=== PATIENT | female | born 1965 | race Two or more races ===

== ENCOUNTER 2018-12-14 20:39 | Emergency (ER) | payer OTHER ==
[~2018-12-14] VITALS: Ht 157.5 cm; Wt 96.6 kg
[2018-12-14] MEDS ORDERED: [UNRECOGNIZED DRUG - OTHER] (20:49)
[2018-12-14] MEDS ORDERED: LOSARTAN-HCTZ1 EACH (20:50)
== END 2018-12-15 03:49 | disposition home or self-care (01) ==
LOC: ER 20:39
DX: N39.0 Urinary tract infection, site not specified (principal); M25.562 Pain in left knee

== ENCOUNTER 2019-04-15 11:25 | Inpatient (IN) | payer OTHER ==
[~2019-04-15] VITALS: Ht 157.5 cm; Wt 96.6 kg
[~2019-04-15 11:25] MED LIST: HYDROXYCHLOROQUINE; LOSARTAN-HCTZ1 EACH; VITAMINA D3; [UNRECOGNIZED DRUG - OTHER]
--- NOTE | 2019-04-15 12:30 | NUR ---
SE RECIBE PTE ALERTA Y ORIENTADA X3,REFIERE DOLOR ABDOMINAL ,REFIERE QUE ESTA TOMANDO ANTIBIOTICOS POR BELGICA INFECCION REFIERE QUE LOS SNTIBIOTICOS LE HICIERON PRADEEP EN EL ABDOMEN.
--- NOTE | 2019-04-15 13:30 | NUR ---
SE ORIENTA A PTE SOBRE PROCESO DE VENOPUNCION, MILLICENT DE MUESTRAS, ADMINISTRACION DE MED IV & ESTUDIOS A REALIZAR LOS CUALES BAJAN A PTE A CENTRO DE IMAGENES A PETICION DE RADIOLOGO.
[2019-04-19] MEDS ORDERED: VITAMIN D3400 UNI1 (11:27)
[2019-04-19] MEDS ORDERED: HYDROXYCHLOROQ200 MG (11:29)
[2019-05-17] MEDS ORDERED: Neurin-Sl Tablet Sl SL (09:23)
[2019-05-17] MEDS ORDERED: PREDNISONE 5MG PO (09:23)
[2019-05-17] MEDS ORDERED: LOSARTAN POTAS100 MG PO (09:23)
[2019-05-17] MEDS ORDERED: Vitamin B-6 PO (09:23)
[2019-05-17] MEDS ORDERED: ULTRAM50 MG PO (09:23)
[2019-05-17] MEDS ORDERED: INTESTINEX680 M1 PO (09:23)
[2019-05-17] MEDS ORDERED: AMLODIPINE BESYL5 MG PO (09:23)
[2019-05-17] MEDS ORDERED: CARAFATE1 GM PO (09:23)
[2019-05-17] MEDS ORDERED: OMEPRAZOLE MAGN20 MG PO (09:25)
== END 2019-05-17 12:35 | disposition home or self-care (01) | DRG 329 ==
LOC: ER 11:25 → ICU 14:31 → ICU-2 14:31 → ICU 04-25 11:48 → SURG 05-04 14:08 → SURH 05-13 12:43
PROVIDERS: ADMIT Surgery
PROC: 30233N1 Transfusion of Nonautologous Red Blood Cells into Peripheral Vein, Percutaneous Approach (ICD-10-PCS; 2019-04-15)
PROC: BW21ZZZ Computerized Tomography (CT Scan) of Abdomen and Pelvis (ICD-10-PCS; 2019-04-15)
PROC: 02HV33Z Insertion of Infusion Device into Superior Vena Cava, Percutaneous Approach (ICD-10-PCS; 2019-04-15)
PROC: 05HB33Z Insertion of Infusion Device into Right Basilic Vein, Percutaneous Approach (ICD-10-PCS; 2019-04-16)
PROC: 3E0336Z Introduction of Nutritional Substance into Peripheral Vein, Percutaneous Approach (ICD-10-PCS; 2019-04-16)
PROC: 0DH67UZ Insertion of Feeding Device into Stomach, Via Natural or Artificial Opening (ICD-10-PCS; 2019-04-18)
PROC: 3E0G76Z Introduction of Nutritional Substance into Upper GI, Via Natural or Artificial Opening (ICD-10-PCS; 2019-04-18)
PROC: BW21Y0Z Computerized Tomography (CT Scan) of Abdomen and Pelvis using Other Contrast, Unenhanced and Enhanced (ICD-10-PCS; 2019-04-19)
PROC: 0W9F30Z Drainage of Abdominal Wall with Drainage Device, Percutaneous Approach (ICD-10-PCS; 2019-04-20)
PROC: B246ZZZ Ultrasonography of Right and Left Heart (ICD-10-PCS; 2019-04-21)
PROC: B54DZZZ Ultrasonography of Bilateral Lower Extremity Veins (ICD-10-PCS; 2019-04-21)
PROC: 0BH17EZ Insertion of Endotracheal Airway into Trachea, Via Natural or Artificial Opening (ICD-10-PCS; 2019-04-21)
PROC: 5A1945Z Respiratory Ventilation, 24-96 Consecutive Hours (ICD-10-PCS; 2019-04-21)
PROC: 4A033R1 Measurement of Arterial Saturation, Peripheral, Percutaneous Approach (ICD-10-PCS; 2019-04-21)
PROC: 3E0F7GC Introduction of Other Therapeutic Substance into Respiratory Tract, Via Natural or Artificial Opening (ICD-10-PCS; 2019-04-21)
PROC: BB24Y0Z Computerized Tomography (CT Scan) of Bilateral Lungs using Other Contrast, Unenhanced and Enhanced (ICD-10-PCS; 2019-04-26)
PROC: BW21Y0Z Computerized Tomography (CT Scan) of Abdomen and Pelvis using Other Contrast, Unenhanced and Enhanced (ICD-10-PCS; 2019-04-26)
PROC: 0D1N0Z4 Bypass Sigmoid Colon to Cutaneous, Open Approach (ICD-10-PCS; 2019-04-27)
PROC: 0W9F0ZZ Drainage of Abdominal Wall, Open Approach (ICD-10-PCS; 2019-04-27)
PROC: 0DTU0ZZ Resection of Omentum, Open Approach (ICD-10-PCS; 2019-04-27)
PROC: 0DTN0ZZ Resection of Sigmoid Colon, Open Approach (ICD-10-PCS; principal; 2019-04-27 03:15)
PROC: 4A12X4Z Monitoring of Cardiac Electrical Activity, External Approach (ICD-10-PCS; 2019-05-04)
PROC: BW21Y0Z Computerized Tomography (CT Scan) of Abdomen and Pelvis using Other Contrast, Unenhanced and Enhanced (ICD-10-PCS; 2019-05-09)
PROC: 0W9F30Z Drainage of Abdominal Wall with Drainage Device, Percutaneous Approach (ICD-10-PCS; 2019-05-11)
PROC: 0W9930Z Drainage of Right Pleural Cavity with Drainage Device, Percutaneous Approach (ICD-10-PCS; 2019-05-12)
DX: K57.21 Diverticulitis of large intestine with perforation and abscess with bleeding (principal); A41.9 Sepsis, unspecified organism; J95.821 Acute postprocedural respiratory failure; E27.49 Other adrenocortical insufficiency; N39.0 Urinary tract infection, site not specified; R18.8 Other ascites; J91.8 Pleural effusion in other conditions classified elsewhere; I31.3 Pericardial effusion (noninflammatory); N17.8 Other acute kidney failure; I27.0 Primary pulmonary hypertension; M96.89 Other intraoperative and postprocedural complications and disorders of the musculoskeletal system; J95.89 Other postprocedural complications and disorders of respiratory system, not elsewhere classified; J98.11 Atelectasis; L02.211 Cutaneous abscess of abdominal wall; E09.9 Drug or chemical induced diabetes mellitus without complications; T38.0X5A Adverse effect of glucocorticoids and synthetic analogues, initial encounter; D72.828 Other elevated white blood cell count; E86.0 Dehydration; M06.89 Other specified rheumatoid arthritis, multiple sites; K52.89 Other specified noninfective gastroenteritis and colitis; K66.8 Other specified disorders of peritoneum; I34.0 Nonrheumatic mitral (valve) insufficiency; I07.1 Rheumatic tricuspid insufficiency; F43.22 Adjustment disorder with anxiety; D50.0 Iron deficiency anemia secondary to blood loss (chronic); B96.7 Clostridium perfringens [C. perfringens] as the cause of diseases classified elsewhere; B95.2 Enterococcus as the cause of diseases classified elsewhere; B96.89 Other specified bacterial agents as the cause of diseases classified elsewhere; B96.6 Bacteroides fragilis [B. fragilis] as the cause of diseases classified elsewhere; E88.09 Other disorders of plasma-protein metabolism, not elsewhere classified

== ENCOUNTER 2020-01-16 06:30 | Day surgery (SDC) | payer OTHER ==
[~2020-01-16 06:30] MED LIST changes: +AMLODIPINE BESYL5 MG PO; +CARAFATE1 GM PO; +HYDROXYCHLOROQ200 MG; +INTESTINEX680 M1 PO; +LOSARTAN POTAS100 MG PO; +Neurin-Sl Tablet Sl SL; +OMEPRAZOLE MAGN20 MG PO; +PREDNISONE 5MG PO; +ULTRAM50 MG PO; +VITAMIN D3400 UNI1; +Vitamin B-6 PO
== END 2020-01-16 14:30 | disposition home or self-care (01) ==
LOC: AMB-ENDOS 06:30 → ADM 14:00 → AMB-ENDOS 14:30
PROVIDERS: ATTEND Surgery
DX: K62.89 Other specified diseases of anus and rectum (principal); Z93.3 Colostomy status; Z20.828 Contact with and (suspected) exposure to other viral communicable diseases

== ENCOUNTER 2020-04-18 10:57 | Emergency (ER) | payer OTHER ==
[~2020-04-18] VITALS: Ht 157.5 cm; Wt 72.6 kg
[2020-04-18] MEDS ORDERED: TIVORBEX20 MG (11:04)
[2020-04-18] MEDS ORDERED: CIPRO500 MG PO (16:06)
[2020-04-18] MEDS ORDERED: KETO10TA2 PO (16:07)
== END 2020-04-18 19:34 | disposition home or self-care (01) ==
LOC: ER 10:57
DX: N39.0 Urinary tract infection, site not specified (principal); R10.84 Generalized abdominal pain; Z03.818 Encounter for observation for suspected exposure to other biological agents ruled out

== ENCOUNTER → 2020-05-15 08:00 | Outpatient (CLI) | payer OTHER ==
[~2020-05-15 08:00] MED LIST changes: +CIPRO500 MG PO; +KETO10TA2 PO; +TIVORBEX20 MG
== END | disposition home or self-care (01) ==
LOC: LAB 08:00 → SURH 05-22 10:30 → EDSTATUS 05-22 10:30 → SURH 05-22 13:30
PROVIDERS: ATTEND Surgery
DX: K57.20 Diverticulitis of large intestine with perforation and abscess without bleeding (principal); Z20.828 Contact with and (suspected) exposure to other viral communicable diseases; Z93.3 Colostomy status; R10.32 Left lower quadrant pain; M05.8A Other rheumatoid arthritis with rheumatoid factor of other specified site; I10 Essential (primary) hypertension

== ENCOUNTER 2020-05-23 13:46 | Outpatient (CLI) | payer OTHER | END 2020-05-23 13:53 | disposition home or self-care (01) | LOC: LAB 13:46 | PROVIDERS: ATTEND Internal Medicine Geriatric Medicine | DX: U07.1 COVID-19 (principal) ==

== ENCOUNTER 2020-07-17 07:00 | Inpatient (IN) | payer OTHER ==
[~2020-07-17] VITALS: Ht 157.5 cm; Wt 77.1 kg
== END 2020-07-26 13:07 | DRG 470 ==
LOC: O/R 07-24 06:00 → SURH 07-24 08:49
PROVIDERS: ADMIT Orthopaedic Surgery; ATTEND Orthopaedic Surgery
PROC: 0SRC0J9 Replacement of Right Knee Joint with Synthetic Substitute, Cemented, Open Approach (ICD-10-PCS; principal; 2020-07-24 06:00)
DX: M17.11 Unilateral primary osteoarthritis, right knee (principal); D62 Acute posthemorrhagic anemia; I11.9 Hypertensive heart disease without heart failure; Z79.52 Long term (current) use of systemic steroids; Z20.822 Contact with and (suspected) exposure to COVID-19

== ENCOUNTER 2021-05-17 17:32 | Emergency (ER) | payer OTHER ==
[~2021-05-17] VITALS: Ht 157.5 cm; Wt 81.2 kg
[2021-05-17] MEDS ORDERED: CIPRO500 MG PO (21:32)
== END 2021-05-17 21:41 | disposition home or self-care (01) ==
LOC: ER 17:32
DX: N39.0 Urinary tract infection, site not specified (principal); N18.9 Chronic kidney disease, unspecified; E86.0 Dehydration

== ENCOUNTER 2021-06-28 21:43 | Emergency (ER) | payer OTHER ==
[~2021-06-28] VITALS: Ht 157.5 cm; Wt 81.2 kg
[2021-06-29] MEDS ORDERED: CEFDINIR300 MG PO (04:08)
[2021-06-29] MEDS ORDERED: PEPCID AC20 MG PO (04:08)
== END 2021-06-29 09:13 | disposition home or self-care (01) ==
LOC: ER 21:43
DX: K29.60 Other gastritis without bleeding (principal); Z98.890 Other specified postprocedural states; E86.0 Dehydration; N39.0 Urinary tract infection, site not specified; I10 Essential (primary) hypertension

== ENCOUNTER 2021-07-17 15:31 | Inpatient (IN) | payer OTHER ==
[~2021-07-17] VITALS: Ht 157.5 cm; Wt 81.2 kg
[~2021-07-17 15:31] MED LIST changes: +CEFDINIR300 MG PO; +PEPCID AC20 MG PO
[2021-07-17] MEDS ORDERED: TIVORBEX20 MG (15:39)
[2021-07-23] MEDS ORDERED: INTEGRA F CAPS1 EACH PO (15:07)
[2021-07-23] MEDS ORDERED: ABANEU-SL TABL1 EACH SL (15:07)
[2021-07-23] MEDS ORDERED: PEPCID AC20 MG PO (15:07)
== END 2021-07-23 18:20 | disposition home or self-care (01) | DRG 690 ==
LOC: ER 15:31 → SEC-K 20:16 → MEDI 20:16
PROVIDERS: ADMIT Internal Medicine Geriatric Medicine; ATTEND Internal Medicine Geriatric Medicine
DX: N39.0 Urinary tract infection, site not specified (principal); B96.89 Other specified bacterial agents as the cause of diseases classified elsewhere; E86.0 Dehydration; E83.52 Hypercalcemia; D72.829 Elevated white blood cell count, unspecified; E87.8 Other disorders of electrolyte and fluid balance, not elsewhere classified; E05.80 Other thyrotoxicosis without thyrotoxic crisis or storm; Z74.01 Bed confinement status; Z20.822 Contact with and (suspected) exposure to COVID-19; E11.22 Type 2 diabetes mellitus with diabetic chronic kidney disease; N18.9 Chronic kidney disease, unspecified; Z79.4 Long term (current) use of insulin

== ENCOUNTER 2022-09-23 17:16 | Inpatient (IN) | payer OTHER ==
[~2022-09-23] VITALS: Ht 157.5 cm; Wt 81.2 kg
[~2022-09-23 17:16] MED LIST changes: +ABANEU-SL TABL1 EACH SL; +INTEGRA F CAPS1 EACH PO
--- NOTE | 2022-09-23 17:52 | NUR ---
PACIENTE ALERTAS Y ORIENTADA X3, ACOMPANADA DE HIJO. ESTA REFIERE DR E MEDEL LE INDICO PASAR POR ER PARA ADMISION POR RESULTADO DE PROTEINAS ELEVADAS. (PACIENTE NO TIENE REFERIDO NI RESULTADO DE LABORATORIO)
[2022-09-23] MEDS ORDERED: MILLIPRED5 MG (17:56)
--- NOTE | 2022-09-23 21:23 | NUR ---
SE ORIENTA PTE SOBRE MILLICENT DE MUESTRAS LAS CUALES SE ETRAEN BAJO MEDIDAS ASEPTICAS.
--- NOTE | 2022-09-24 02:04 | NUR ---
SE ORIENTA A PTE SOBRE TRATAMIENTO A RECIBIR EN EL AREA LA MISMA REFIERE ENTENDER, SE CANALIZA EN BRAZO DERECHO CON ANGIO #20, EL MISMO ESTA PATENTE SIN EDEMA NI ERITEMA, SE COLOCA MEDICAMENTO JENNIFER ORDEN MEDICA, SE BHARAT EN EMELIA CON VENA ABIERTA Y BARANDAS ELEVADAS.
--- NOTE | 2022-09-24 07:22 | NUR ---
SE RECIBE PTE DEL TURNO ANTERIOR, ALERTA Y ORIENTADA EN ELROY LIN ESFERAS, UBICADA EN EMELIA, NIVEL MAS BAJO, ESCAMILLA DE IDENTIFICACION Y BARANDAS ELEVADAS POR PRECAUCION, EN COMPANIA DE FAMILIAR. SE OBSERVA CON BUEN PATRON RESPIRATORIO. PIEL TIBIA AL TACTO. IV PATENTE Y RASHID DE EDEMA O ERITEMA RECIBIENDO 0.9% NSS @150ML/HR. PENDIENTE CONSULTA CON DR Junior MEDEL (MEDICINA INTERNA). SE MENTIENE BAJO OBSERVACION.
--- NOTE | 2022-09-24 15:38 | NUR ---
SE RECIBE PTE ALERTA Y ORIENTADA X3 EN COMPANIA DE FAMILIAR EN EMELIA CON BARANDAS ELEVADAS. PTE CON CANALIZACION EN BRAZO DERECHO SE OBSERVA AREA RASHID DE EDEMA Y ENROJECIMIENTO. PTE CON DRIP .9NSS BAJANDO A 150ML/HR. PTE PENDIENTE CONSULTA CON MEDICINA INTERNA DR. Racheal MEDEL. SE MANTIENE PTE EN OBSERVACION POR CAMBIO EN OBSERVACION. SE ORIENTA A NOTIFICAR CAMBIOS.
--- NOTE | 2022-09-25 00:56 | NUR ---
SE EDUCA PTE SOBRE USO Y EFECTO DE MEDICAMENTOS LA MISMA REFIERE ENTENDER, SE LE ADMINISTRA MEDICAMENTO JENNIFRE ORDEN MEDICA, LOS MISMOS AL MOMENTO SON EFECTIVOS, PTE EN EMELIA CON BARANDAS ELEVADAS.
--- NOTE | 2022-09-25 07:04 | NUR ---
SE RECIBE PTE FEMENINA DE 57 YRS ALERTA CONCIENTE Y TRANQUILA EN EMELIA CON BARABDA ELEVADA. PTE SE OBSERVA CON .9NSS 150ML HRS . SE MANTIENE EN CONSULTA CON LA
== END 2022-10-02 20:28 | disposition home or self-care (01) | DRG 872 ==
LOC: ER 17:16 → MEDI 09-25 09:36
PROVIDERS: ADMIT Internal Medicine; ATTEND Internal Medicine
PROC: BW211ZZ Computerized Tomography (CT Scan) of Abdomen and Pelvis using Low Osmolar Contrast (ICD-10-PCS; 2022-09-24)
PROC: BG44ZZZ Ultrasonography of Thyroid Gland (ICD-10-PCS; 2022-09-25)
PROC: 30233N1 Transfusion of Nonautologous Red Blood Cells into Peripheral Vein, Percutaneous Approach (ICD-10-PCS; principal; 2022-09-28)
DX: A41.9 Sepsis, unspecified organism (principal); N39.0 Urinary tract infection, site not specified; N17.9 Acute kidney failure, unspecified; E27.3 Drug-induced adrenocortical insufficiency; E05.80 Other thyrotoxicosis without thyrotoxic crisis or storm; D64.9 Anemia, unspecified; E86.0 Dehydration; E88.09 Other disorders of plasma-protein metabolism, not elsewhere classified; M06.9 Rheumatoid arthritis, unspecified; T38.0X5A Adverse effect of glucocorticoids and synthetic analogues, initial encounter; Y92.009 Unspecified place in unspecified non-institutional (private) residence as the place of occurrence of the external cause; Z93.3 Colostomy status; Z90.49 Acquired absence of other specified parts of digestive tract; Z79.52 Long term (current) use of systemic steroids

== ENCOUNTER 2022-11-06 13:49 | Outpatient (CLI) | payer OTHER ==
[~2022-11-06 13:49] MED LIST changes: +MILLIPRED5 MG
== END 2022-11-06 13:59 | disposition home or self-care (01) ==
LOC: RAD 13:49
PROVIDERS: ATTEND Orthopaedic Surgery
DX: M25.561 Pain in right knee (principal); M25.562 Pain in left knee

== ENCOUNTER 2022-11-28 11:32 | Outpatient (CLI) | payer OTHER | END 2022-11-28 11:36 | disposition home or self-care (01) | LOC: SONOGRAMA 11:32 | PROVIDERS: ATTEND Orthopaedic Surgery | DX: M25.512 Pain in left shoulder (principal); M25.511 Pain in right shoulder ==

== ENCOUNTER 2023-08-12 13:28 | Inpatient (IN) | payer OTHER ==
[~2023-08-12] VITALS: Ht 152.4 cm; Wt 72.6 kg
[2023-08-12] MEDS ORDERED: METAXALONE400 MG PO (13:59)
[2023-08-12] MEDS ORDERED: FAMOTIDINE/PF 20 MG/2 ML VIAL IV ONE (14:30)
[2023-08-12] MEDS ORDERED: ONDANSETRON HCL 2 MG/ML VIAL IV ONE (14:30)
[2023-08-12] MEDS ORDERED: 0.9 % SODIUM CHLORIDE 500 ML IV ONE (14:30)
[2023-08-12 16:00] LABS: MEAN CELL VOLUME 93.4 fL (80.00-100.00); MEAN CORPUSCULAR HGB CONC 33.2 g/dl (32.0-36.0); PLATELET COUNT 402 K/uL (150-450); RED BLOOD COUNT 2.19 M/uL (4.00-6.00); RED CELL DISTRIBUTION WIDTH 14.9 % (11.5-14.5)
[2023-08-12 16:04] LABS: HEMATOCRIT 20.5 % (36.0-45.00); HEMOGLOBIN 6.8 g/dL (12.0-15.00)
[2023-08-12] MEDS ORDERED: FUROsemide 20 MG/2 ML VIAL IV SCH ×2 (16:15→18:30)
[2023-08-12 16:32] LABS: CALCIUM 6.8 mg/dL (8.5-10.1); POTASSIUM 4.8 mEq/L (3.5-5.1)
[2023-08-12 16:49] LABS: PH,URINE 5.5 (5.0-8.0); URINE APPEARANCE Cloudy; URINE BILIRRUBIN Negative (NEGATIVE); URINE BLOOD Moderate; URINE COLOR Yellow; URINE LEUKOCYTE Negative; URINE NITRATE Negative; URINE PROTEIN >=1000 (NEGATIVE); URINE UROBILINOGEN 0.2 E.U./dl
[2023-08-12 16:52] LABS: URINE BACTERIA 527.9 uL (0.0-1933); URINE RBC 38.2 uL (0.0-20.8)
[2023-08-12 16:53] LABS: CREATININE SERUM 10.7 mg/dL (0.55-1.02); GFR 3.67
[2023-08-12 16:53] LABS: ob POSITIVE (NEGATIVE)
[2023-08-12 17:14] LABS: URINE GLUCOSE 250 MG/DL (NEGATIVE)
[2023-08-12] MEDS ORDERED: PANTOPRAZOLE SODIUM 40 MG/VIAL VIAL IV SCH (18:21)
[2023-08-12] MEDS ORDERED: 0.9 % SODIUM CHLORIDE 1,000 ML IV SCH (18:30)
[2023-08-12] MEDS ORDERED: ACETAMINOPHEN 500 MG GEL..CAP PO PRN (18:30)
[2023-08-12] MEDS ORDERED: SODIUM BICARBONATE 50 MEQ in SODIUM CHLORIDE 0.45 % 1,000 ML IV ONE (18:45)
[2023-08-12 19:58] LABS: PROTHROMBIN TIME 10.5 SECONDS (9.0-11.5)
[2023-08-12 20:41] LABS: ABG PH 7.282 (7.35-7.45); ABG pCO2 24.2 mmHg (35-45); BASE EXCESS -13.5 mmol/l; BICARBONATE 11.2 mmol/l (23-25); SaO2 98.7 %; Tco2 11.9 mmol/l
[2023-08-12 20:42] LABS: allen test SATISFACTORY; o2 32 %; puncture site RADIAL RIGHT
[2023-08-12] MEDS ORDERED: CEFTRIAXONE SODIUM 1,000 MG in DEXTROSE 5 % IN WATER 100 ML IV SCH (21:00)
[2023-08-12] MEDS ORDERED: SODIUM BICARBONATE 1 MEQ/ML DISP.SYRIN 50ML IV ONE (21:45)
[2023-08-13] MEDS ORDERED: IRON FUM,PS/FOLIC/BCOMP,C NO.9 1 CAP CAPSULE PO SCH (09:00)
[2023-08-13] MEDS ORDERED: CLOTRIMAZOLE 10 MG TROCHE MM SCH (17:00)
[2023-08-13] MEDS ORDERED: CEFTRIAXONE SODIUM 2,000 MG VIAL IV SCH (17:00)
[2023-08-13 20:17] LABS: ALBUMIN 2.2 gm/dL (3.4-5.0); BILIRUBIN TOTAL 0.29 mg/dL (0.3-1.2); GLOBULINA 3.7 G/DL (2.4-3.5); POTASSIUM 4.78 mEq/L (3.5-5.1); TOTAL PROTEIN 5.9 gm/dL (6.4-8.2)
[2023-08-13 20:22] LABS: CREATININE SERUM 9.84 mg/dL (0.55-1.02); GFR 4.04
[2023-08-13 20:23] LABS: CALCIUM 6.3 mg/dL (8.5-10.1)
[2023-08-13] MEDS ORDERED: hydrALAZINE HCL 20 MG VIAL IV PRN (23:00)
[2023-08-14 09:07] LABS: HEMATOCRIT 32.1 % (36.0-45.00); HEMOGLOBIN 10.9 g/dL (12.0-15.00); MEAN CELL VOLUME 91.1 fL (80.00-100.00); MEAN CORPUSCULAR HEMOGLOBIN 30.8 pg (27.00-32.0); MEAN CORPUSCULAR HGB CONC 33.8 g/dl (32.0-36.0); PLATELET COUNT 346 K/uL (150-450); RED BLOOD COUNT 3.53 M/uL (4.00-6.00); RED CELL DISTRIBUTION WIDTH 15.6 % (11.5-14.5)
[2023-08-14 10:06] LABS: ALBUMIN 2.1 gm/dL (3.4-5.0); BILIRUBIN TOTAL 0.4 mg/dL (0.3-1.2); GLOBULINA 3.6 G/DL (2.4-3.5); POTASSIUM 4.71 mEq/L (3.5-5.1); TOTAL PROTEIN 5.7 gm/dL (6.4-8.2)
[2023-08-14 10:14] LABS: GFR 4.2
[2023-08-14 10:22] LABS: CREATININE SERUM 9.51 mg/dL (0.55-1.02)
[2023-08-14 10:23] LABS: CALCIUM 6.2 mg/dL (8.5-10.1); PHOSPHOROUS 8.9 mg/dL (2.5-4.9)
[2023-08-14 10:24] LABS: C-REACTIVE PROTEIN 12.9 MG/DL (0.00-0.29); MAGNESIUM 0.9 mg/dL (1.8-2.4)
[2023-08-14] MEDS ORDERED: FUROsemide 20 MG/2 ML VIAL IV STA (10:53)
[2023-08-14] MEDS ORDERED: MAGNESIUM SULFATE IN WATER 50 ML IV ONE (11:00)
[2023-08-14] MEDS ORDERED: MEROPENEM 500 MG/VIAL VIAL IV SCH (17:00)
[2023-08-14 19:15] LABS: FERRITIN 1625.8 NG/ML (8-252)
[2023-08-15 01:09] LABS: URINE APPEARANCE Clear; URINE BILIRRUBIN Negative (NEGATIVE); URINE BLOOD Large; URINE COLOR Yellow; URINE LEUKOCYTE Small; URINE NITRATE Negative; URINE UROBILINOGEN 0.2 E.U./dl
[2023-08-15 01:12] LABS: URINE BACTERIA 123.4 uL (0.0-1933); URINE EPITHELIAL CELLS 4.4 uL (0.0-38.8); URINE RBC 1526.1 uL (0.0-20.8); URINE WBC 54.7 uL (0.0-23.2)
[2023-08-15 01:27] LABS: URINE GLUCOSE 500 MG/DL (NEGATIVE); URINE PROTEIN 300 (NEGATIVE)
[2023-08-15 07:41] LABS: BILIRUBIN TOTAL 0.38 mg/dL (0.3-1.2); CALCIUM 7.8 mg/dL (8.5-10.1); GFR 7.29; GLOBULINA 3.7 G/DL (2.4-3.5); POTASSIUM 3.71 mEq/L (3.5-5.1); TOTAL PROTEIN 5.7 gm/dL (6.4-8.2)
[2023-08-15] MEDS ORDERED: Cyanocobalamin/Mecobalamin 1 TAB.SL SL SCH (09:00)
[2023-08-15] MEDS ORDERED: SOD FERRIC GLUC COMPLX/SUCROSE 62.5 MG/5 ML AMPUL IV SCH (09:00)
[2023-08-15] MEDS ORDERED: PANTOPRAZOLE SODIUM 40 MG TABLET.DR PO SCH ×2 (09:00)
[2023-08-15 10:18] LABS: CREATININE SERUM 5.9 mg/dL (0.55-1.02)
[2023-08-15] MEDS ORDERED: ONDANSETRON HCL 2 MG/ML VIAL IV PRN (10:30)
[2023-08-17 05:46] LABS: HEMOGLOBIN 10.5 g/dL (12.0-15.00); MEAN CELL VOLUME 92.1 fL (80.00-100.00); MEAN CORPUSCULAR HEMOGLOBIN 31.1 pg (27.00-32.0); MEAN CORPUSCULAR HGB CONC 33.8 g/dl (32.0-36.0); PLATELET COUNT 257 K/uL (150-450); RED BLOOD COUNT 3.37 M/uL (4.00-6.00); RED CELL DISTRIBUTION WIDTH 15.5 % (11.5-14.5)
[2023-08-17 07:39] LABS: BILIRUBIN TOTAL 0.31 mg/dL (0.3-1.2); CALCIUM 7.4 mg/dL (8.5-10.1); GFR 5.05; GLOBULINA 3.6 G/DL (2.4-3.5); POTASSIUM 3.77 mEq/L (3.5-5.1); TOTAL PROTEIN 5.6 gm/dL (6.4-8.2)
[2023-08-17 08:27] LABS: CREATININE SERUM 8.11 mg/dL (0.55-1.02)
[2023-08-17] MEDS ORDERED: METHYLPREDNISOLONE SOD SUCC 125 MG VIAL IV ONE (20:30)
[2023-08-17] MEDS ORDERED: DIPHENHYDRAMINE HCL 50 MG/ML VIAL 1ML IV ONE (20:30)
[2023-08-18 05:20] LABS: HEMATOCRIT 31.9 % (36.0-45.00); MEAN CORPUSCULAR HEMOGLOBIN 31.3 pg (27.00-32.0); MEAN CORPUSCULAR HGB CONC 34.3 g/dl (32.0-36.0); PLATELET COUNT 173 K/uL (150-450); RED CELL DISTRIBUTION WIDTH 15.6 % (11.5-14.5)
[2023-08-18 06:00] LABS: BILIRUBIN TOTAL 0.27 mg/dL (0.3-1.2); CALCIUM 7.7 mg/dL (8.5-10.1); GFR 8.22; GLOBULINA 3.8 G/DL (2.4-3.5); MAGNESIUM 1.9 mg/dL (1.8-2.4); POTASSIUM 3.75 mEq/L (3.5-5.1); TOTAL PROTEIN 5.8 gm/dL (6.4-8.2)
[2023-08-18 06:23] LABS: CREATININE SERUM 5.32 mg/dL (0.55-1.02)
[2023-08-18 16:11] LABS: hgb a 97.5 % (96.4-98.8); hgb a2 2.5 % (1.8-3.2); hgb f 0 % (0.0-2.0); hgb s 0 % (0.0)
[2023-08-19 05:41] LABS: ALBUMIN 1.9 gm/dL (3.4-5.0); CALCIUM 7.6 mg/dL (8.5-10.1); GFR 5.93; POTASSIUM 3.77 mEq/L (3.5-5.1)
[2023-08-19 06:39] LABS: CREATININE SERUM 7.06 mg/dL (0.55-1.02)
[2023-08-19] MEDS ORDERED: AMINO ACIDS/PROTEIN HYDROLYS 30 ML BLIST.PACK PO SCH (21:52)
[2023-08-20 08:07] LABS: g6pd quant 338 (127-427); rbc 3.67 x10E6/uL (3.77-5.28)
[2023-08-21 06:19] LABS: HEMATOCRIT 31.1 % (36.0-45.00); HEMOGLOBIN 10.1 g/dL (12.0-15.00); MEAN CELL VOLUME 92.4 fL (80.00-100.00); MEAN CORPUSCULAR HGB CONC 32.4 g/dl (32.0-36.0); PLATELET COUNT 246 K/uL (150-450); RED BLOOD COUNT 3.37 M/uL (4.00-6.00); RED CELL DISTRIBUTION WIDTH 15.6 % (11.5-14.5)
[2023-08-21 07:17] LABS: ALBUMIN 2.1 gm/dL (3.4-5.0); BILIRUBIN TOTAL 0.29 mg/dL (0.3-1.2); GFR 8.29; GLOBULINA 3.5 G/DL (2.4-3.5); MAGNESIUM 1.6 mg/dL (1.8-2.4); PHOSPHOROUS 3.8 mg/dL (2.5-4.9); POTASSIUM 4.24 mEq/L (3.5-5.1); TOTAL PROTEIN 5.6 gm/dL (6.4-8.2)
[2023-08-21 08:02] LABS: CREATININE SERUM 5.28 mg/dL (0.55-1.02)
[2023-08-21] MEDS ORDERED: MIDAZOLAM HCL 2 MG/2 ML VIAL IV STA (09:00)
[2023-08-22 08:34] LABS: ALBUMIN 1.9 gm/dL (3.4-5.0); BILIRUBIN TOTAL 0.25 mg/dL (0.3-1.2); CALCIUM 7.7 mg/dL (8.5-10.1); GFR 9.37; GLOBULINA 3.5 G/DL (2.4-3.5); POTASSIUM 3.99 mEq/L (3.5-5.1); TOTAL PROTEIN 5.4 gm/dL (6.4-8.2)
[2023-08-22 08:45] LABS: HEMATOCRIT 27.2 % (36.0-45.00); MEAN CELL VOLUME 92.6 fL (80.00-100.00); MEAN CORPUSCULAR HGB CONC 32.6 g/dl (32.0-36.0); PLATELET COUNT 239 K/uL (150-450); RED BLOOD COUNT 2.93 M/uL (4.00-6.00); RED CELL DISTRIBUTION WIDTH 15.3 % (11.5-14.5)
[2023-08-22 08:48] LABS: HEMOGLOBIN 8.8 g/dL (12.0-15.00)
[2023-08-22 09:43] LABS: CREATININE SERUM 4.75 mg/dL (0.55-1.02)
[2023-08-23 07:46] LABS: HEMATOCRIT 27.8 % (36.0-45.00); HEMOGLOBIN 9.2 g/dL (12.0-15.00); MEAN CELL VOLUME 93.3 fL (80.00-100.00); MEAN CORPUSCULAR HEMOGLOBIN 30.8 pg (27.00-32.0); PLATELET COUNT 287 K/uL (150-450); RED BLOOD COUNT 2.98 M/uL (4.00-6.00); RED CELL DISTRIBUTION WIDTH 15.6 % (11.5-14.5)
[2023-08-23] MEDS ORDERED: DIPHENHYDRAMINE HCL 50 MG CAPSULE PO SCH (21:00)
[2023-08-24 06:36] LABS: HEMATOCRIT 26.1 % (36.0-45.00); MEAN CELL VOLUME 93.1 fL (80.00-100.00); MEAN CORPUSCULAR HGB CONC 33.4 g/dl (32.0-36.0); PLATELET COUNT 341 K/uL (150-450); RED CELL DISTRIBUTION WIDTH 15.1 % (11.5-14.5)
[2023-08-24 06:44] LABS: HEMOGLOBIN 8.7 g/dL (12.0-15.00)
[2023-08-24 07:17] LABS: MAGNESIUM 1.8 mg/dL (1.8-2.4); PHOSPHOROUS 6.8 mg/dL (2.5-4.9)
[2023-08-24 07:25] LABS: ALBUMIN 1.8 gm/dL (3.4-5.0); BILIRUBIN TOTAL 0.25 mg/dL (0.3-1.2); CALCIUM 7.9 mg/dL (8.5-10.1); GFR 7.17; GLOBULINA 3.7 G/DL (2.4-3.5); POTASSIUM 4.06 mEq/L (3.5-5.1); TOTAL PROTEIN 5.5 gm/dL (6.4-8.2)
[2023-08-24 07:58] LABS: CREATININE SERUM 5.99 mg/dL (0.55-1.02)
[2023-08-24] MEDS ORDERED: VANCOMYCIN HCL 1,000 MG VIAL IV ONE (13:45)
[2023-08-24 14:36] LABS: PLATELET ESTIMATE NORMAL (NORMAL)
[2023-08-24 20:57] LABS: URINE APPEARANCE Clear; URINE BILIRRUBIN Negative (NEGATIVE); URINE BLOOD Moderate; URINE COLOR Yellow; URINE LEUKOCYTE Trace; URINE NITRATE Negative; URINE PROTEIN >=1000 (NEGATIVE); URINE UROBILINOGEN 0.2 E.U./dl
[2023-08-24 20:58] LABS: URINE EPITHELIAL CELLS 15.9 uL (0.0-38.8); URINE RBC 349.4 uL (0.0-20.8); URINE WBC 143.7 uL (0.0-23.2)
[2023-08-24 21:14] LABS: URINE GLUCOSE 250 MG/DL (NEGATIVE)
[2023-08-24] MEDS ORDERED: BUPIVACAINE HCL/PF 0.5% 30ML ML ONE ×2 (21:23→21:40)
[2023-08-24] MEDS ORDERED: LIDOCAINE HCL 1%/Epi 20ML VIAL IJ ONE ×2 (21:23→22:30)
[2023-08-24] MEDS ORDERED: BUPIVACAINE HCL 30 ML VIAL IJ ONE (22:00)
[2023-08-25] MEDS ORDERED: SOD FERRIC GLUC COMPLX/SUCROSE 62.5 MG/5 ML AMPUL IV SCH (09:29)
[2023-08-25] MEDS ORDERED: CHLORHEXIDINE GLUCONATE 120 ML BOTTLE TOP SCH (17:00)
[2023-08-25] MEDS ORDERED: NYSTATIN 15 GM,SILVER SULFADIAZINE 50 GM,ZINC OXIDE 30 GM TOP SCH (17:00)
[2023-08-25 18:43] LABS: HEMATOCRIT 31.2 % (36.0-45.00); HEMOGLOBIN 10.5 g/dL (12.0-15.00); MEAN CELL VOLUME 91.4 fL (80.00-100.00); MEAN CORPUSCULAR HEMOGLOBIN 30.8 pg (27.00-32.0); MEAN CORPUSCULAR HGB CONC 33.7 g/dl (32.0-36.0); PLATELET COUNT 198 K/uL (150-450); RED BLOOD COUNT 3.41 M/uL (4.00-6.00); RED CELL DISTRIBUTION WIDTH 15.4 % (11.5-14.5)
[2023-08-26 07:55] LABS: HEMATOCRIT 29.3 % (36.0-45.00); HEMOGLOBIN 9.8 g/dL (12.0-15.00); MEAN CELL VOLUME 92.4 fL (80.00-100.00); MEAN CORPUSCULAR HEMOGLOBIN 30.9 pg (27.00-32.0); MEAN CORPUSCULAR HGB CONC 33.4 g/dl (32.0-36.0); PLATELET COUNT 216 K/uL (150-450); RED BLOOD COUNT 3.18 M/uL (4.00-6.00); RED CELL DISTRIBUTION WIDTH 15.4 % (11.5-14.5)
[2023-08-26 08:35] LABS: ALBUMIN 1.8 gm/dL (3.4-5.0); CALCIUM 8.1 mg/dL (8.5-10.1); CREATININE SERUM 3.51 mg/dL (0.55-1.02); GFR 13.28; PHOSPHOROUS 4.2 mg/dL (2.5-4.9); POTASSIUM 3.61 mEq/L (3.5-5.1)
[2023-08-26] MEDS ORDERED: EPOETIN ALFA-EPBX 10,000 UNIT/ML 2ML VIAL SUBCUTANEO SCH (17:00)
[2023-08-26] MEDS ORDERED: VANCOMYCIN HCL 500 MG VIAL IV SCH (17:00)
[2023-08-27 05:31] LABS: HEMATOCRIT 28.4 % (36.0-45.00); HEMOGLOBIN 9.6 g/dL (12.0-15.00); MEAN CELL VOLUME 92.3 fL (80.00-100.00); MEAN CORPUSCULAR HEMOGLOBIN 31.1 pg (27.00-32.0); MEAN CORPUSCULAR HGB CONC 33.7 g/dl (32.0-36.0); PLATELET COUNT 231 K/uL (150-450); RED BLOOD COUNT 3.08 M/uL (4.00-6.00); RED CELL DISTRIBUTION WIDTH 15.4 % (11.5-14.5)
[2023-08-27 06:09] LABS: ALBUMIN 1.7 gm/dL (3.4-5.0); BILIRUBIN TOTAL 0.3 mg/dL (0.3-1.2); CALCIUM 7.9 mg/dL (8.5-10.1); GFR 10.1; GLOBULINA 3.7 G/DL (2.4-3.5); POTASSIUM 3.37 mEq/L (3.5-5.1); TOTAL PROTEIN 5.4 gm/dL (6.4-8.2)
[2023-08-27 06:40] LABS: CREATININE SERUM 4.45 mg/dL (0.55-1.02)
[2023-08-28 09:09] LABS: PLATELET ESTIMATE NORMAL (NORMAL)
[2023-08-28 11:29] LABS: URINE APPEARANCE Clear; URINE BILIRRUBIN Negative (NEGATIVE); URINE BLOOD Moderate; URINE COLOR Yellow; URINE LEUKOCYTE Small; URINE NITRATE Negative; URINE PROTEIN >=1000 (NEGATIVE); URINE UROBILINOGEN 0.2 E.U./dl
[2023-08-28 11:35] LABS: URINE EPITHELIAL CELLS 7.7 uL (0.0-38.8); URINE RBC 88.9 uL (0.0-20.8); URINE WBC 279.9 uL (0.0-23.2)
[2023-08-28 11:36] LABS: URINE GLUCOSE 250 MG/DL (NEGATIVE)
[2023-08-28] MEDS ORDERED: ENOXAPARIN SODIUM 30 MG/0.3 ML SYRINGE SUBCUTANEO SCH (12:08)
[2023-08-28 12:46] LABS: ob NEGATIVE (NEGATIVE)
[2023-08-28] MEDS ORDERED: ENOXAPARIN SODIUM 80 MG/0.8 ML SYRINGE SUBCUTANEO SCH (16:47)
[2023-08-30] MEDS ORDERED: ENOXAPARIN SODIUM 80 MG/0.8 ML SYRINGE SUBCUTANEO SCH (09:00)
[2023-08-31 07:49] LABS: HEMATOCRIT 27.3 % (36.0-45.00); HEMOGLOBIN 9.3 g/dL (12.0-15.00); MEAN CELL VOLUME 91.5 fL (80.00-100.00); MEAN CORPUSCULAR HEMOGLOBIN 31.3 pg (27.00-32.0); MEAN CORPUSCULAR HGB CONC 34.2 g/dl (32.0-36.0); PLATELET COUNT 245 K/uL (150-450); RED BLOOD COUNT 2.99 M/uL (4.00-6.00); RED CELL DISTRIBUTION WIDTH 15.8 % (11.5-14.5)
[2023-08-31 08:19] LABS: ALBUMIN 1.7 gm/dL (3.4-5.0); BILIRUBIN TOTAL 0.3 mg/dL (0.3-1.2); GFR 10.62; GLOBULINA 3.8 G/DL (2.4-3.5); MAGNESIUM 1.8 mg/dL (1.8-2.4); PHOSPHOROUS 4.2 mg/dL (2.5-4.9); POTASSIUM 3.21 mEq/L (3.5-5.1); TOTAL PROTEIN 5.5 gm/dL (6.4-8.2)
[2023-08-31 08:46] LABS: CREATININE SERUM 4.26 mg/dL (0.55-1.02)
[2023-08-31] MEDS ORDERED: EPOETIN ALFA-EPBX 10,000 UNIT/ML 2ML VIAL SUBCUTANEO SCH (09:00)
[2023-08-31] MEDS ORDERED: METOPROLOL SUCCINATE 25 MG TAB.SR.24H PO SCH (19:29)
[2023-09-01 06:58] LABS: HEMATOCRIT 27.8 % (36.0-45.00); HEMOGLOBIN 9.5 g/dL (12.0-15.00); MEAN CELL VOLUME 91.7 fL (80.00-100.00); MEAN CORPUSCULAR HEMOGLOBIN 31.3 pg (27.00-32.0); MEAN CORPUSCULAR HGB CONC 34.2 g/dl (32.0-36.0); PLATELET COUNT 265 K/uL (150-450); RED BLOOD COUNT 3.04 M/uL (4.00-6.00); RED CELL DISTRIBUTION WIDTH 15.8 % (11.5-14.5)
[2023-09-01 07:11] LABS: INR 1.04; PARTIAL THROMBOPLASTIN TIME 31.9 SECONDS (22.0-34.0); PROTHROMBIN TIME 10.9 SECONDS (9.0-11.5)
[2023-09-01] MEDS ORDERED: METOPROLOL SUCCINATE 50 MG TAB.SR.24H PO SCH (09:00)
[2023-09-03 06:46] LABS: HEMATOCRIT 29.2 % (36.0-45.00); HEMOGLOBIN 9.7 g/dL (12.0-15.00); MEAN CELL VOLUME 91.8 fL (80.00-100.00); MEAN CORPUSCULAR HEMOGLOBIN 30.6 pg (27.00-32.0); MEAN CORPUSCULAR HGB CONC 33.3 g/dl (32.0-36.0); PLATELET COUNT 267 K/uL (150-450); RED BLOOD COUNT 3.18 M/uL (4.00-6.00); RED CELL DISTRIBUTION WIDTH 16.2 % (11.5-14.5)
[2023-09-03 07:07] LABS: ALBUMIN 1.7 gm/dL (3.4-5.0); BILIRUBIN TOTAL 0.24 mg/dL (0.3-1.2); GFR 9.92; GLOBULINA 4.2 G/DL (2.4-3.5); MAGNESIUM 2.1 mg/dL (1.8-2.4); PHOSPHOROUS 3.9 mg/dL (2.5-4.9); POTASSIUM 3.34 mEq/L (3.5-5.1); TOTAL PROTEIN 5.9 gm/dL (6.4-8.2)
[2023-09-03 07:41] LABS: CREATININE SERUM 4.52 mg/dL (0.55-1.02)
[2023-09-03] MEDS ORDERED: BUPIVACAINE HCL/PF 0.5% 30ML ML ONE (18:04)
[2023-09-03] MEDS ORDERED: HEPARIN SODIUM,PORCINE 500 UNITS/5 ML VIAL IV ONE ×2 (18:04→19:45)
[2023-09-03] MEDS ORDERED: BUPIVACAINE HCL 30 ML VIAL IJ ONE (19:45)
[2023-09-04] MEDS ORDERED: SOD FERRIC GLUC COMPLX/SUCROSE 62.5 MG/5 ML AMPUL IV SCH (14:18)
[2023-09-07 07:04] LABS: HEMATOCRIT 29.8 % (36.0-45.00); MEAN CELL VOLUME 92.4 fL (80.00-100.00); MEAN CORPUSCULAR HEMOGLOBIN 30.8 pg (27.00-32.0); MEAN CORPUSCULAR HGB CONC 33.4 g/dl (32.0-36.0); PLATELET COUNT 276 K/uL (150-450); RED BLOOD COUNT 3.23 M/uL (4.00-6.00); RED CELL DISTRIBUTION WIDTH 16.4 % (11.5-14.5)
[2023-09-07 07:17] LABS: CALCIUM 8.2 mg/dL (8.5-10.1); GFR 10.45; POTASSIUM 3.34 mEq/L (3.5-5.1)
[2023-09-07 07:41] LABS: CREATININE SERUM 4.32 mg/dL (0.55-1.02)
[2023-09-07] MEDS ORDERED: POTASSIUM CHLORIDE 20MEQ/100ML H2O PB IV ONE (10:45)
[2023-09-07] MEDS ORDERED: FLUCONAZOLE IN NACL,ISO-OSM 200 MG/100 ML PIGGYBAG IV ONE (16:15)
[2023-09-07] MEDS ORDERED: MEROPENEM 500 MG/VIAL VIAL IV SCH (21:00)
[2023-09-08] MEDS ORDERED: ACETAMINOPHEN 500 MG GEL..CAP PO STA (07:52)
[2023-09-08 08:02] LABS: URINE APPEARANCE Clear; URINE BILIRRUBIN Negative (NEGATIVE); URINE BLOOD Moderate; URINE COLOR Yellow; URINE LEUKOCYTE Negative; URINE NITRATE Negative; URINE UROBILINOGEN 0.2 E.U./dl
[2023-09-08 08:06] LABS: URINE BACTERIA 118.4 uL (0.0-1933); URINE EPITHELIAL CELLS 3.8 uL (0.0-38.8); URINE RBC 109.9 uL (0.0-20.8); URINE WBC 68.7 uL (0.0-23.2)
[2023-09-08 08:09] LABS: URINE GLUCOSE 250 MG/DL (NEGATIVE); URINE PROTEIN 300 (NEGATIVE)
[2023-09-08 09:34] LABS: ABG PH 7.458 (7.35-7.45); ABG pCO2 34.5 mmHg (35-45)
[2023-09-08 09:36] LABS: ABG PO2 49.3 mmHg (80-100); BASE EXCESS 0.6 mmol/l; BICARBONATE 23.9 mmol/l (23-25); SaO2 86.8 %; Tco2 24.9 mmol/l; allen test SATISFACTORY; o2 21 %; puncture site RADIAL RIGHT
[2023-09-08 10:33] LABS: HEMATOCRIT 29.8 % (36.0-45.00); MEAN CELL VOLUME 92.4 fL (80.00-100.00); MEAN CORPUSCULAR HEMOGLOBIN 30.6 pg (27.00-32.0); MEAN CORPUSCULAR HGB CONC 33.1 g/dl (32.0-36.0); PLATELET COUNT 250 K/uL (150-450); RED BLOOD COUNT 3.23 M/uL (4.00-6.00); RED CELL DISTRIBUTION WIDTH 16.2 % (11.5-14.5)
[2023-09-08 10:37] LABS: HEMOGLOBIN 9.9 g/dL (12.0-15.00)
[2023-09-08 11:14] LABS: CREATININE SERUM 3.26 mg/dL (0.55-1.02); GFR 14.46; POTASSIUM 3.37 mEq/L (3.5-5.1)
[2023-09-08 12:09] LABS: ABG PH 7.411 (7.35-7.45); ABG PO2 154.1 mmHg (80-100); BASE EXCESS -0.7 mmol/l; SaO2 99.4 %
[2023-09-08 12:10] LABS: BICARBONATE 23.6 mmol/l (23-25); Tco2 24.8 mmol/l; allen test SATISFACTORY; o2 50 %; puncture site RADIAL RIGHT
[2023-09-08] MEDS ORDERED: ACETAMINOPHEN 500 MG GEL..CAP PO SCH (14:00)
[2023-09-08] MEDS ORDERED: DIATRIZOATE MEGLUMINE, SODIUM 30 ML BOTTLE PO ONE (14:45)
[2023-09-08] MEDS ORDERED: VANCOMYCIN HCL 1,000 MG VIAL IV SCH (14:45)
[2023-09-08] MEDS ORDERED: POTASSIUM CHLORIDE 20MEQ/100ML H2O PB IV ONE (19:15)
[2023-09-08] MEDS ORDERED: FLUCONAZOLE IN NACL,ISO-OSM 2 MG/ML ML IV SCH (21:00)
[2023-09-08 21:56] LABS: URINE APPEARANCE Cloudy; URINE BILIRRUBIN Negative (NEGATIVE); URINE BLOOD Large; URINE COLOR Yellow; URINE LEUKOCYTE Trace; URINE NITRATE Negative; URINE PROTEIN >=1000 (NEGATIVE); URINE UROBILINOGEN 0.2 E.U./dl
[2023-09-08 21:59] LABS: URINE BACTERIA 463.6 uL (0.0-1933); URINE EPITHELIAL CELLS 11.4 uL (0.0-38.8); URINE RBC 280.8 uL (0.0-20.8); URINE WBC 93.3 uL (0.0-23.2)
[2023-09-08 22:08] LABS: URINE GLUCOSE 250 MG/DL (NEGATIVE)
[2023-09-09 07:11] LABS: ALBUMIN 1.5 gm/dL (3.4-5.0); BILIRUBIN TOTAL 0.36 mg/dL (0.3-1.2); CALCIUM 7.7 mg/dL (8.5-10.1); GFR 10.65; GLOBULINA 3.9 G/DL (2.4-3.5); POTASSIUM 4.22 mEq/L (3.5-5.1); TOTAL PROTEIN 5.4 gm/dL (6.4-8.2)
[2023-09-09 07:31] LABS: CREATININE SERUM 4.25 mg/dL (0.55-1.02)
[2023-09-09] MEDS ORDERED: ENALAPRIL MALEATE 10 MG TABLET PO SCH (09:00)
[2023-09-09] MEDS ORDERED: VANCOMYCIN HCL 500 MG VIAL IV SCH (17:00)
[2023-09-10 12:39] LABS: HEMATOCRIT 30.7 % (36.0-45.00); HEMOGLOBIN 10.3 g/dL (12.0-15.00); MEAN CELL VOLUME 92.3 fL (80.00-100.00); MEAN CORPUSCULAR HGB CONC 33.6 g/dl (32.0-36.0); PLATELET COUNT 175 K/uL (150-450); RED BLOOD COUNT 3.32 M/uL (4.00-6.00); RED CELL DISTRIBUTION WIDTH 16.7 % (11.5-14.5)
[2023-09-10 13:21] LABS: ALBUMIN 1.7 gm/dL (3.4-5.0); BILIRUBIN TOTAL 0.35 mg/dL (0.3-1.2); CREATININE SERUM 2.99 mg/dL (0.55-1.02); GFR 15.98; GLOBULINA 4.2 G/DL (2.4-3.5); POTASSIUM 3.45 mEq/L (3.5-5.1); TOTAL PROTEIN 5.9 gm/dL (6.4-8.2)
[2023-09-10 23:10] LABS: GIARDIA LAMBLIA EIA Negative (Negative)
[2023-09-13 09:06] LABS: campy Final report (.)
[2023-09-14 06:30] LABS: HEMATOCRIT 27.4 % (36.0-45.00); HEMOGLOBIN 9.2 g/dL (12.0-15.00); MEAN CELL VOLUME 93.6 fL (80.00-100.00); MEAN CORPUSCULAR HEMOGLOBIN 31.3 pg (27.00-32.0); MEAN CORPUSCULAR HGB CONC 33.4 g/dl (32.0-36.0); PLATELET COUNT 167 K/uL (150-450); RED BLOOD COUNT 2.93 M/uL (4.00-6.00); RED CELL DISTRIBUTION WIDTH 16.6 % (11.5-14.5)
[2023-09-14 07:23] LABS: ALBUMIN 1.7 gm/dL (3.4-5.0); CALCIUM 7.9 mg/dL (8.5-10.1); GFR 9.17; PHOSPHOROUS 4.7 mg/dL (2.5-4.9); POTASSIUM 3.22 mEq/L (3.5-5.1)
[2023-09-14 07:34] LABS: CREATININE SERUM 4.84 mg/dL (0.55-1.02)
[2023-09-15 17:06] LABS: anti MPO AB < 0.2 units (0.0-0.9); anti pr3 < 0.2 units (0.0-0.9); c anca <1:20 titer (Neg:<1:20); p anca <1:20 titer (Neg:<1:20)
== END 2023-09-15 12:30 | disposition home or self-care (01) | DRG 674 ==
LOC: ER 13:29 → MEDI 19:19 → MEDJ 19:19
PROVIDERS: General Practice; Internal Medicine; Internal Medicine Hematology & Oncology; Internal Medicine Infectious Disease; Internal Medicine Nephrology; Nurse Practitioner Family; ADMIT Internal Medicine; ATTEND Internal Medicine
PROC: BT4JZZZ Ultrasonography of Kidneys and Bladder (ICD-10-PCS; 2023-08-12)
PROC: 30243N1 Transfusion of Nonautologous Red Blood Cells into Central Vein, Percutaneous Approach (ICD-10-PCS; 2023-08-12)
PROC: BW21ZZZ Computerized Tomography (CT Scan) of Abdomen and Pelvis (ICD-10-PCS; 2023-08-13)
PROC: BW24ZZZ Computerized Tomography (CT Scan) of Chest and Abdomen (ICD-10-PCS; 2023-08-13)
PROC: 02HV33Z Insertion of Infusion Device into Superior Vena Cava, Percutaneous Approach (ICD-10-PCS; 2023-08-13)
PROC: 5A1D70Z Performance of Urinary Filtration, Intermittent, Less than 6 Hours Per Day (ICD-10-PCS; principal; 2023-08-14)
PROC: 0JHD3XZ Insertion of Tunneled Vascular Access Device into Right Upper Arm Subcutaneous Tissue and Fascia, Percutaneous Approach (ICD-10-PCS; 2023-08-14)
PROC: 5A1D70Z Performance of Urinary Filtration, Intermittent, Less than 6 Hours Per Day (ICD-10-PCS; 2023-08-17)
PROC: 5A1D70Z Performance of Urinary Filtration, Intermittent, Less than 6 Hours Per Day (ICD-10-PCS; 2023-08-19)
PROC: 5A1D70Z Performance of Urinary Filtration, Intermittent, Less than 6 Hours Per Day (ICD-10-PCS; 2023-08-21)
PROC: 5A1D70Z Performance of Urinary Filtration, Intermittent, Less than 6 Hours Per Day (ICD-10-PCS; 2023-08-24)
PROC: 5A1D70Z Performance of Urinary Filtration, Intermittent, Less than 6 Hours Per Day (ICD-10-PCS; 2023-08-25)
PROC: 5A1D70Z Performance of Urinary Filtration, Intermittent, Less than 6 Hours Per Day (ICD-10-PCS; 2023-08-27)
PROC: B54BZZZ Ultrasonography of Right Lower Extremity Veins (ICD-10-PCS; 2023-08-28)
PROC: 5A1D70Z Performance of Urinary Filtration, Intermittent, Less than 6 Hours Per Day (ICD-10-PCS; 2023-08-29)
PROC: 5A1D70Z Performance of Urinary Filtration, Intermittent, Less than 6 Hours Per Day (ICD-10-PCS; 2023-09-03)
PROC: 5A1D70Z Performance of Urinary Filtration, Intermittent, Less than 6 Hours Per Day (ICD-10-PCS; 2023-09-05)
PROC: 5A1D70Z Performance of Urinary Filtration, Intermittent, Less than 6 Hours Per Day (ICD-10-PCS; 2023-09-07)
PROC: BW21YZZ Computerized Tomography (CT Scan) of Abdomen and Pelvis using Other Contrast (ICD-10-PCS; 2023-09-08)
PROC: BW24ZZZ Computerized Tomography (CT Scan) of Chest and Abdomen (ICD-10-PCS; 2023-09-08)
PROC: B24BYZZ Ultrasonography of Heart with Aorta using Other Contrast (ICD-10-PCS; 2023-09-08)
PROC: 5A1D70Z Performance of Urinary Filtration, Intermittent, Less than 6 Hours Per Day (ICD-10-PCS; 2023-09-09)
PROC: 05HM33Z Insertion of Infusion Device into Right Internal Jugular Vein, Percutaneous Approach (ICD-10-PCS; 2023-09-11)
PROC: 5A1D70Z Performance of Urinary Filtration, Intermittent, Less than 6 Hours Per Day (ICD-10-PCS; 2023-09-14)
DX: N17.9 Acute kidney failure, unspecified (principal); D62 Acute posthemorrhagic anemia; I82.4Z1 Acute embolism and thrombosis of unspecified deep veins of right distal lower extremity; K92.2 Gastrointestinal hemorrhage, unspecified; N39.0 Urinary tract infection, site not specified; N20.0 Calculus of kidney; N18.9 Chronic kidney disease, unspecified; I27.20 Pulmonary hypertension, unspecified; D72.10 Eosinophilia, unspecified; D63.1 Anemia in chronic kidney disease; F43.23 Adjustment disorder with mixed anxiety and depressed mood; N18.6 End stage renal disease; Z99.2 Dependence on renal dialysis

== ENCOUNTER 2024-01-09 16:51 | Emergency (ER) | payer OTHER ==
[~2024-01-09] VITALS: Ht 157.5 cm; Wt 55.8 kg
[~2024-01-09 16:51] MED LIST changes: +CALPHRON667 MG PO; +FOLIVANE-PLUS1 EACH; +METAXALONE400 MG PO; +METHIMAZOLE10 MG; +METHIMAZOLE10 MG PO; +NEURIN SL SL; +PROMETHAZINE HC25 M1 PO; +PROTONIX40 MG; +TAPAZOLE5 MG; +TOPROL XL50 M1; +VASOTEC10 MG; +[UNRECOGNIZED DRUG - OTHER] PO
[2024-01-09 18:48] LABS: MEAN CELL VOLUME 96.5 fL (80.00-100.00); MEAN CORPUSCULAR HGB CONC 34.3 g/dl (32.0-36.0); PLATELET COUNT 286 K/uL (150-450); RED BLOOD COUNT 2.59 M/uL (4.00-6.00)
[2024-01-09 18:58] LABS: HEMOGLOBIN 8.6 g/dL (12.0-15.00); MEAN CORPUSCULAR HEMOGLOBIN 33.2 pg (27.00-32.0)
[2024-01-09 19:05] LABS: URINE APPEARANCE Cloudy; URINE BILIRRUBIN Negative (NEGATIVE); URINE BLOOD Trace; URINE COLOR Yellow; URINE LEUKOCYTE Moderate; URINE NITRATE Negative; URINE UROBILINOGEN 0.2 E.U./dl
[2024-01-09 19:11] LABS: URINE BACTERIA 2969.8 uL (0.0-1933); URINE EPITHELIAL CELLS 41.1 uL (0.0-38.8); URINE RBC 26.7 uL (0.0-20.8); URINE WBC 305.3 uL (0.0-23.2)
[2024-01-09 19:24] LABS: INR 1.01; PARTIAL THROMBOPLASTIN TIME 26.3 SECONDS (22.0-34.0); PROTHROMBIN TIME 10.6 SECONDS (9.0-11.5)
[2024-01-09 19:34] LABS: ALBUMIN 2.4 gm/dL (3.4-5.0); BILIRUBIN TOTAL 0.29 mg/dL (0.3-1.2); CALCIUM 9.2 mg/dL (8.5-10.1); GFR 10.02; GLOBULINA 4.7 G/DL (2.4-3.5); POTASSIUM 3.79 mEq/L (3.5-5.1); TOTAL PROTEIN 7.1 gm/dL (6.4-8.2)
[2024-01-09 19:37] LABS: CREATININE SERUM 4.48 mg/dL (0.55-1.02)
[2024-01-09 20:06] LABS: URINE GLUCOSE 100 MG/DL (NEGATIVE); URINE PROTEIN 300 (NEGATIVE)
[2024-01-09 20:07] LABS: URINE CRYSTALS NEGATIVE /HPF
[2024-01-09 20:08] LABS: URINE MUCUS NEGATIVE; URINE YEAST NEGATIVE /hpf
[2024-01-09] MEDS ORDERED: LEVOFLOXACIN250 MG PO (21:47)
== END 2024-01-09 22:02 ==
LOC: ER 16:51
PROVIDERS: Nurse Practitioner Family
DX: D64.9 Anemia, unspecified (principal); N18.6 End stage renal disease; Z99.2 Dependence on renal dialysis; E03.9 Hypothyroidism, unspecified; Z20.822 Contact with and (suspected) exposure to COVID-19; N39.0 Urinary tract infection, site not specified

== ENCOUNTER 2024-01-23 19:42 | Inpatient (IN) | payer OTHER ==
[~2024-01-23] VITALS: Ht 157.5 cm; Wt 47.2 kg
[~2024-01-23 19:42] MED LIST changes: +LEVOFLOXACIN250 MG PO
--- NOTE | 2024-01-23 19:56 | NUR ---
SE RECIBE PTEW ALERTA Y ORIENTADA X3 LA MISMA REFIERE QUE LA LLAMARON DEL CENTRO DE DIALISIS FRESENIUS EN DONALDEY POR HEMOGLOBINA EN 7 Y REFIERE QUE REESE DOCTOR LA SHARON A KEKE DE EMERGENCIAS.
--- NOTE | 2024-01-23 20:44 | NUR ---
SE EDUCA A PTE SOBRE TX MEDICO, SE KHAI MUESTRAS DE LABORATORIO UTILIZANDO MEDIDAS ASEPTICAS. SE COLOCA H/L RASHID DE EDEMA.
[2024-01-23 21:11] LABS: MEAN CORPUSCULAR HGB CONC 35.3 g/dl (32.0-36.0); PLATELET COUNT 243 K/uL (150-450); RED BLOOD COUNT 2.21 M/uL (4.00-6.00); RED CELL DISTRIBUTION WIDTH 14.3 % (11.5-14.5)
[2024-01-23 21:12] LABS: MEAN CORPUSCULAR HEMOGLOBIN 34.3 pg (27.00-32.0)
[2024-01-23 21:13] LABS: HEMATOCRIT 21.4 % (36.0-45.00); HEMOGLOBIN 7.6 g/dL (12.0-15.00)
--- NOTE | 2024-01-23 21:47 | NUR ---
SE REQUIZAN 2 UNIDADES DE PRBC FRACCIONADAS PARA TRANSFUNDIR JENNIFER ORDEN MEDICA. FAMILIAR DE PTE FIRMA CONSENTIMIENTO Y SE COLOCA EN RECORD. SE KHAI MTUBOS PILOTOS UTILIZANDO MEDIDAS ASEPTICAS. SE LLEVAN TUBOS PILOTOS A LABORATORIO.
[2024-01-23 21:49] LABS: URINE APPEARANCE Turbid; URINE BILIRRUBIN Negative (NEGATIVE); URINE BLOOD Trace; URINE COLOR Yellow; URINE KETONE Trace (NEGATIVE); URINE LEUKOCYTE Large; URINE NITRATE Negative; URINE PROTEIN >=1000 (NEGATIVE); URINE UROBILINOGEN 0.2 E.U./dl
[2024-01-23 21:52] LABS: URINE CAST 5.49 uL (0.0-1.40); URINE EPITHELIAL CELLS 51.6 uL (0.0-38.8); URINE RBC 63.2 uL (0.0-20.8); URINE WBC 468.9 uL (0.0-23.2)
[2024-01-23 22:03] LABS: CALCIUM 9.1 mg/dL (8.5-10.1); GFR 8.53; POTASSIUM 3.36 mEq/L (3.5-5.1)
[2024-01-23 22:11] LABS: CREATININE SERUM 5.15 mg/dL (0.55-1.02)
[2024-01-23 22:48] LABS: URINE GLUCOSE 250 MG/DL (NEGATIVE)
[2024-01-23 22:50] LABS: URINE YEAST NEGATIVE /hpf
[2024-01-23] MEDS ORDERED: ACETAMINOPHEN 500 MG GEL..CAP PO PRN (23:00)
[2024-01-23] MEDS ORDERED: CEFTRIAXONE SODIUM 1,000 MG VIAL IV SCH (23:01)
[2024-01-23] MEDS ORDERED: ONDANSETRON HCL 4 MG in 0.9 % SODIUM CHLORIDE 50 ML IV PRN (23:15)
[2024-01-23] MEDS ORDERED: CEFTRIAXONE SODIUM 1,000 MG VIAL ONE (23:57)
[2024-01-24 08:53] LABS: MEAN CELL VOLUME 96.4 fL (80.00-100.00); MEAN CORPUSCULAR HGB CONC 34.9 g/dl (32.0-36.0); PLATELET COUNT 221 K/uL (150-450); RED BLOOD COUNT 2.01 M/uL (4.00-6.00); RED CELL DISTRIBUTION WIDTH 14.4 % (11.5-14.5)
[2024-01-24 08:56] LABS: ERYTHROCYTE SEDIMENTATION RATE 99 mm/hr
[2024-01-24 08:59] LABS: MEAN CORPUSCULAR HEMOGLOBIN 33.8 pg (27.00-32.0)
[2024-01-24 09:00] LABS: HEMATOCRIT 19.4 % (36.0-45.00)
[2024-01-24] MEDS ORDERED: PATIENTS OWN MEDICATION (MEDICAMENTO EN PISO) PO SCH (09:00)
[2024-01-24] MEDS ORDERED: FOLIC ACID 1 MG TABLET PO SCH (09:00)
[2024-01-24] MEDS ORDERED: PREDNISONE 5 MG TABLET PO SCH (09:00)
[2024-01-24] MEDS ORDERED: METHIMAZOLE 10 MG TABLET PO SCH ×2 (09:00→11:00)
[2024-01-24] MEDS ORDERED: FAMOTIDINE/PF 20 MG in 0.9 % SODIUM CHLORIDE 8 ML IV PUSH SCH (09:00)
[2024-01-24 09:08] LABS: INR 1.06; PARTIAL THROMBOPLASTIN TIME 26.9 SECONDS (22.0-34.0); PROTHROMBIN TIME 11.1 SECONDS (9.0-11.5)
[2024-01-24 09:11] LABS: HEMOGLOBIN 6.8 g/dL (12.0-15.00)
[2024-01-24 09:26] LABS: ALBUMIN 2.2 gm/dL (3.4-5.0); ALKALINE PHOSPHATASE 91 U/L (50-136); ALT/SGPT 12 U/L (12-78); ANION GAP 11 (10.0-20.0); AST/SGOT 14 U/L (15-37); BILIRUBIN TOTAL 0.79 mg/dL (0.3-1.2); BILIRUBIN,CONJUGATED < 0.10 mg/dL (0.0-0.2); BILIRUBIN,UNCONJUGATED 0.69 mg/dL (0.0-0.6); BLOOD UREA NITROGEN 49 mg/dL (7-18); CALCIUM 8.7 mg/dL (8.5-10.1); CARBON DIOXIDE 31 mEq/L (21-32); CHLORIDE 101 mmol/L (98-107); CHOL HDL RATIO 2.6 (0-5.0); CHOLESTEROL 110 mg/dL (0-200); GLOBULINA 4.2 G/DL (2.4-3.5); GLUCOSE FASTING 75 mg/dL (65-100); HDL 42 mg/dl (40-60); LDL 42 mg/dl (0-130); OSMOLALITY SERUM 289 MOSM/KG (275-295); SODIUM 139 mmol/L (136-145); TOTAL PROTEIN 6.4 gm/dL (6.4-8.2); TRIGLYCERIDES 132 mg/dL (0-150); VLDL 26 (0-39)
[2024-01-24 09:37] LABS: BUN CREA RATIO 8 (7.0-25.0); C-REACTIVE PROTEIN 7.51 MG/DL (0.00-0.29); GFR 7.44
[2024-01-24] MEDS ORDERED: HEPARIN SODIUM,PORCINE 5,000 UNITS/ML VIAL IV NR (14:45)
[2024-01-24 22:06] LABS: MEAN CELL VOLUME 91.2 fL (80.00-100.00); MEAN CORPUSCULAR HGB CONC 34.4 g/dl (32.0-36.0); PLATELET COUNT 214 K/uL (150-450); RED BLOOD COUNT 3.07 M/uL (4.00-6.00); RED CELL DISTRIBUTION WIDTH 15.5 % (11.5-14.5)
[2024-01-24 22:08] LABS: MEAN CORPUSCULAR HEMOGLOBIN 31.5 pg (27.00-32.0)
[2024-01-24 22:09] LABS: HEMOGLOBIN 9.7 g/dL (12.0-15.00)
[2024-01-25] MEDS ORDERED: EPOETIN ALFA-EPBX 10,000 UNIT/ML VIAL (Retacrit) SUBCUTANEO SCH (17:00)
== END 2024-01-25 17:00 | disposition home or self-care (01) | DRG 811 ==
LOC: ER 19:43 → SEC-K 23:46 → MEDJ 01-24 00:59
PROVIDERS: General Practice; ADMIT Internal Medicine; ATTEND Internal Medicine
PROC: 30233N1 Transfusion of Nonautologous Red Blood Cells into Peripheral Vein, Percutaneous Approach (ICD-10-PCS; principal; 2024-01-24)
DX: D64.89 Other specified anemias (principal); N18.6 End stage renal disease; Z99.2 Dependence on renal dialysis

== ENCOUNTER 2024-03-20 06:44 | Emergency (ER) | payer OTHER ==
[~2024-03-20] VITALS: Ht 157.5 cm; Wt 45.4 kg
[2024-03-20] MEDS ORDERED: RAYOS5 MG PO (07:19)
[2024-03-20] MEDS ORDERED: METHIMAZOLE10 MG PO (07:20)
[2024-03-20] MEDS ORDERED: FAMOTIDINE/PF 20 MG in 0.9 % SODIUM CHLORIDE 8 ML IV PUSH STA (07:31)
[2024-03-20] MEDS ORDERED: ONDANSETRON HCL 2 MG/ML VIAL IV ONE (07:45)
[2024-03-20] MEDS ORDERED: KETOROLAC TROMETHAMINE 15 MG VIAL IV ONE (07:45)
[2024-03-20 07:58] LABS: HEMATOCRIT 30.8 % (36.0-45.00); HEMOGLOBIN 10.2 g/dL (12.0-15.00); MEAN CELL VOLUME 91.9 fL (80.00-100.00); MEAN CORPUSCULAR HEMOGLOBIN 30.4 pg (27.00-32.0); MEAN CORPUSCULAR HGB CONC 33.1 g/dl (32.0-36.0); PLATELET COUNT 268 K/uL (150-450); RED BLOOD COUNT 3.35 M/uL (4.00-6.00); RED CELL DISTRIBUTION WIDTH 15.9 % (11.5-14.5)
[2024-03-20 08:41] LABS: ALBUMIN 2.5 gm/dL (3.4-5.0); BILIRUBIN TOTAL 0.45 mg/dL (0.3-1.2); CALCIUM 8.8 mg/dL (8.5-10.1); CREATININE SERUM 2.21 mg/dL (0.55-1.02); GFR 22.65; GLOBULINA 5.6 G/DL (2.4-3.5); POTASSIUM 3.09 mEq/L (3.5-5.1); TOTAL PROTEIN 8.1 gm/dL (6.4-8.2)
[2024-03-20] MEDS ORDERED: FAMOTIDINE/PF 20 MG/2 ML VIAL IV ONE (09:15)
[2024-03-20] MEDS ORDERED: KETOROLAC TROMETHAMINE 60 MG VIAL IM ONE (09:15)
== END 2024-03-20 09:52 | disposition home or self-care (01) ==
LOC: ER 06:45
PROVIDERS: General Practice
DX: R11.2 Nausea with vomiting, unspecified (principal)
CPT/HCPCS: 36415; 96365; 99283; J1885; J3490

== ENCOUNTER 2024-04-02 19:56 | Inpatient (IN) | payer OTHER ==
[~2024-04-02] VITALS: Ht 157.5 cm; Wt 47.2 kg
[~2024-04-02 19:56] MED LIST changes: +RAYOS5 MG PO
--- NOTE | 2024-04-02 20:02 | NUR ---
SE RECIBE PTE FEMENINA DE 58 ANOS AAOX3 QUIEN REFIER EDOLOR ABDOMINAL INTENSO. SE OBSERBA CUADRANTE INFERIOR IZQ INFLAMADO EN AREA DONDE SE OBSERBA OSTOMIA. AREA DURA A PALPACION. PTE INDICA TENER HERNIA EN ESTA AREA. SE MONITOREAN S/V Y SE UBICA EN CAMA 6. PTE ANADA SER PTE DE DIALYSIS.
--- NOTE | 2024-04-02 20:23 | NUR ---
PTE EVALAUDO POR MD ZALDIVAR ORDENA TX MED A PTE SE EDUCAA PTE SOBRE EL MISMO Y PTE REFIERE ENTDER. SE LELVA ACBOP ORDENES BAJO MEDIDAS ACEPTICAS. PT EPEND A RESULTADOS DE LABS Y REALZIACION DE CT.
[2024-04-02 20:42] LABS: HEMATOCRIT 31.1 % (36.0-45.00); MEAN CORPUSCULAR HEMOGLOBIN 29.9 pg (27.00-32.0); MEAN CORPUSCULAR HGB CONC 32.1 g/dl (32.0-36.0); PLATELET COUNT 272 K/uL (150-450); RED BLOOD COUNT 3.34 M/uL (4.00-6.00); RED CELL DISTRIBUTION WIDTH 15.7 % (11.5-14.5)
[2024-04-02] MEDS ORDERED: ONDANSETRON HCL 2 MG/ML VIAL IV ONE (21:15)
[2024-04-02] MEDS ORDERED: 0.9 % SODIUM CHLORIDE 1,000 ML IV ONE (21:15)
[2024-04-02 21:28] LABS: ALBUMIN 2.5 gm/dL (3.4-5.0); BILIRUBIN TOTAL 0.41 mg/dL (0.3-1.2); GFR 9.72; GLOBULINA 5.3 G/DL (2.4-3.5); POTASSIUM 4.39 mEq/L (3.5-5.1); TOTAL PROTEIN 7.8 gm/dL (6.4-8.2)
[2024-04-02 21:37] LABS: CREATININE SERUM 4.6 mg/dL (0.55-1.02)
--- NOTE | 2024-04-02 22:30 | NUR ---
SE INSERTA TUBO NASOGASTRICO USANDO MEDIDAS ASEPTICAS Y ESTRILES EN FAITH DERECHO,PTE TOLERANDO AL MOMENTO.PTE MANEJADO POR LEMUEL IZQUIERDO.
[2024-04-02 22:54] LABS: ABG PH 7.546 (7.35-7.45); ABG PO2 79.3 mmHg (80-100); ABG pCO2 41.2 mmHg (35-45); BASE EXCESS 11.3 mmol/l; BICARBONATE 34.9 mmol/l (23-25); Tco2 36.2 mmol/l; allen test SATISFACTORY; o2 21 %; puncture site RADIAL RIGHT
[2024-04-02 22:55] LABS: SaO2 97.4 %
[2024-04-02] MEDS ORDERED: MORPHINE SULFATE 2 MG/ML CARTRIDGE IV ONE (23:45)
[2024-04-02] MEDS ORDERED: ONDANSETRON HCL 4 MG in 0.9 % SODIUM CHLORIDE 50 ML IV PRN (23:45)
[2024-04-02] MEDS ORDERED: MORPHINE SULFATE 4 MG/ML CARTRIDGE IV PRN (23:45)
[2024-04-02] MEDS ORDERED: PIPERACILLIN/TAZOBACTAM SODIUM 2.25 GM in DEXTROSE 5 % IN WATER 50 ML IV SCH (23:56)
[2024-04-03] MEDS ORDERED: 0.9 % SODIUM CHLORIDE 1,000 ML IV SCH (00:15)
[2024-04-03 01:27] VITALS: BP 176/93; O2SAT 94
[2024-04-03 02:57] VITALS: BP 150/79; O2SAT 98
[2024-04-03] MEDS ORDERED: MORPHINE SULFATE 4 MG/ML CARTRIDGE IV PRN (04:55)
[2024-04-03 08:20] LABS: PH,URINE 8.5 (5.0-8.0); URINE APPEARANCE Clear; URINE BILIRRUBIN Negative (NEGATIVE); URINE BLOOD Small; URINE COLOR Yellow; URINE LEUKOCYTE Negative; URINE NITRATE Negative; URINE PROTEIN >=1000 (NEGATIVE); URINE UROBILINOGEN 0.2 E.U./dl
[2024-04-03 08:22] LABS: URINE BACTERIA 17.6 uL (0.0-1933); URINE EPITHELIAL CELLS 4.7 uL (0.0-38.8); URINE RBC 76.9 uL (0.0-20.8)
[2024-04-03 08:28] LABS: MAGNESIUM 2.3 mg/dL (1.8-2.4); PHOSPHOROUS 5.5 mg/dL (2.5-4.9)
[2024-04-03 08:39] LABS: URINE GLUCOSE 250 MG/DL (NEGATIVE); URINE KETONE 40 (NEGATIVE)
[2024-04-03 08:47] LABS: INR 1.05; PARTIAL THROMBOPLASTIN TIME 25.8 SECONDS (22.0-34.0); PROTHROMBIN TIME 11.4 SECONDS (9.0-11.5)
[2024-04-03] MEDS ORDERED: PREDNISONE 5 MG TABLET PO SCH (09:00)
[2024-04-03] MEDS ORDERED: FAMOTIDINE/PF 20 MG in 0.9 % SODIUM CHLORIDE 8 ML IV PUSH SCH (09:00)
[2024-04-03 09:06] VITALS: BP 157/81; O2SAT 96
[2024-04-03 16:00] VITALS: BP 147/93; O2SAT 93
[2024-04-04 00:43] VITALS: BP 151/83; O2SAT 98
[2024-04-04 08:23] VITALS: BP 140/80; O2SAT 97
[2024-04-04 15:41] LABS: ALBUMIN 2.4 gm/dL (3.4-5.0); CALCIUM 8.9 mg/dL (8.5-10.1); GFR 6.87; MAGNESIUM 2.4 mg/dL (1.8-2.4); PHOSPHOROUS 7.8 mg/dL (2.5-4.9); POTASSIUM 5.58 mEq/L (3.5-5.1)
[2024-04-04 15:46] LABS: CREATININE SERUM 6.21 mg/dL (0.55-1.02)
[2024-04-04 15:51] VITALS: BP 150/69
[2024-04-04] MEDS ORDERED: HEPARIN SODIUM,PORCINE 5,000 UNITS/ML VIAL IV NR (16:45)
[2024-04-05 01:14] VITALS: BP 177/93; O2SAT 97
[2024-04-05 08:27] VITALS: BP 157/88
[2024-04-05 16:41] VITALS: BP 162/88
[2024-04-06 01:30] VITALS: BP 155/84; O2SAT 99
[2024-04-06 08:47] LABS: HEMATOCRIT 26.3 % (36.0-45.00); HEMOGLOBIN 8.6 g/dL (12.0-15.00); MEAN CELL VOLUME 93.5 fL (80.00-100.00); MEAN CORPUSCULAR HEMOGLOBIN 30.6 pg (27.00-32.0); MEAN CORPUSCULAR HGB CONC 32.8 g/dl (32.0-36.0); PLATELET COUNT 185 K/uL (150-450); RED BLOOD COUNT 2.81 M/uL (4.00-6.00); RED CELL DISTRIBUTION WIDTH 16.1 % (11.5-14.5)
[2024-04-06 09:02] VITALS: BP 160/88; O2SAT 98
[2024-04-06 09:25] LABS: ALBUMIN 2.1 gm/dL (3.4-5.0); BILIRUBIN TOTAL 0.45 mg/dL (0.3-1.2); CALCIUM 8.3 mg/dL (8.5-10.1); GFR 10.34; GLOBULINA 4.4 G/DL (2.4-3.5); MAGNESIUM 2.1 mg/dL (1.8-2.4); PHOSPHOROUS 6.3 mg/dL (2.5-4.9); POTASSIUM 4.27 mEq/L (3.5-5.1); TOTAL PROTEIN 6.5 gm/dL (6.4-8.2)
[2024-04-06 09:43] LABS: CREATININE SERUM 4.36 mg/dL (0.55-1.02)
[2024-04-06] MEDS ORDERED: FUROsemide 20 MG/2 ML VIAL IV SCH (16:00)
[2024-04-06 18:01] VITALS: BP 139/85
[2024-04-06 18:03] VITALS: BP 139/85
[2024-04-07 03:17] VITALS: BP 156/83; O2SAT 98
[2024-04-07 08:42] VITALS: BP 1601/85
[2024-04-07 18:16] VITALS: BP 161/90; O2SAT 98
[2024-04-07] MEDS ORDERED: METHIMAZOLE 10 MG TABLET PO SCH (19:24)
[2024-04-07] MEDS ORDERED: METOPROLOL SUCCINATE 50 MG TAB.SR.24H PO SCH (23:36)
[2024-04-08 01:37] VITALS: BP 158/94; O2SAT 97
[2024-04-08 08:44] VITALS: BP 165/86
[2024-04-08 16:15] VITALS: BP 156/94
[2024-04-08 21:19] LABS: HEMATOCRIT 33.4 % (36.0-45.00); HEMOGLOBIN 11.2 g/dL (12.0-15.00); MEAN CELL VOLUME 92.8 fL (80.00-100.00); MEAN CORPUSCULAR HEMOGLOBIN 31.1 pg (27.00-32.0); MEAN CORPUSCULAR HGB CONC 33.5 g/dl (32.0-36.0); PLATELET COUNT 152 K/uL (150-450); RED CELL DISTRIBUTION WIDTH 15.8 % (11.5-14.5)
[2024-04-08 21:55] LABS: BILIRUBIN TOTAL 0.47 mg/dL (0.3-1.2); CALCIUM 8.3 mg/dL (8.5-10.1); GFR 9.25; GLOBULINA 4.7 G/DL (2.4-3.5); MAGNESIUM 2.2 mg/dL (1.8-2.4); POTASSIUM 5.36 mEq/L (3.5-5.1); TOTAL PROTEIN 6.7 gm/dL (6.4-8.2)
[2024-04-08 21:58] LABS: CREATININE SERUM 4.8 mg/dL (0.55-1.02)
[2024-04-09 01:40] VITALS: BP 174/105; O2SAT 98
[2024-04-09 04:51] VITALS: BP 187/96
[2024-04-09 08:59] VITALS: BP 173/89; O2SAT 99
[2024-04-10] MEDS ORDERED: LEVOFLOXACIN250 MG PO (00:04)
[2024-04-10] MEDS ORDERED: FAMOTIDINE20 MG PO (00:04)
== END 2024-04-09 09:37 | disposition home or self-care (01) | DRG 393 ==
LOC: ER 19:56 → MEDI 23:57 → MEDJ 04-05 11:12
PROVIDERS: General Practice; Internal Medicine; ADMIT Internal Medicine; ATTEND Internal Medicine
PROC: 0D9670Z Drainage of Stomach with Drainage Device, Via Natural or Artificial Opening (ICD-10-PCS; principal; 2024-04-02)
PROC: BW21ZZZ Computerized Tomography (CT Scan) of Abdomen and Pelvis (ICD-10-PCS; 2024-04-02)
PROC: 5A1D70Z Performance of Urinary Filtration, Intermittent, Less than 6 Hours Per Day (ICD-10-PCS; 2024-04-04)
PROC: 5A1D70Z Performance of Urinary Filtration, Intermittent, Less than 6 Hours Per Day (ICD-10-PCS; 2024-04-06)
PROC: 30233N1 Transfusion of Nonautologous Red Blood Cells into Peripheral Vein, Percutaneous Approach (ICD-10-PCS; 2024-04-07)
DX: K43.3 Parastomal hernia with obstruction, without gangrene (principal); N18.6 End stage renal disease; I12.0 Hypertensive chronic kidney disease with stage 5 chronic kidney disease or end stage renal disease; D64.89 Other specified anemias; D63.1 Anemia in chronic kidney disease; E03.9 Hypothyroidism, unspecified; Z99.2 Dependence on renal dialysis; Z93.3 Colostomy status

== ENCOUNTER 2024-04-09 23:40 | Inpatient (IN) | payer OTHER ==
[~2024-04-09] VITALS: Ht 157.5 cm; Wt 47.2 kg
[2024-04-10] MEDS ORDERED: LEVOFLOXACIN250 MG PO (00:04)
[2024-04-10] MEDS ORDERED: FAMOTIDINE20 MG PO (00:04)
--- NOTE | 2024-04-10 00:04 | NUR ---
SE RECIBE A PTE EN AMBULANCIA, PTE ALERTA Y ORIENTADA X3. PTE REFIRE A PRESENTADO DOLOR EN FLANKO LT Y A PRESENTADO VOMITOS X4. PTE TIENE COLOSTOMIA EN LADO LT Y SE OBSERVA AREA DISTENDIDA. JITENDRA REFIERE TIENE BELGICA HERNIA EN AREA. PTE FUE MINAL DE [facility], ES PTE DE DR. MEDEL. SE OBSERVA A PTE CON PATRICIA EN LADO RT, CON BENDAJE LIMPIO Y SECO.
[2024-04-10] MEDS ORDERED: HYOSCYAMINE SULFATE 0.125 MG TAB.SUBL SL STA (02:47)
[2024-04-10] MEDS ORDERED: FAMOtidine 10 MG/ML (4ML VIAL) IV PUSH STA (02:48)
[2024-04-10] MEDS ORDERED: ONDANSETRON HCL 2 MG/ML VIAL IV STA (02:48)
[2024-04-10] MEDS ORDERED: 0.9 % SODIUM CHLORIDE 500 ML IV STA (02:49)
[2024-04-10] MEDS ORDERED: MEPERIDINE HCL/PF 25 MG/ML VIAL IM STA (03:05)
--- NOTE | 2024-04-10 03:05 | NUR ---
SE ORIENTA PTE SOBRE TX MEDICO EL CUAL REFIERE ENTENDER.SE LE EXTRAEN MUESTRAS BAJO MEDIDAS ASEPTICAS,SE CANALIZA Y SE ADMINISTRAN MEDICAMENTOS JENNIFER ORDEN MEDICA.SE NOTIFIVCA CT PENDIENTE.
[2024-04-10] MEDS ORDERED: PROMETHAZINE HCL 25 MG/ML AMPUL IM STA (03:06)
[2024-04-10 03:44] LABS: HEMATOCRIT 38.8 % (36.0-45.00); MEAN CELL VOLUME 93.8 fL (80.00-100.00); MEAN CORPUSCULAR HEMOGLOBIN 31.4 pg (27.00-32.0); MEAN CORPUSCULAR HGB CONC 33.5 g/dl (32.0-36.0); PLATELET COUNT 179 K/uL (150-450); RED BLOOD COUNT 4.14 M/uL (4.00-6.00); RED CELL DISTRIBUTION WIDTH 15.5 % (11.5-14.5)
[2024-04-10 03:51] LABS: INR 1.17; PARTIAL THROMBOPLASTIN TIME 27.4 SECONDS (22.0-34.0); PROTHROMBIN TIME 12.6 SECONDS (9.0-11.5)
[2024-04-10 03:55] LABS: ALBUMIN 2.3 gm/dL (3.4-5.0); BILIRUBIN TOTAL 0.63 mg/dL (0.3-1.2); CALCIUM 8.6 mg/dL (8.5-10.1); CREATININE SERUM 2.67 mg/dL (0.55-1.02); GFR 18.21; GLOBULINA 5.9 G/DL (2.4-3.5); POTASSIUM 3.31 mEq/L (3.5-5.1); TOTAL PROTEIN 8.2 gm/dL (6.4-8.2)
[2024-04-10 05:41] LABS: URINE APPEARANCE Clear; URINE BACTERIA 151.1 uL (0.0-1933); URINE BILIRRUBIN Negative (NEGATIVE); URINE BLOOD Small; URINE COLOR Yellow; URINE EPITHELIAL CELLS 20.3 uL (0.0-38.8); URINE KETONE 15 (NEGATIVE); URINE LEUKOCYTE Trace; URINE NITRATE Negative; URINE PROTEIN >=1000 (NEGATIVE); URINE RBC 75.7 uL (0.0-20.8); URINE UROBILINOGEN 0.2 E.U./dl; URINE WBC 59.6 uL (0.0-23.2)
[2024-04-10 05:52] LABS: URINE GLUCOSE 250 MG/DL (NEGATIVE)
--- NOTE | 2024-04-10 08:03 | NUR ---
SE RECIBE PACIENTE FEMINA ALERTA Y ORIENTADA EN TIEMPO, LUGAR Y PERSON A QUIEN SE LE ORIENTA SOBRE CONTINUIDAD DE TRATAMIENTO MEDICO Y REFIERE ENTENDER. SE OBSERVA PACIENTE EN EMELIA CON BARANDAS ELEVADAS Y EN REESE NIVEL MAS BAJO POR PRECAUCION A CAIDAS, PACIENTE PREVIAMENTE CANALIZADA CONV ENOPUNCION PATENTE, RASHID DE EDEMA Y ERITEMA, RECIBIENDO 0.9%NSS BAJANDO A 60ML/HR. PACIENTE CON COLOSTOMIA DEL LADO SUSHMA. PENDIENTE LECTURA DE CT.
[2024-04-10] MEDS ORDERED: ONDANSETRON HCL 2 MG/ML VIAL IV ONE (08:15)
--- NOTE | 2024-04-10 15:47 | NUR ---
SE RECIBE PACIENTE ALERTA Y ORIENTADA X 3 ESFERAS EN CAMA CON BARANDAS ELEVADAS Y AL NIVEL MAS BAJO DEL TURNO ANTERIOR. PRESENTANDO BUEN PATRON RESPIRATORIO.RECIBIENDO IV'S 0.9NSS BAJANDO A 60ML/HR AREA DE VENOPUNCION RASHID DE EDEMA Y ERITEMA. PACIENTE CON COLOSTOMIA. PENDIENTE CONSULTA CON MEDICINA INTERNA . SE BHARAT EN CAMA CON BARANDAS ELEVADAS POR SEGURIDAD Y SE MANTIENE EN OBSERVACION POR CAMBIOS EN CONDICIO MEDICA.
[2024-04-10] MEDS ORDERED: PROMETHAZINE HCL 25 MG/ML AMPUL IM PRN (17:45)
[2024-04-10] MEDS ORDERED: ACETAMINOPHEN 325 MG TABLET PO PRN (17:45)
[2024-04-10] MEDS ORDERED: 0.9 % SODIUM CHLORIDE 1,000 ML IV SCH (17:45)
[2024-04-10] MEDS ORDERED: MEPERIDINE HCL 25 MG/ML AMPUL IM PRN (17:45)
[2024-04-10] MEDS ORDERED: ONDANSETRON HCL 4 MG in 0.9 % SODIUM CHLORIDE 50 ML IV PRN (17:45)
[2024-04-10] MEDS ORDERED: hydrALAZINE HCL 20 MG VIAL IV PRN (18:00)
[2024-04-10] MEDS ORDERED: PANTOPRAZOLE SODIUM 40 MG/VIAL VIAL IV SCH (21:00)
[2024-04-10 21:52] VITALS: BP 179/83
[2024-04-11 01:37] VITALS: BP 160/81; O2SAT 96
[2024-04-11 08:35] VITALS: BP 158/79
[2024-04-11] MEDS ORDERED: METHIMAZOLE 10 MG TABLET PO SCH (09:00)
[2024-04-11] MEDS ORDERED: METOPROLOL SUCCINATE 50 MG TAB.SR.24H PO SCH (09:00)
[2024-04-11] MEDS ORDERED: PREDNISONE 5 MG TABLET PO SCH (09:00)
[2024-04-11 17:07] VITALS: BP 159/87
[2024-04-11 23:50] VITALS: BP 156/90; O2SAT 97
[2024-04-12 05:51] LABS: ALBUMIN 2.1 gm/dL (3.4-5.0); CALCIUM 8.3 mg/dL (8.5-10.1); CREATININE SERUM 2.45 mg/dL (0.55-1.02); GFR 20.11; PHOSPHOROUS 4.6 mg/dL (2.5-4.9); POTASSIUM 3.73 mEq/L (3.5-5.1)
[2024-04-12 08:08] VITALS: BP 157/84
[2024-04-12 18:34] VITALS: BP 160/85; O2SAT 96
== END 2024-04-12 21:39 | disposition home or self-care (01) | DRG 393 ==
LOC: ER 23:40 → MEDI 04-10 17:43 → MEDJ 04-10 21:34
PROVIDERS: Internal Medicine Nephrology; ADMIT Internal Medicine; ATTEND Internal Medicine
PROC: BW21ZZZ Computerized Tomography (CT Scan) of Abdomen and Pelvis (ICD-10-PCS; principal; 2024-04-10)
PROC: 5A1D70Z Performance of Urinary Filtration, Intermittent, Less than 6 Hours Per Day (ICD-10-PCS; 2024-04-11)
DX: K43.3 Parastomal hernia with obstruction, without gangrene (principal); N18.6 End stage renal disease; E87.6 Hypokalemia; Z93.3 Colostomy status; Z99.2 Dependence on renal dialysis

== ENCOUNTER 2024-04-30 20:11 | Inpatient (IN) | payer OTHER ==
[~2024-04-30] VITALS: Ht 157.5 cm; Wt 47.2 kg
[~2024-04-30 20:11] MED LIST changes: +FAMOTIDINE20 MG PO
[2024-04-30] MEDS ORDERED: METOPROLOL SUCC50 MG PO (20:25)
--- NOTE | 2024-04-30 20:25 | NUR ---
SE RECIBE FEMINA ALERTA Y ORIENTADA X3 CUAL REFIERE PRESENTA DOLOR ABD CUADRANTE INFERIOR IZQ DESDE ESTA MANANA. SE KHAI S.V Y SE UBICA.
[2024-04-30] MEDS ORDERED: 0.9 % SODIUM CHLORIDE 1,000 ML IV STA (20:47)
[2024-04-30] MEDS ORDERED: FAMOTIDINE/PF 20 MG/2 ML VIAL IV ONE (21:00)
[2024-04-30] MEDS ORDERED: MEPERIDINE HCL/PF 50 MG/ML VIAL IV ONE (21:00)
[2024-04-30] MEDS ORDERED: ONDANSETRON HCL 2 MG/ML VIAL IV ONE (21:00)
--- NOTE | 2024-04-30 21:01 | NUR ---
SE ORIENTA PTE SOBRE TX A SEGUIR, LA MISMA REFIERE ENTENDER. SE MILLICENT MUESTRA DE LAB, SE CANALIZA Y SE ADMINISTRA MED JENNIFER ORDEN MEDICA
[2024-04-30 21:32] LABS: HEMATOCRIT 27.5 % (36.0-45.00); HEMOGLOBIN 9.5 g/dL (12.0-15.00); MEAN CELL VOLUME 91.1 fL (80.00-100.00); MEAN CORPUSCULAR HEMOGLOBIN 31.4 pg (27.00-32.0); MEAN CORPUSCULAR HGB CONC 34.4 g/dl (32.0-36.0); PLATELET COUNT 219 K/uL (150-450); RED BLOOD COUNT 3.02 M/uL (4.00-6.00); RED CELL DISTRIBUTION WIDTH 14.1 % (11.5-14.5)
[2024-04-30 21:55] LABS: INR 1.1; PARTIAL THROMBOPLASTIN TIME 22.4 SECONDS (22.0-34.0); PROTHROMBIN TIME 11.9 SECONDS (9.0-11.5)
[2024-04-30 22:06] LABS: ALBUMIN 2.1 gm/dL (3.4-5.0); BILIRUBIN TOTAL 0.51 mg/dL (0.3-1.2); GFR 10.68; GLOBULINA 5.2 G/DL (2.4-3.5); POTASSIUM 3.44 mEq/L (3.5-5.1); TOTAL PROTEIN 7.3 gm/dL (6.4-8.2)
[2024-04-30 22:12] LABS: CREATININE SERUM 4.24 mg/dL (0.55-1.02)
--- NOTE | 2024-04-30 23:00 | NUR ---
SE RECIBE PACIENTE DE TURNO ANTERIOR ALERTA Y ORIENTADA EN ELROY LIN ESFERAS; UBICADA EN EMELIA CON BARANDAS ELEVADAS Y A NIVEL MAS BAJO. SE OBSERVA CON BUEN PATRON RESPIRATORIO Y PIEL TIBIA AL TACTO. CANALIZACION EN LT PATENTE, RASHID DE EDEMA O ERITEMA; RECIBIENDO IV FLUIDS. PENDIENTE CT PO.
[2024-05-01] MEDS ORDERED: PROMETHAZINE HCL 50 MG/ML AMPUL IM ONE (02:30)
[2024-05-01] MEDS ORDERED: MEPERIDINE HCL/PF 50 MG/ML VIAL IM STA (08:51)
--- NOTE | 2024-05-01 08:56 | NUR ---
SE RECIBE A PTE DE TURNO ANTERIOR. PTE ALERTA Y ORIENTADA X3, SE OBSERVA VENOPUNCION PATENTE.
--- NOTE | 2024-05-01 15:45 | NUR ---
SE RECIBE PTE ALERTA Y ORIENTADA X3. EN EMELIA BAJA CON BARANDAS ELEVADAS POR SEGURIDAD. CANALIZADA EN LA ANGIO #20 RECIBIENDO IV FLUIDS. PEND CONSULTA CON DR MEDEL
[2024-05-01] MEDS ORDERED: ONDANSETRON HCL 4 MG in 0.9 % SODIUM CHLORIDE 50 ML IV PRN (18:30)
[2024-05-01 19:23] LABS: INR 1.14; PARTIAL THROMBOPLASTIN TIME 25.6 SECONDS (22.0-34.0); PROTHROMBIN TIME 12.3 SECONDS (9.0-11.5)
[2024-05-01] MEDS ORDERED: PIPERACILLIN/TAZOBACTAM SODIUM 2.25 GM in DEXTROSE 5 % IN WATER 50 ML IV SCH (21:00)
[2024-05-01 23:00] VITALS: BP 160/90; O2SAT 95
[2024-05-02 05:08] VITALS: BP 160/85; O2SAT 96
[2024-05-02] MEDS ORDERED: PREDNISONE 5 MG TABLET PO SCH (09:00)
[2024-05-02] MEDS ORDERED: ENOXAPARIN SODIUM 30 MG/0.3 ML SYRINGE SUBCUTANEO SCH (09:00)
[2024-05-02] MEDS ORDERED: FAMOTIDINE/PF 20 MG in 0.9 % SODIUM CHLORIDE 8 ML IV PUSH SCH (09:00)
[2024-05-02] MEDS ORDERED: METOPROLOL SUCCINATE 50 MG TAB.SR.24H PO SCH (09:00)
[2024-05-02 10:25] VITALS: BP 164/62; O2SAT 95
[2024-05-02] MEDS ORDERED: EPOETIN ALFA-EPBX 10,000 UNIT/ML VIAL (Retacrit) SUBCUTANEO NR (11:20)
[2024-05-02 16:54] VITALS: BP 155/84; O2SAT 99
[2024-05-02] MEDS ORDERED: HEPARIN SODIUM,PORCINE 5,000 UNITS/ML VIAL IV SCH (19:55)
[2024-05-03 01:00] VITALS: BP 155/83; O2SAT 95
[2024-05-03] MEDS ORDERED: MEPERIDINE HCL/PF 25 MG/ML VIAL IM PRN (05:00)
[2024-05-03] MEDS ORDERED: PROMETHAZINE HCL 25 MG/ML AMPUL IM PRN (05:00)
[2024-05-03 09:09] VITALS: BP 160/88; O2SAT 96
[2024-05-03] MEDS ORDERED: CHLORHEXIDINE GLUCONATE 120 ML BOTTLE TOP ONE (17:00)
[2024-05-03] MEDS ORDERED: MEPERIDINE HCL 25 MG/ML AMPUL IV ONE (17:55)
[2024-05-03] MEDS ORDERED: MEPERIDINE HCL 25 MG/ML AMPUL IM ONE (18:45)
[2024-05-03] MEDS ORDERED: PROMETHAZINE HCL 25 MG/ML AMPUL IM ONE (18:45)
[2024-05-03 22:37] VITALS: BP 129/79; O2SAT 95
[2024-05-04 01:34] VITALS: BP 140/76; O2SAT 93
[2024-05-04 06:13] LABS: HEMATOCRIT 26.9 % (36.0-45.00); MEAN CELL VOLUME 93.7 fL (80.00-100.00); PLATELET COUNT 194 K/uL (150-450); RED BLOOD COUNT 2.87 M/uL (4.00-6.00); RED CELL DISTRIBUTION WIDTH 14.5 % (11.5-14.5)
[2024-05-04 06:54] LABS: ALBUMIN 1.9 gm/dL (3.4-5.0); CALCIUM 7.9 mg/dL (8.5-10.1); GFR 9.97; MAGNESIUM 2.3 mg/dL (1.8-2.4); POTASSIUM 3.55 mEq/L (3.5-5.1)
[2024-05-04 06:56] LABS: HEMOGLOBIN 8.9 g/dL (12.0-15.00)
[2024-05-04 07:31] LABS: CREATININE SERUM 4.5 mg/dL (0.55-1.02)
[2024-05-04] MEDS ORDERED: EPOETIN ALFA-EPBX 10,000 UNIT/ML VIAL (Retacrit) SUBCUTANEO SCH (09:00)
[2024-05-04 09:28] VITALS: BP 144/82; O2SAT 95
[2024-05-04] MEDS ORDERED: PHENOL 177 ML BOTTLE MM PRN (16:00)
[2024-05-04 17:49] VITALS: BP 150/77
[2024-05-05 02:09] VITALS: BP 146/83; O2SAT 94
[2024-05-05 07:02] LABS: MEAN CELL VOLUME 93.5 fL (80.00-100.00); PLATELET COUNT 169 K/uL (150-450); RED BLOOD COUNT 2.78 M/uL (4.00-6.00); RED CELL DISTRIBUTION WIDTH 14.9 % (11.5-14.5)
[2024-05-05 07:07] LABS: HEMOGLOBIN 8.9 g/dL (12.0-15.00)
[2024-05-05 07:28] LABS: ALBUMIN 1.9 gm/dL (3.4-5.0); BILIRUBIN TOTAL 0.7 mg/dL (0.3-1.2); CALCIUM 8.7 mg/dL (8.5-10.1); CREATININE SERUM 2.38 mg/dL (0.55-1.02); GFR 20.79; GLOBULINA 4.6 G/DL (2.4-3.5); MAGNESIUM 2.1 mg/dL (1.8-2.4); PHOSPHOROUS 4.1 mg/dL (2.5-4.9); POTASSIUM 3.44 mEq/L (3.5-5.1); TOTAL PROTEIN 6.5 gm/dL (6.4-8.2)
[2024-05-05 08:47] VITALS: BP 144/86; BP 152/76; O2SAT 97
[2024-05-05] MEDS ORDERED: MEPERIDINE HCL/PF 25 MG/ML VIAL IM PRN (09:15)
[2024-05-05] MEDS ORDERED: PROMETHAZINE HCL 25 MG/ML AMPUL IM PRN (09:15)
[2024-05-05 19:18] VITALS: BP 135/76
[2024-05-06 02:52] VITALS: BP 132/79
[2024-05-06 09:34] VITALS: BP 130/78; O2SAT 98
[2024-05-06 16:58] VITALS: BP 116/96
[2024-05-07 01:11] VITALS: BP 156/104; O2SAT 97
[2024-05-07 06:42] VITALS: BP 133/81
[2024-05-07 08:59] VITALS: BP 136/82
[2024-05-07 14:02] LABS: HEMATOCRIT 37.7 % (36.0-45.00); HEMOGLOBIN 12.4 g/dL (12.0-15.00); MEAN CORPUSCULAR HEMOGLOBIN 29.3 pg (27.00-32.0); MEAN CORPUSCULAR HGB CONC 32.9 g/dl (32.0-36.0); PLATELET COUNT 175 K/uL (150-450); RED BLOOD COUNT 4.24 M/uL (4.00-6.00); RED CELL DISTRIBUTION WIDTH 17.2 % (11.5-14.5)
[2024-05-07 14:31] LABS: ALBUMIN 1.8 gm/dL (3.4-5.0); BILIRUBIN TOTAL 0.68 mg/dL (0.3-1.2); CALCIUM 8.4 mg/dL (8.5-10.1); CREATININE SERUM 2.59 mg/dL (0.55-1.02); GFR 18.86; GLOBULINA 4.8 G/DL (2.4-3.5); POTASSIUM 3.48 mEq/L (3.5-5.1); TOTAL PROTEIN 6.6 gm/dL (6.4-8.2)
[2024-05-07 17:59] VITALS: BP 117/79
[2024-05-08 01:04] VITALS: BP 124/77; O2SAT 97
[2024-05-08 08:20] VITALS: BP 134/86; O2SAT 97
[2024-05-08 16:00] VITALS: BP 119/74; O2SAT 99
[2024-05-09 01:18] VITALS: BP 123/81; O2SAT 99
[2024-05-09 10:28] VITALS: BP 134/84; O2SAT 97
[2024-05-09 15:30] LABS: HEMATOCRIT 38.5 % (36.0-45.00); HEMOGLOBIN 12.4 g/dL (12.0-15.00); MEAN CELL VOLUME 90.9 fL (80.00-100.00); MEAN CORPUSCULAR HEMOGLOBIN 29.2 pg (27.00-32.0); MEAN CORPUSCULAR HGB CONC 32.1 g/dl (32.0-36.0); PLATELET COUNT 196 K/uL (150-450); RED BLOOD COUNT 4.24 M/uL (4.00-6.00); RED CELL DISTRIBUTION WIDTH 16.9 % (11.5-14.5)
[2024-05-09 16:51] VITALS: BP 135/83; O2SAT 97
== END 2024-05-09 17:06 | disposition home or self-care (01) | DRG 329 ==
LOC: ER 20:11 → MEDJ 05-01 19:35 → MEDI 05-01 19:35 → SEC-K 05-01 21:04 → MEDI 05-02 00:15
PROVIDERS: Emergency Medicine; General Practice; Internal Medicine; Internal Medicine Nephrology; Surgery; ADMIT Internal Medicine; ATTEND Internal Medicine
PROC: 5A1D70Z Performance of Urinary Filtration, Intermittent, Less than 6 Hours Per Day (ICD-10-PCS; 2024-05-02)
PROC: 0WQF0ZZ Repair Abdominal Wall, Open Approach (ICD-10-PCS; 2024-05-03)
PROC: 0D1M0Z4 Bypass Descending Colon to Cutaneous, Open Approach (ICD-10-PCS; principal; 2024-05-03 15:15)
PROC: 30233N1 Transfusion of Nonautologous Red Blood Cells into Peripheral Vein, Percutaneous Approach (ICD-10-PCS; 2024-05-06)
PROC: 5A1D70Z Performance of Urinary Filtration, Intermittent, Less than 6 Hours Per Day (ICD-10-PCS; 2024-05-09)
DX: K43.3 Parastomal hernia with obstruction, without gangrene (principal); N18.6 End stage renal disease; K56.600 Partial intestinal obstruction, unspecified as to cause; N17.9 Acute kidney failure, unspecified; I12.0 Hypertensive chronic kidney disease with stage 5 chronic kidney disease or end stage renal disease; Z99.2 Dependence on renal dialysis; D63.1 Anemia in chronic kidney disease

== ENCOUNTER → 2024-05-23 | Emergency (ER) | payer OTHER ==
[~2024-05-23] MED LIST changes: +METOPROLOL SUCC50 MG PO
== END | disposition left against medical advice (07) ==
LOC: ER 11:06
DX: Z53.21 Procedure and treatment not carried out due to patient leaving prior to being seen by health care provider (principal)

== ENCOUNTER 2024-07-05 19:33 | Emergency (ER) | payer OTHER ==
[~2024-07-05] VITALS: Ht 157.5 cm; Wt 37.6 kg
[2024-07-05 23:36] LABS: HEMATOCRIT 25.4 % (36.0-45.00); MEAN CORPUSCULAR HEMOGLOBIN 30.4 pg (27.00-32.0); MEAN CORPUSCULAR HGB CONC 33.8 g/dl (32.0-36.0); PLATELET COUNT 235 K/uL (150-450); RED BLOOD COUNT 2.82 M/uL (4.00-6.00); RED CELL DISTRIBUTION WIDTH 16.3 % (11.5-14.5)
[2024-07-05 23:46] LABS: HEMOGLOBIN 8.6 g/dL (12.0-15.00)
[2024-07-05 23:49] LABS: INR 1.02; PARTIAL THROMBOPLASTIN TIME 25.7 SECONDS (22.0-34.0); PROTHROMBIN TIME 11.1 SECONDS (9.0-11.5)
[2024-07-05 23:59] LABS: ALBUMIN 1.9 gm/dL (3.4-5.0); BILIRUBIN TOTAL 0.32 mg/dL (0.3-1.2); GLOBULINA 6.1 G/DL (2.4-3.5)
[2024-07-06 00:11] LABS: GFR 6.13
[2024-07-06 00:13] LABS: CREATININE SERUM 6.84 mg/dL (0.55-1.02); POTASSIUM 6.54 mEq/L (3.5-5.1)
== END 2024-07-06 00:39 | disposition home or self-care (01) ==
LOC: ER 19:35
DX: I12.0 Hypertensive chronic kidney disease with stage 5 chronic kidney disease or end stage renal disease (principal); N18.6 End stage renal disease; D63.1 Anemia in chronic kidney disease; E13.22 Other specified diabetes mellitus with diabetic chronic kidney disease; Z99.2 Dependence on renal dialysis

== ENCOUNTER 2024-08-03 22:38 | Inpatient (IN) | payer OTHER ==
[~2024-08-03] VITALS: Ht 157.5 cm; Wt 376.5 kg
[2024-08-03] MEDS ORDERED: CLONAZEPAM0.5 MG PO (22:44)
[2024-08-03] MEDS ORDERED: FUROsemide 40 MG/4 ML VIAL IV STA (23:11)
[2024-08-04 00:08] LABS: MEAN CELL VOLUME 91.6 fL (80.00-100.00); MEAN CORPUSCULAR HGB CONC 32.9 g/dl (32.0-36.0); PLATELET COUNT 248 K/uL (150-450); RED BLOOD COUNT 2.48 M/uL (4.00-6.00)
[2024-08-04 00:12] LABS: INR 1.27; PROTHROMBIN TIME 13.6 SECONDS (9.0-11.5)
[2024-08-04] MEDS ORDERED: FUROsemide 40 MG/4 ML VIAL ONE (00:17)
[2024-08-04 00:18] LABS: D DIMER 16.71 MG/L; PARTIAL THROMBOPLASTIN TIME 28.5 SECONDS (22.0-34.0)
[2024-08-04 00:26] LABS: HEMATOCRIT 22.7 % (36.0-45.00); MEAN CORPUSCULAR HEMOGLOBIN 30.2 pg (27.00-32.0)
[2024-08-04 00:27] LABS: HEMOGLOBIN 7.5 g/dL (12.0-15.00)
[2024-08-04 00:28] LABS: ALBUMIN 1.6 gm/dL (3.4-5.0); BILIRUBIN TOTAL 0.42 mg/dL (0.3-1.2); CALCIUM 8.4 mg/dL (8.5-10.1); GLOBULINA 5.2 G/DL (2.4-3.5); TOTAL PROTEIN 6.8 gm/dL (6.4-8.2)
[2024-08-04 00:33] LABS: CREATININE SERUM 5.92 mg/dL (0.55-1.02)
[2024-08-04 00:34] LABS: GFR 7.24; POTASSIUM 6.54 mEq/L (3.5-5.1)
[2024-08-04 00:43] LABS: PH,URINE 7.5 (5.0-8.0); URINE APPEARANCE Clear; URINE BILIRRUBIN Negative (NEGATIVE); URINE BLOOD Trace; URINE COLOR Yellow; URINE KETONE Trace (NEGATIVE); URINE LEUKOCYTE Negative; URINE NITRATE Negative; URINE PROTEIN >=1000 (NEGATIVE); URINE UROBILINOGEN 0.2 E.U./dl
[2024-08-04 00:47] LABS: URINE CAST 3.38 uL (0.0-1.40); URINE EPITHELIAL CELLS 9.4 uL (0.0-38.8); URINE RBC 27.2 uL (0.0-20.8); URINE WBC 38.6 uL (0.0-23.2)
[2024-08-04 01:03] LABS: URINE GLUCOSE 500 MG/DL (NEGATIVE)
[2024-08-04 01:04] LABS: URINE EPITHELIAL CELLS 0-4 /HPF
[2024-08-04] MEDS ORDERED: SODIUM POLYSTYRENE SULFONATE 30G/8 TSP PO STA (02:35)
[2024-08-04 05:00] LABS: ABG PH 7.444 (7.35-7.45); ABG PO2 99.9 mmHg (80-100); ABG pCO2 31.8 mmHg (35-45); BASE EXCESS -1.7 mmol/l; BICARBONATE 21.3 mmol/l (23-25); Tco2 22.3 mmol/l; allen test SATISFACTORY; o2 32 %; puncture site RADIAL RIGHT
[2024-08-04] MEDS ORDERED: CEFTRIAXONE SODIUM 2,000 MG in 0.9 % SODIUM CHLORIDE 100 ML IV SCH (10:52)
[2024-08-04] MEDS ORDERED: METOPROLOL TARTRATE 50 MG TABLET PO SCH (10:55)
[2024-08-04] MEDS ORDERED: CLONAZEPAM 0.5 MG TABLET PO SCH (10:55)
[2024-08-04] MEDS ORDERED: ACETAMINOPHEN 500 MG GEL..CAP PO PRN (11:00)
[2024-08-04] MEDS ORDERED: FUROsemide 20 MG/2 ML VIAL IV ONE (11:00)
[2024-08-04] MEDS ORDERED: 0.9 % SODIUM CHLORIDE 1,000 ML IV SCH (11:00)
[2024-08-04] MEDS ORDERED: METOPROLOL TARTRATE 25 MG TABLET PO ONE (11:11)
[2024-08-04] MEDS ORDERED: CEFTRIAXONE SODIUM 2,000 MG VIAL ONE (11:11)
[2024-08-04 11:22] VITALS: BP 151/84
[2024-08-04 11:28] VITALS: BP 151/84; O2SAT 100
[2024-08-04 17:43] VITALS: BP 131/84
[2024-08-04] MEDS ORDERED: PANTOPRAZOLE SODIUM 40 MG TABLET.DR PO SCH (17:48)
[2024-08-04] MEDS ORDERED: PREDNISONE 5 MG TABLET PO SCH (17:52)
[2024-08-04] MEDS ORDERED: HEPARIN SODIUM,PORCINE 5,000 UNITS/ML VIAL ONE (20:29)
[2024-08-04] MEDS ORDERED: HEPARIN SODIUM,PORCINE 5,000 UNITS/ML VIAL IJ ONE (21:00)
[2024-08-04] MEDS ORDERED: FUROsemide 20 MG/2 ML VIAL IV SCH (21:00)
[2024-08-04 22:00] VITALS: O2SAT 98
[2024-08-04 22:57] LABS: HEMATOCRIT 30.8 % (36.0-45.00); MEAN CELL VOLUME 86.9 fL (80.00-100.00); MEAN CORPUSCULAR HEMOGLOBIN 29.9 pg (27.00-32.0); MEAN CORPUSCULAR HGB CONC 34.4 g/dl (32.0-36.0); PLATELET COUNT 190 K/uL (150-450); RED BLOOD COUNT 3.54 M/uL (4.00-6.00); RED CELL DISTRIBUTION WIDTH 16.2 % (11.5-14.5)
[2024-08-04 23:02] LABS: HEMOGLOBIN 10.6 g/dL (12.0-15.00)
[2024-08-05] VITALS (13 sets, daily range): BP systolic 121–156; BP diastolic 69–85; O2SAT 04–100
[2024-08-05 08:05] LABS: ALBUMIN 1.4 gm/dL (3.4-5.0); BILIRUBIN TOTAL 0.53 mg/dL (0.3-1.2); CALCIUM 7.7 mg/dL (8.5-10.1); CREATININE SERUM 3.01 mg/dL (0.55-1.02); GFR 15.8; POTASSIUM 4.56 mEq/L (3.5-5.1); TOTAL PROTEIN 6.4 gm/dL (6.4-8.2)
[2024-08-05] MEDS ORDERED: AMIODARONE HCL 200 MG TABLET PO STA (11:11)
[2024-08-05 17:57] LABS: GLU PLEURAL FLUID 131 mg/dl; LDH PLEURAL FLUID 68 U/L; PLEURAL FLUID APPEARANCE HAZY; PLEURAL FLUID COLOR YELLOW
[2024-08-05 18:27] LABS: MONONUCLEAR 29 %; POLYMORPHONUCLEAR 71 %
[2024-08-06] VITALS (8 sets, daily range): BP systolic 138–159; BP diastolic 75–89; O2SAT 99–100
[2024-08-06] MEDS ORDERED: AMIODARONE HCL 200 MG TABLET PO SCH (09:00)
[2024-08-06] MEDS ORDERED: HEPARIN SODIUM,PORCINE 5,000 UNITS/ML VIAL ONE (17:18)
[2024-08-07 04:00] VITALS: BP 124/75; O2SAT 100
[2024-08-07 07:16] VITALS: BP 139/79; O2SAT 100
[2024-08-07 12:19] VITALS: BP 129/78; O2SAT 72
[2024-08-07 15:23] VITALS: BP 131/72; O2SAT 100
[2024-08-07 20:00] VITALS: BP 136/80; O2SAT 100
[2024-08-07 23:40] VITALS: BP 136/80; O2SAT 99
[2024-08-08 04:00] VITALS: BP 140/71; O2SAT 100
[2024-08-08 07:19] VITALS: BP 133/65; O2SAT 100
[2024-08-08 07:30] LABS: ALBUMIN 1.4 gm/dL (3.4-5.0); BILIRUBIN TOTAL 0.27 mg/dL (0.3-1.2); CREATININE SERUM 3.89 mg/dL (0.55-1.02); GFR 11.75; GLOBULINA 4.7 G/DL (2.4-3.5); POTASSIUM 5.29 mEq/L (3.5-5.1); TOTAL PROTEIN 6.1 gm/dL (6.4-8.2)
[2024-08-08 12:10] VITALS: BP 110/92; O2SAT 100
[2024-08-08 15:12] VITALS: BP 141/74; O2SAT 100
[2024-08-08 20:00] VITALS: BP 140/74; O2SAT 100
[2024-08-08 23:38] VITALS: BP 145/68; O2SAT 100
[2024-08-09 04:05] VITALS: BP 160/73; O2SAT 100
[2024-08-09 07:25] VITALS: BP 150/75; O2SAT 100
[2024-08-09] MEDS ORDERED: TRAMADOL HCL 50 MG TABLET PO PRN (11:45)
[2024-08-09 12:00] VITALS: BP 153/57; O2SAT 100
[2024-08-09] MEDS ORDERED: HEPARIN SODIUM,PORCINE 5,000 UNITS/ML VIAL ONE (16:35)
[2024-08-09 16:43] VITALS: O2SAT 99
[2024-08-09 20:00] VITALS: BP 128/66; O2SAT 100
[2024-08-09 23:32] VITALS: BP 131/71; O2SAT 100
[2024-08-10 07:00] VITALS: BP 125/74; O2SAT 100
[2024-08-10 12:00] VITALS: BP 139/67; O2SAT 100
[2024-08-10 15:38] VITALS: BP 138/79; O2SAT 100
[2024-08-10] MEDS ORDERED: ONDANSETRON HCL 2 MG/ML VIAL IV STA (15:59)
[2024-08-10] MEDS ORDERED: ONDANSETRON HCL 2 MG/ML VIAL IV PRN (16:00)
[2024-08-10] MEDS ORDERED: fentaNYL CITRATE 50 MCG/ML AMPUL IV PUSH ONE (19:00)
[2024-08-10 20:00] VITALS: BP 136/72; O2SAT 100
[2024-08-10 23:28] VITALS: BP 130/73; O2SAT 100
[2024-08-11 04:00] VITALS: BP 138/72; O2SAT 100
[2024-08-11 06:18] LABS: HEMATOCRIT 31.1 % (36.0-45.00); HEMOGLOBIN 10.4 g/dL (12.0-15.00); MEAN CELL VOLUME 90.1 fL (80.00-100.00); MEAN CORPUSCULAR HEMOGLOBIN 30.1 pg (27.00-32.0); MEAN CORPUSCULAR HGB CONC 33.4 g/dl (32.0-36.0); PLATELET COUNT 219 K/uL (150-450); RED BLOOD COUNT 3.45 M/uL (4.00-6.00); RED CELL DISTRIBUTION WIDTH 15.6 % (11.5-14.5)
[2024-08-11 07:15] LABS: ALBUMIN 1.5 gm/dL (3.4-5.0); BILIRUBIN TOTAL 0.28 mg/dL (0.3-1.2); CALCIUM 8.4 mg/dL (8.5-10.1); CREATININE SERUM 3.74 mg/dL (0.55-1.02); GFR 12.3; GLOBULINA 4.8 G/DL (2.4-3.5); MAGNESIUM 2.1 mg/dL (1.8-2.4); PHOSPHOROUS 5.7 mg/dL (2.5-4.9); POTASSIUM 5.55 mEq/L (3.5-5.1); TOTAL PROTEIN 6.3 gm/dL (6.4-8.2)
[2024-08-11 07:24] VITALS: BP 132/72; O2SAT 100
[2024-08-11] MEDS ORDERED: CHLORHEXIDINE GLUCONATE 120 ML BOTTLE TOP ONE (10:21)
[2024-08-11] MEDS ORDERED: 0.9 % SODIUM CHLORIDE 1,000 ML IV SCH (14:00)
[2024-08-11] MEDS ORDERED: LOPERAMIDE HCL 2 MG CAPSULE PO NR (14:15)
[2024-08-11 15:30] VITALS: BP 144/73; O2SAT 100
[2024-08-11] MEDS ORDERED: HEPARIN SODIUM,PORCINE 5,000 UNITS/ML VIAL ONE (19:19)
[2024-08-11 20:00] VITALS: BP 138/83; O2SAT 100
[2024-08-11] MEDS ORDERED: ONDANSETRON HCL 2 MG/ML VIAL ONE (21:24)
[2024-08-11] MEDS ORDERED: ONDANSETRON HCL 2 MG/ML VIAL IV PRN (22:15)
[2024-08-11 23:32] VITALS: O2SAT 100
[2024-08-12 07:29] VITALS: BP 143/71; O2SAT 100
[2024-08-12 12:17] VITALS: BP 140/66; O2SAT 100
[2024-08-12 15:36] VITALS: BP 141/77; O2SAT 100
== END 2024-08-12 18:03 | disposition home or self-care (01) | DRG 689 ==
LOC: ER 22:38 → SEC-K 08-04 10:56 → MEDI 08-04 10:56 → ICU 08-05 20:51
PROVIDERS: General Practice; Internal Medicine; ADMIT Internal Medicine; ATTEND Internal Medicine
PROC: BB24ZZZ Computerized Tomography (CT Scan) of Bilateral Lungs (ICD-10-PCS; principal; 2024-08-04)
PROC: B246ZZZ Ultrasonography of Right and Left Heart (ICD-10-PCS; 2024-08-04)
PROC: 4A12X4Z Monitoring of Cardiac Electrical Activity, External Approach (ICD-10-PCS; 2024-08-04)
PROC: 30233N1 Transfusion of Nonautologous Red Blood Cells into Peripheral Vein, Percutaneous Approach (ICD-10-PCS; 2024-08-04)
PROC: 5A1D70Z Performance of Urinary Filtration, Intermittent, Less than 6 Hours Per Day (ICD-10-PCS; 2024-08-04)
PROC: 0W9B3ZZ Drainage of Left Pleural Cavity, Percutaneous Approach (ICD-10-PCS; 2024-08-05)
PROC: 5A1D70Z Performance of Urinary Filtration, Intermittent, Less than 6 Hours Per Day (ICD-10-PCS; 2024-08-06)
PROC: 0W993ZZ Drainage of Right Pleural Cavity, Percutaneous Approach (ICD-10-PCS; 2024-08-08)
PROC: B246ZZZ Ultrasonography of Right and Left Heart (ICD-10-PCS; 2024-08-09)
PROC: 5A1D70Z Performance of Urinary Filtration, Intermittent, Less than 6 Hours Per Day (ICD-10-PCS; 2024-08-09)
PROC: 0W9D3ZZ Drainage of Pericardial Cavity, Percutaneous Approach (ICD-10-PCS; 2024-08-10)
PROC: B246ZZZ Ultrasonography of Right and Left Heart (ICD-10-PCS; 2024-08-11)
PROC: 5A1D70Z Performance of Urinary Filtration, Intermittent, Less than 6 Hours Per Day (ICD-10-PCS; 2024-08-11)
DX: N39.0 Urinary tract infection, site not specified (principal); I50.23 Acute on chronic systolic (congestive) heart failure; N18.6 End stage renal disease; J90 Pleural effusion, not elsewhere classified; I48.20 Chronic atrial fibrillation, unspecified; I13.2 Hypertensive heart and chronic kidney disease with heart failure and with stage 5 chronic kidney disease, or end stage renal disease; I31.39 Other pericardial effusion (noninflammatory); Z99.2 Dependence on renal dialysis; E87.8 Other disorders of electrolyte and fluid balance, not elsewhere classified; I34.0 Nonrheumatic mitral (valve) insufficiency; D64.89 Other specified anemias; E03.9 Hypothyroidism, unspecified

== ENCOUNTER 2024-09-26 04:40 | Inpatient (IN) | payer OTHER ==
[~2024-09-26] VITALS: Ht 152.4 cm; Wt 54.4 kg
[~2024-09-26 04:40] MED LIST changes: +CLONAZEPAM0.5 MG PO
[2024-09-26] MEDS ORDERED: IPRATROPIUM/ALBUTEROL SULFATE 3 ML AMPUL.NEB IH SCH (05:57)
[2024-09-26] MEDS ORDERED: FUROsemide 40 MG/4 ML VIAL IV STA (05:59)
[2024-09-26] MEDS ORDERED: FUROsemide 40 MG/4 ML VIAL ONE (06:07)
[2024-09-26] MEDS ORDERED: IPRATROPIUM/ALBUTEROL SULFATE 3 ML AMPUL.NEB IH ONE ×4 (06:16→16:48)
[2024-09-26 06:25] LABS: ABG pCO2 40.5 mmHg (35-45); BICARBONATE 28.2 mmol/l (23-25); SaO2 95.4 %; Tco2 29.4 mmol/l
[2024-09-26 06:36] LABS: allen test SATISFACTORY; mode NASAL CANNULA; o2 28 %; puncture site RADIAL RIGHT
[2024-09-26 07:04] LABS: ALBUMIN 1.6 gm/dL (3.4-5.0); BILIRUBIN TOTAL 0.37 mg/dL (0.3-1.2); GFR 9.71; GLOBULINA 5.9 G/DL (2.4-3.5); POTASSIUM 4.09 mEq/L (3.5-5.1); TOTAL PROTEIN 7.5 gm/dL (6.4-8.2)
[2024-09-26 07:19] LABS: CREATININE SERUM 4.59 mg/dL (0.55-1.02)
[2024-09-26 07:26] LABS: HEMATOCRIT 24.7 % (36.0-45.00); MEAN CELL VOLUME 88.2 fL (80.00-100.00); MEAN CORPUSCULAR HGB CONC 34.1 g/dl (32.0-36.0); PLATELET COUNT 249 K/uL (150-450); RED CELL DISTRIBUTION WIDTH 16.2 % (11.5-14.5)
[2024-09-26 07:37] LABS: HEMOGLOBIN 8.4 g/dL (12.0-15.00)
[2024-09-26] MEDS ORDERED: FUROsemide 20 MG/2 ML VIAL IV ONE (08:45)
[2024-09-26] MEDS ORDERED: FUROsemide 20 MG/2 ML VIAL ONE ×2 (08:47→13:30)
[2024-09-26] MEDS ORDERED: FUROsemide 20 MG/2 ML VIAL IV SCH (12:38)
[2024-09-26] MEDS ORDERED: METOPROLOL TARTRATE 50 MG TABLET PO SCH (12:38)
[2024-09-26] MEDS ORDERED: CEFTRIAXONE SODIUM 2,000 MG in 0.9 % SODIUM CHLORIDE 100 ML IV SCH (12:40)
[2024-09-26 13:21] VITALS: BP 170/96; O2SAT 100
[2024-09-26] MEDS ORDERED: CEFTRIAXONE SODIUM 2,000 MG VIAL ONE (13:30)
[2024-09-26] MEDS ORDERED: DILTIAZEM HCL 25 MG/5 ML VIAL IV ONE (14:06)
[2024-09-26] MEDS ORDERED: DILTIAZEM HCL 50 MG/10 ML VIAL IV STA (14:27)
[2024-09-26] MEDS ORDERED: DILTIAZEM HCL 25 MG/5 ML VIAL IV STA (14:28)
[2024-09-26 14:35] LABS: INR 1.1; PARTIAL THROMBOPLASTIN TIME 25.1 SECONDS (22.0-34.0); PROTHROMBIN TIME 11.9 SECONDS (9.0-11.5)
[2024-09-26 14:44] VITALS: BP 160/90
[2024-09-26] MEDS ORDERED: DILTIAZEM HCL 125 MG in 0.9 % SODIUM CHLORIDE 100 ML IV SCH (14:45)
[2024-09-26 14:48] LABS: CHOL HDL RATIO 2.5 (0-5.0)
[2024-09-26 14:49] LABS: ALT/SGPT 11 U/L (12-78); AST/SGOT 13 U/L (15-37); LDH 174 U/L (84-246); PHOSPHOKINASE CREATININE 26 U/L (26-192)
[2024-09-26 15:12] VITALS: BP 159/93; O2SAT 99
[2024-09-26 15:50] LABS: URINE APPEARANCE Clear; URINE BILIRRUBIN Negative (NEGATIVE); URINE BLOOD Large; URINE COLOR Yellow; URINE KETONE Trace (NEGATIVE); URINE LEUKOCYTE Small; URINE NITRATE Negative; URINE PROTEIN >=1000 (NEGATIVE); URINE UROBILINOGEN 0.2 E.U./dl
[2024-09-26 15:54] LABS: URINE BACTERIA 298.6 uL (0.0-1933); URINE EPITHELIAL CELLS 3.7 uL (0.0-38.8); URINE RBC 978.3 uL (0.0-20.8); URINE WBC 18.3 uL (0.0-23.2)
[2024-09-26 16:24] LABS: URINE CAST 1.03 uL (0.0-1.40); URINE GLUCOSE 250 MG/DL (NEGATIVE)
[2024-09-26 18:11] VITALS: BP 154/94
[2024-09-26] MEDS ORDERED: HEPARIN SODIUM,PORCINE 5,000 UNITS/ML VIAL ONE (21:50)
[2024-09-26 22:57] VITALS: BP 166/92; O2SAT 100
[2024-09-27 00:30] LABS: HEMATOCRIT 31.5 % (36.0-45.00); MEAN CELL VOLUME 87.6 fL (80.00-100.00); MEAN CORPUSCULAR HEMOGLOBIN 28.9 pg (27.00-32.0); PLATELET COUNT 205 K/uL (150-450); RED BLOOD COUNT 3.59 M/uL (4.00-6.00); RED CELL DISTRIBUTION WIDTH 15.6 % (11.5-14.5)
[2024-09-27 00:43] LABS: HEMOGLOBIN 10.4 g/dL (12.0-15.00)
[2024-09-27 04:00] VITALS: BP 142/96; O2SAT 100
[2024-09-27 06:18] LABS: HEMATOCRIT 31.5 % (36.0-45.00); HEMOGLOBIN 10.6 g/dL (12.0-15.00); MEAN CORPUSCULAR HEMOGLOBIN 29.2 pg (27.00-32.0); MEAN CORPUSCULAR HGB CONC 33.6 g/dl (32.0-36.0); PLATELET COUNT 200 K/uL (150-450); RED BLOOD COUNT 3.62 M/uL (4.00-6.00)
[2024-09-27 06:48] LABS: ALBUMIN 1.6 gm/dL (3.4-5.0); BILIRUBIN TOTAL 0.44 mg/dL (0.3-1.2); CREATININE SERUM 2.83 mg/dL (0.55-1.02); GFR 16.97; GLOBULINA 5.6 G/DL (2.4-3.5); MAGNESIUM 2.1 mg/dL (1.8-2.4); PHOSPHOROUS 4.3 mg/dL (2.5-4.9); POTASSIUM 4.03 mEq/L (3.5-5.1); TOTAL PROTEIN 7.2 gm/dL (6.4-8.2)
[2024-09-27 07:57] VITALS: BP 149/93; O2SAT 100
[2024-09-27 12:00] VITALS: BP 175/105; O2SAT 100
[2024-09-27] MEDS ORDERED: hydrALAZINE HCL 20 MG VIAL IV PRN (12:30)
[2024-09-27] MEDS ORDERED: hydrALAZINE HCL 50 MG TABLET PO NR (12:30)
[2024-09-27 15:15] VITALS: BP 145/99; O2SAT 100
[2024-09-27] MEDS ORDERED: hydrALAZINE HCL 50 MG TABLET PO SCH (17:00)
[2024-09-27] MEDS ORDERED: METHIMAZOLE 10 MG TABLET PO SCH (17:00)
[2024-09-27] MEDS ORDERED: PREDNISONE 5 MG TABLET PO NR (17:00)
[2024-09-27] MEDS ORDERED: MEPERIDINE HCL/PF 25 MG/ML VIAL IV PRN (18:45)
[2024-09-27 20:00] VITALS: BP 123/80; O2SAT 100
[2024-09-27 23:27] VITALS: BP 135/84; O2SAT 100
[2024-09-28 04:04] VITALS: BP 136/85; O2SAT 100
[2024-09-28 07:39] VITALS: BP 142/91; O2SAT 100
[2024-09-28] MEDS ORDERED: PREDNISONE 5 MG TABLET PO SCH (09:00)
[2024-09-28 11:58] VITALS: BP 137/78; O2SAT 100
[2024-09-28 16:00] VITALS: BP 137/81; O2SAT 100
[2024-09-28] MEDS ORDERED: PIPERACILLIN/TAZOBACTAM SODIUM 2.25 GM in DEXTROSE 5 % IN WATER 50 ML IV SCH (17:00)
[2024-09-28 18:02] LABS: HEMATOCRIT 25.2 % (36.0-45.00); MEAN CELL VOLUME 87.6 fL (80.00-100.00); MEAN CORPUSCULAR HGB CONC 33.4 g/dl (32.0-36.0); PLATELET COUNT 200 K/uL (150-450); RED BLOOD COUNT 2.88 M/uL (4.00-6.00); RED CELL DISTRIBUTION WIDTH 15.6 % (11.5-14.5)
[2024-09-28 18:07] LABS: HEMOGLOBIN 8.4 g/dL (12.0-15.00); MEAN CORPUSCULAR HEMOGLOBIN 29.1 pg (27.00-32.0)
[2024-09-28 18:58] LABS: ALBUMIN 1.5 gm/dL (3.4-5.0); BILIRUBIN TOTAL 0.24 mg/dL (0.3-1.2); CALCIUM 7.6 mg/dL (8.5-10.1); MAGNESIUM 1.8 mg/dL (1.8-2.4); PHOSPHOROUS 5.4 mg/dL (2.5-4.9); POTASSIUM 4.54 mEq/L (3.5-5.1); TOTAL PROTEIN 6.5 gm/dL (6.4-8.2)
[2024-09-28 18:59] LABS: C-REACTIVE PROTEIN 13.4 MG/DL (0.00-0.29); CREATININE SERUM 3.99 mg/dL (0.55-1.02); GFR 11.42
[2024-09-28] MEDS ORDERED: HEPARIN SODIUM,PORCINE 5,000 UNITS/ML VIAL ONE (19:44)
[2024-09-28 20:00] VITALS: BP 131/75; O2SAT 100
[2024-09-28 20:17] LABS: TP PLEURAL FLUID 3.8 g/dl
[2024-09-28 20:45] LABS: MONONUCLEAR 100 %; PLEURAL FLUID APPEARANCE CRYSTAL CLEAR; PLEURAL FLUID COLOR YELLOW
[2024-09-28 23:06] VITALS: BP 144/86; O2SAT 100
[2024-09-29 04:00] VITALS: BP 154/82; O2SAT 100
[2024-09-29 07:31] VITALS: BP 158/74; O2SAT 100
[2024-09-29] MEDS ORDERED: CETIRIZINE HCL 5 MG/5 ML ML PO SCH (10:15)
[2024-09-29 12:00] VITALS: BP 131/75; O2SAT 100
[2024-09-29 15:39] LABS: ob NEGATIVE (NEGATIVE)
[2024-09-29 16:00] VITALS: BP 120/79; O2SAT 100
[2024-09-29] MEDS ORDERED: METOPROLOL TARTRATE 50 MG TABLET PO SCH (17:00)
[2024-09-29 17:06] LABS: MEAN CELL VOLUME 88.4 fL (80.00-100.00); MEAN CORPUSCULAR HGB CONC 37.8 g/dl (32.0-36.0); PLATELET COUNT 181 K/uL (150-450); RED BLOOD COUNT 2.51 M/uL (4.00-6.00); RED CELL DISTRIBUTION WIDTH 15.9 % (11.5-14.5)
[2024-09-29 17:30] LABS: MEAN CORPUSCULAR HEMOGLOBIN 33.4 pg (27.00-32.0)
[2024-09-29 17:32] LABS: HEMATOCRIT 22.2 % (36.0-45.00); HEMOGLOBIN 8.4 g/dL (12.0-15.00)
[2024-09-29 20:00] VITALS: BP 129/77; O2SAT 100
[2024-09-29 23:17] VITALS: BP 122/73; O2SAT 100
[2024-09-30 04:00] VITALS: BP 1396/71; O2SAT 100
[2024-09-30 07:29] VITALS: BP 139/71; O2SAT 100
[2024-09-30] MEDS ORDERED: EPOETIN ALFA-EPBX 10,000 UNIT/ML VIAL (Retacrit) SUBCUTANEO SCH (09:00)
[2024-09-30] MEDS ORDERED: PANTOPRAZOLE SODIUM 40 MG TABLET.DR PO SCH (09:00)
[2024-09-30 12:30] VITALS: BP 122/73
[2024-09-30 14:37] LABS: FERRITIN 1506.3 NG/ML (8-252)
[2024-09-30 14:59] LABS: FOLIC ACID 8.62 ng/ml (4.78-20)
[2024-09-30 15:24] VITALS: BP 127/74; O2SAT 100
[2024-09-30] MEDS ORDERED: Cyanocobalamin/Mecobalamin 1 TAB.SL SL SCH (17:00)
[2024-09-30] MEDS ORDERED: SOD FERRIC GLUC COMPLX/SUCROSE 62.5 MG/5 ML AMPUL IV SCH (17:00)
[2024-09-30] MEDS ORDERED: VITAMIN B COMPLEX 1 EACH PO SCH (17:00)
[2024-09-30] MEDS ORDERED: HEPARIN SODIUM,PORCINE 5,000 UNITS/ML VIAL ONE (17:15)
[2024-09-30 20:00] VITALS: BP 136/73; O2SAT 100
[2024-09-30 20:54] LABS: HEMATOCRIT 26.2 % (36.0-45.00); HEMOGLOBIN 10.3 g/dL (12.0-15.00); MEAN CORPUSCULAR HEMOGLOBIN 34.2 pg (27.00-32.0); MEAN CORPUSCULAR HGB CONC 39.3 g/dl (32.0-36.0); RED BLOOD COUNT 3.01 M/uL (4.00-6.00); RED CELL DISTRIBUTION WIDTH 15.5 % (11.5-14.5)
[2024-09-30] MEDS ORDERED: CYANOCOBALAMIN (VITAMIN B-12) 1,000 MCG/ML VIAL IM SCH (21:00)
[2024-09-30 21:11] LABS: PLATELET COUNT 165 K/uL (150-450)
[2024-09-30 23:05] VITALS: BP 145/75; O2SAT 100
[2024-10-01] VITALS (7 sets, daily range): BP systolic 100–147; BP diastolic 72–89; O2SAT 98–100
[2024-10-02 04:08] VITALS: BP 147/81; O2SAT 100
[2024-10-02 07:00] VITALS: BP 146/79; O2SAT 100
[2024-10-02 12:00] VITALS: BP 156/91; O2SAT 100
[2024-10-02 14:44] LABS: URINE APPEARANCE Turbid; URINE BILIRRUBIN Negative (NEGATIVE); URINE BLOOD Small; URINE COLOR Yellow; URINE KETONE Negative (NEGATIVE); URINE LEUKOCYTE Moderate; URINE NITRATE Negative; URINE PROTEIN >=1000 (NEGATIVE); URINE UROBILINOGEN 0.2 E.U./dl
[2024-10-02 14:45] LABS: URINE BACTERIA 2976.7 uL (0.0-1933); URINE CAST 3.74 uL (0.0-1.40); URINE EPITHELIAL CELLS 5.2 uL (0.0-38.8); URINE RBC 179.5 uL (0.0-20.8); URINE WBC 2150.2 uL (0.0-23.2)
[2024-10-02 15:07] LABS: URINE GLUCOSE 250 MG/DL (NEGATIVE)
[2024-10-02 17:56] VITALS: O2SAT 99
[2024-10-02 19:16] VITALS: BP 150/74
[2024-10-02 21:37] VITALS: O2SAT 99
[2024-10-03] VITALS (10 sets, daily range): BP systolic 135–175; BP diastolic 77–95; O2SAT 96–99
[2024-10-03 06:30] LABS: HEMATOCRIT 33.6 % (36.0-45.00); HEMOGLOBIN 11.3 g/dL (12.0-15.00); MEAN CELL VOLUME 87.1 fL (80.00-100.00); MEAN CORPUSCULAR HEMOGLOBIN 29.2 pg (27.00-32.0); MEAN CORPUSCULAR HGB CONC 33.6 g/dl (32.0-36.0); PLATELET COUNT 252 K/uL (150-450); RED BLOOD COUNT 3.86 M/uL (4.00-6.00); RED CELL DISTRIBUTION WIDTH 15.9 % (11.5-14.5)
[2024-10-03 07:05] LABS: ALBUMIN 1.5 gm/dL (3.4-5.0); BILIRUBIN TOTAL 0.29 mg/dL (0.3-1.2); CALCIUM 8.1 mg/dL (8.5-10.1); GLOBULINA 5.1 G/DL (2.4-3.5); MAGNESIUM 1.9 mg/dL (1.8-2.4); PHOSPHOROUS 5.1 mg/dL (2.5-4.9); TOTAL PROTEIN 6.6 gm/dL (6.4-8.2)
[2024-10-03 07:47] LABS: CREATININE SERUM 4.8 mg/dL (0.55-1.02); GFR 9.22; POTASSIUM 5.94 mEq/L (3.5-5.1)
[2024-10-03] MEDS ORDERED: CYANOCOBALAMIN (VITAMIN B-12) 1,000 MCG/ML VIAL IM SCH (09:00)
[2024-10-03 13:06] LABS: quan ag 0.04 IU/mL (.); quan mito 3.02 IU/mL (.); quant nil 0.03 IU/mL (.)
[2024-10-03] MEDS ORDERED: HEPARIN SODIUM,PORCINE 5,000 UNITS/ML VIAL ONE (16:29)
[2024-10-03] MEDS ORDERED: HEPARIN SODIUM,PORCINE 5,000 UNITS/ML VIAL IV STA (16:33)
[2024-10-04] VITALS (7 sets, daily range): BP systolic 135–162; BP diastolic 77–90; O2SAT 98–99
[2024-10-04 16:00] LABS: ALBUMIN 1.6 gm/dL (3.4-5.0); BILIRUBIN TOTAL 0.28 mg/dL (0.3-1.2); CALCIUM 7.9 mg/dL (8.5-10.1); CREATININE SERUM 3.68 mg/dL (0.55-1.02); GFR 12.53; GLOBULINA 5.5 G/DL (2.4-3.5); POTASSIUM 5.73 mEq/L (3.5-5.1); TOTAL PROTEIN 7.1 gm/dL (6.4-8.2)
[2024-10-04] MEDS ORDERED: SODIUM POLYSTYRENE SULFONATE 30G/8 TSP PO SCH (17:03)
[2024-10-04] MEDS ORDERED: fentaNYL CITRATE 50 MCG/ML AMPUL IV PUSH ONE (20:15)
[2024-10-04] MEDS ORDERED: MORPHINE SULFATE 4 MG IV PRN (22:15)
[2024-10-04] MEDS ORDERED: MORPHINE SULFATE 4 MG/ML VIAL IV PRN (22:30)
[2024-10-05] VITALS (9 sets, daily range): BP systolic 147–161; BP diastolic 83–86; O2SAT 99–100
[2024-10-05 06:19] LABS: HEMATOCRIT 36.1 % (36.0-45.00); HEMOGLOBIN 12.1 g/dL (12.0-15.00); MEAN CELL VOLUME 87.7 fL (80.00-100.00); MEAN CORPUSCULAR HEMOGLOBIN 29.4 pg (27.00-32.0); MEAN CORPUSCULAR HGB CONC 33.5 g/dl (32.0-36.0); PLATELET COUNT 170 K/uL (150-450); RED BLOOD COUNT 4.11 M/uL (4.00-6.00); RED CELL DISTRIBUTION WIDTH 15.7 % (11.5-14.5)
[2024-10-05] MEDS ORDERED: FUROsemide 40 MG TABLET PO SCH (09:00)
[2024-10-05] MEDS ORDERED: AMINO ACIDS/PROTEIN HYDROLYS 30 ML BLIST.PACK PO SCH (09:00)
[2024-10-05] MEDS ORDERED: CALCITRIOL 0.25 MCG CAPSULE PO SCH (09:00)
[2024-10-05 10:06] LABS: FREE TRIODOTIRONINE 2.38 pg/ml (2.18-3.98)
[2024-10-05 10:11] LABS: TSH < 0.005 uIU/mL (0.358-3.74)
[2024-10-05] MEDS ORDERED: Calcium Acetate 667 MG CAP PO SCH (11:00)
[2024-10-05 15:10] LABS: hgb a 97.6 % (96.4-98.8); hgb a2 2.4 % (1.8-3.2); hgb f 0 % (0.0-2.0); hgb s 0 % (0.0)
[2024-10-05] MEDS ORDERED: HEPARIN SODIUM,PORCINE 5,000 UNITS/ML VIAL ONE (16:40)
[2024-10-05] MEDS ORDERED: HEPARIN SODIUM,PORCINE 5,000 UNITS/ML VIAL IV STA (16:51)
[2024-10-06] VITALS (7 sets, daily range): BP systolic 139–162; BP diastolic 73–90; O2SAT 95–100
[2024-10-06 07:27] LABS: CALCIUM 7.9 mg/dL (8.5-10.1); CREATININE SERUM 2.66 mg/dL (0.55-1.02); GFR 18.23; MAGNESIUM 1.8 mg/dL (1.8-2.4); PHOSPHOROUS 3.7 mg/dL (2.5-4.9); POTASSIUM 4.11 mEq/L (3.5-5.1)
[2024-10-06] MEDS ORDERED: ISOSORBIDE MONONITRATE 30 MG TABLET PO NR (12:00)
[2024-10-06] MEDS ORDERED: METOPROLOL TARTRATE 50 MG TABLET PO SCH (13:00)
[2024-10-06] MEDS ORDERED: VANCOMYCIN HCL 1,000 MG VIAL IV NR (16:00)
[2024-10-06] MEDS ORDERED: FLUCONAZOLE IN NACL,ISO-OSM 100 ML IV NR (17:00)
[2024-10-06 17:06] LABS: g6pd quant 228 (127-427); rbc 3.04 x10E6/uL (3.77-5.28)
[2024-10-06] MEDS ORDERED: MEROPENEM 500 MG/VIAL VIAL IV SCH (21:00)
[2024-10-06 21:38] LABS: PH,URINE 7.5 (5.0-8.0); URINE APPEARANCE Clear; URINE BILIRRUBIN Negative (NEGATIVE); URINE BLOOD Small; URINE COLOR Yellow; URINE KETONE Negative (NEGATIVE); URINE LEUKOCYTE Small; URINE NITRATE Negative; URINE PROTEIN >=1000 (NEGATIVE); URINE UROBILINOGEN 0.2 E.U./dl
[2024-10-06 21:42] LABS: URINE BACTERIA 304.7 uL (0.0-1933); URINE RBC 38.1 uL (0.0-20.8); URINE WBC 93.8 uL (0.0-23.2)
[2024-10-06 21:58] LABS: URINE CAST 1.17 uL (0.0-1.40); URINE EPITHELIAL CELLS 0.7 uL (0.0-38.8); URINE GLUCOSE 250 MG/DL (NEGATIVE)
[2024-10-07] VITALS (9 sets, daily range): BP systolic 149–153; BP diastolic 71–80; O2SAT 96–99
[2024-10-07 07:22] LABS: HEMATOCRIT 31.9 % (36.0-45.00); HEMOGLOBIN 10.6 g/dL (12.0-15.00); MEAN CELL VOLUME 88.8 fL (80.00-100.00); MEAN CORPUSCULAR HEMOGLOBIN 29.6 pg (27.00-32.0); MEAN CORPUSCULAR HGB CONC 33.3 g/dl (32.0-36.0); PLATELET COUNT 197 K/uL (150-450); RED BLOOD COUNT 3.59 M/uL (4.00-6.00)
[2024-10-07 07:57] LABS: MAGNESIUM 1.8 mg/dL (1.8-2.4); PHOSPHOROUS 5.3 mg/dL (2.5-4.9)
[2024-10-07 08:06] LABS: C-REACTIVE PROTEIN 8.27 MG/DL (0.00-0.29)
[2024-10-07] MEDS ORDERED: ISOSORBIDE MONONITRATE 30 MG TABLET PO SCH (09:00)
[2024-10-07] MEDS ORDERED: VANCOMYCIN HCL 500 MG VIAL IV SCH (17:00)
[2024-10-07] MEDS ORDERED: FLUCONAZOLE IN NACL,ISO-OSM 2 MG/ML ML IV SCH (17:00)
[2024-10-07] MEDS ORDERED: HEPARIN SODIUM,PORCINE 5,000 UNITS/ML VIAL IV ONE (18:30)
[2024-10-07] MEDS ORDERED: ACETAMINOPHEN 500 MG GEL..CAP PO PRN (20:45)
[2024-10-08] VITALS (9 sets, daily range): BP systolic 146–174; BP diastolic 78–84; O2SAT 94–99
[2024-10-09] VITALS (10 sets, daily range): BP systolic 150–176; BP diastolic 80–86; O2SAT 95–99
[2024-10-09] MEDS ORDERED: hydrALAZINE HCL 50 MG TABLET PO SCH (13:00)
[2024-10-09 13:08] LABS: FREE TRIODOTIRONINE 2.03 pg/ml (2.18-3.98); T4 FREE 1.05 NG/ML (0.76-1.46)
[2024-10-09 13:11] LABS: TSH < 0.005 uIU/mL (0.358-3.74)
[2024-10-10] VITALS (8 sets, daily range): BP systolic 100–161; BP diastolic 68–88; O2SAT 96–99
[2024-10-10] MEDS ORDERED: PREDNISONE 5 MG TABLET PO SCH (09:00)
[2024-10-10 11:41] LABS: HEMOGLOBIN 12.1 g/dL (12.0-15.00); MEAN CELL VOLUME 91.2 fL (80.00-100.00); MEAN CORPUSCULAR HEMOGLOBIN 29.8 pg (27.00-32.0); MEAN CORPUSCULAR HGB CONC 32.7 g/dl (32.0-36.0); PLATELET COUNT 201 K/uL (150-450); RED BLOOD COUNT 4.06 M/uL (4.00-6.00); RED CELL DISTRIBUTION WIDTH 17.4 % (11.5-14.5)
[2024-10-10 11:51] LABS: INR 1.05; PARTIAL THROMBOPLASTIN TIME 28.8 SECONDS (22.0-34.0); PROTHROMBIN TIME 11.4 SECONDS (9.0-11.5)
[2024-10-10 11:56] LABS: ALBUMIN 1.7 gm/dL (3.4-5.0); BILIRUBIN TOTAL 0.25 mg/dL (0.3-1.2); CALCIUM 8.5 mg/dL (8.5-10.1); GFR 9.94; GLOBULINA 5.2 G/DL (2.4-3.5); POTASSIUM 5.03 mEq/L (3.5-5.1); TOTAL PROTEIN 6.9 gm/dL (6.4-8.2)
[2024-10-10 12:29] LABS: CREATININE SERUM 4.5 mg/dL (0.55-1.02)
[2024-10-10] MEDS ORDERED: HEPARIN SODIUM,PORCINE 5,000 UNITS/ML VIAL ONE (16:54)
[2024-10-10] MEDS ORDERED: FLUTICASONE PROPIONATE 50 MCG SPRAY NASAL SCH (17:00)
[2024-10-11 00:13] VITALS: O2SAT 98
[2024-10-11] MEDS ORDERED: DORNASE ALFA 1 MG/ML AMPUL.NEB SPEPROC SCH (09:00)
[2024-10-11] MEDS ORDERED: ALTEPLASE 2 MG VIAL SPEPROC SCH (09:00)
[2024-10-11] MEDS ORDERED: SOD FERRIC GLUC COMPLX/SUCROSE 62.5 MG/5 ML AMPUL IV SCH (17:00)
[2024-10-12 01:57] VITALS: BP 145/80; O2SAT 98
[2024-10-12 02:00] VITALS: O2SAT 99
[2024-10-12 05:31] VITALS: O2SAT 99
[2024-10-12 08:33] LABS: HEMOGLOBIN 11.2 g/dL (12.0-15.00); MEAN CELL VOLUME 92.3 fL (80.00-100.00); MEAN CORPUSCULAR HEMOGLOBIN 29.6 pg (27.00-32.0); MEAN CORPUSCULAR HGB CONC 32.1 g/dl (32.0-36.0); PLATELET COUNT 164 K/uL (150-450); RED BLOOD COUNT 3.79 M/uL (4.00-6.00); RED CELL DISTRIBUTION WIDTH 20.1 % (11.5-14.5)
[2024-10-12 09:10] VITALS: BP 149/72
[2024-10-12 09:27] LABS: ALBUMIN 1.6 gm/dL (3.4-5.0); BILIRUBIN TOTAL 0.35 mg/dL (0.3-1.2); CALCIUM 8.2 mg/dL (8.5-10.1); GFR 11.38; GLOBULINA 4.9 G/DL (2.4-3.5); MAGNESIUM 2.1 mg/dL (1.8-2.4); PHOSPHOROUS 4.6 mg/dL (2.5-4.9); POTASSIUM 4.98 mEq/L (3.5-5.1); TOTAL PROTEIN 6.5 gm/dL (6.4-8.2)
[2024-10-12 10:10] VITALS: O2SAT 99
[2024-10-12] MEDS ORDERED: HEPARIN SODIUM,PORCINE 5,000 UNITS/ML VIAL IV NR (16:30)
[2024-10-12 17:51] VITALS: BP 131/85; O2SAT 96
[2024-10-13 01:51] VITALS: BP 136/74; O2SAT 96
[2024-10-13 09:24] VITALS: BP 160/81; O2SAT 96
[2024-10-13 16:49] VITALS: BP 137/77; O2SAT 99
[2024-10-13 19:06] LABS: anti thy 1106.7 IU/mL (0.0-0.9)
[2024-10-13] MEDS ORDERED: BENZONATATE 100 MG CAPSULE PO SCH (21:00)
[2024-10-14 02:57] VITALS: BP 163/78; O2SAT 100
[2024-10-14 07:52] VITALS: BP 175/82
[2024-10-14] MEDS ORDERED: HEPARIN SODIUM,PORCINE 5,000 UNITS/ML VIAL ONE (16:51)
[2024-10-14] MEDS ORDERED: HEPARIN SODIUM,PORCINE 5,000 UNITS/ML VIAL IV NR (17:00)
[2024-10-14 18:34] VITALS: BP 141/81; O2SAT 95
[2024-10-15 02:07] VITALS: BP 165/87; O2SAT 98
[2024-10-15 09:48] VITALS: BP 165/81; O2SAT 95
[2024-10-15 16:32] VITALS: BP 144/69
[2024-10-15 16:34] VITALS: BP 152/81
[2024-10-16 03:23] VITALS: BP 158/88; O2SAT 98
[2024-10-16 09:02] VITALS: BP 164/90; O2SAT 96
[2024-10-16 17:16] VITALS: BP 142/88
[2024-10-16 17:17] VITALS: BP 128/75
[2024-10-17 03:33] VITALS: BP 154/82; O2SAT 97
[2024-10-17] MEDS ORDERED: TRAMADOL HCL 50 MG TABLET PO STA (08:07)
[2024-10-17 08:21] VITALS: BP 168/77
[2024-10-17] MEDS ORDERED: ALBUMIN HUMAN 100 ML VIAL IV SCH (09:00)
[2024-10-17] MEDS ORDERED: HEPARIN SODIUM,PORCINE 5,000 UNITS/ML VIAL ONE (16:13)
[2024-10-17 18:07] VITALS: BP 145/78; O2SAT 98
[2024-10-17] MEDS ORDERED: TRAMADOL HCL 50 MG TABLET PO PRN (19:15)
[2024-10-18] VITALS: BP 129/75; O2SAT 97
[2024-10-18 06:30] LABS: HEMATOCRIT 31.7 % (36.0-45.00); HEMOGLOBIN 10.6 g/dL (12.0-15.00); MEAN CELL VOLUME 92.8 fL (80.00-100.00); MEAN CORPUSCULAR HGB CONC 33.4 g/dl (32.0-36.0); RED BLOOD COUNT 3.42 M/uL (4.00-6.00); RED CELL DISTRIBUTION WIDTH 20.2 % (11.5-14.5)
[2024-10-18 06:31] LABS: PLATELET COUNT 53 K/uL (150-450)
[2024-10-18 06:53] LABS: ALBUMIN 1.9 gm/dL (3.4-5.0); BILIRUBIN TOTAL 0.87 mg/dL (0.3-1.2); CALCIUM 8.2 mg/dL (8.5-10.1); CREATININE SERUM 3.13 mg/dL (0.55-1.02); GFR 15.11; GLOBULINA 4.3 G/DL (2.4-3.5); MAGNESIUM 1.8 mg/dL (1.8-2.4); PHOSPHOROUS 3.8 mg/dL (2.5-4.9); POTASSIUM 4.24 mEq/L (3.5-5.1); TOTAL PROTEIN 6.2 gm/dL (6.4-8.2)
[2024-10-18] MEDS ORDERED: PREDNISONE 5 MG TABLET PO SCH (09:00)
[2024-10-18] MEDS ORDERED: GUAIFENESIN 200 MG/10 ML BLIST.PACK PO SCH (09:00)
[2024-10-18] MEDS ORDERED: AMINO ACIDS/PROTEIN HYDROLYS 30 ML BLIST.PACK PO SCH (09:00)
[2024-10-18 09:03] VITALS: BP 132/78; O2SAT 99
[2024-10-18 09:23] LABS: PLATELET COUNT 62 K/uL (150-450)
[2024-10-18 09:25] LABS: PLT IN CITRATE 61 K/uL (150-450)
[2024-10-18] MEDS ORDERED: PREDNISONE 10 MG TABLET PO SCH (17:00)
[2024-10-18 20:36] VITALS: BP 123/69
[2024-10-19 01:04] VITALS: BP 142/64; O2SAT 99
[2024-10-19 08:00] VITALS: BP 146/74
[2024-10-19] MEDS ORDERED: HEPARIN SODIUM,PORCINE 5,000 UNITS/ML VIAL IV NR (17:00)
[2024-10-19 18:18] VITALS: BP 131/78; O2SAT 100
[2024-10-20 02:55] VITALS: BP 145/94
[2024-10-20] MEDS ORDERED: CHOLECALCIFEROL (VITAMIN D3) 5,000 UNITS TABLET PO SCH (09:00)
[2024-10-20 09:08] VITALS: BP 150/79; O2SAT 98
[2024-10-20 13:06] LABS: Glycopro Negative (Negative); HL Positive (Negative); lb Negative (Negative); llb Positive (Negative)
[2024-10-20 14:31] LABS: ABG PH 7.339 (7.35-7.45); ABG pCO2 40.7 mmHg (35-45); BASE EXCESS -4.1 mmol/l; BICARBONATE 21.4 mmol/l (23-25); SaO2 93.4 %; Tco2 22.7 mmol/l; o2 21 %
[2024-10-20 14:32] LABS: allen test SATISFACTORY; mode ROOM AIR; puncture site RADIAL RIGHT
[2024-10-20 17:53] VITALS: BP 141/80; O2SAT 96
[2024-10-21 00:14] VITALS: BP 142/90
[2024-10-21 05:58] LABS: HEMOGLOBIN 10.3 g/dL (12.0-15.00); MEAN CELL VOLUME 94.9 fL (80.00-100.00); MEAN CORPUSCULAR HEMOGLOBIN 30.6 pg (27.00-32.0); MEAN CORPUSCULAR HGB CONC 32.3 g/dl (32.0-36.0); PLATELET COUNT 70 K/uL (150-450); RED BLOOD COUNT 3.37 M/uL (4.00-6.00); RED CELL DISTRIBUTION WIDTH 19.1 % (11.5-14.5)
[2024-10-21 06:45] LABS: BILIRUBIN TOTAL 0.6 mg/dL (0.3-1.2); CALCIUM 8.5 mg/dL (8.5-10.1); CREATININE SERUM 3.32 mg/dL (0.55-1.02); GFR 14.11; GLOBULINA 4.4 G/DL (2.4-3.5); PHOSPHOROUS 3.4 mg/dL (2.5-4.9); POTASSIUM 4.7 mEq/L (3.5-5.1); TOTAL PROTEIN 6.4 gm/dL (6.4-8.2)
[2024-10-21 06:50] LABS: C-REACTIVE PROTEIN 7.09 MG/DL (0.00-0.29)
[2024-10-21 09:29] VITALS: BP 153/86; O2SAT 98
[2024-10-21 11:21] LABS: MANUAL PLATELET COUNT 78
[2024-10-21 17:11] VITALS: BP 150/81; O2SAT 100
[2024-10-21] MEDS ORDERED: HEPARIN SODIUM,PORCINE 5,000 UNITS/ML VIAL IV NR (17:45)
[2024-10-21] MEDS ORDERED: AMIKACIN SULFATE 250 MG/ML - 1GM VIAL IV ONE (21:00)
[2024-10-22 02:16] VITALS: BP 156/81; O2SAT 97
[2024-10-22 09:38] LABS: HEMATOCRIT 28.7 % (36.0-45.00); HEMOGLOBIN 9.6 g/dL (12.0-15.00); MEAN CELL VOLUME 93.2 fL (80.00-100.00); MEAN CORPUSCULAR HGB CONC 33.3 g/dl (32.0-36.0); RED BLOOD COUNT 3.08 M/uL (4.00-6.00); RED CELL DISTRIBUTION WIDTH 19.3 % (11.5-14.5)
[2024-10-22 09:48] LABS: PLATELET COUNT 34 K/uL (150-450)
[2024-10-22 10:47] LABS: ALBUMIN 2.1 gm/dL (3.4-5.0); BILIRUBIN TOTAL 0.89 mg/dL (0.3-1.2); CALCIUM 8.1 mg/dL (8.5-10.1); CREATININE SERUM 2.41 mg/dL (0.55-1.02); GFR 20.43; GLOBULINA 3.8 G/DL (2.4-3.5); POTASSIUM 4.46 mEq/L (3.5-5.1); T4 TOTAL 7.87 UG/DL (4.8-13.9); TOTAL PROTEIN 5.9 gm/dL (6.4-8.2)
[2024-10-22 11:07] LABS: FREE TRIODOTIRONINE 5.02 pg/ml (2.18-3.98); T4 FREE 2.42 NG/ML (0.76-1.46)
[2024-10-22 15:30] VITALS: BP 136/77; O2SAT 98
[2024-10-22] MEDS ORDERED: METHIMAZOLE 10 MG TABLET PO STA (16:05)
[2024-10-22] MEDS ORDERED: POLYMYXIN B SULFATE 500,000 U VIAL IV ONE (21:45)
[2024-10-23 02:29] VITALS: BP 133/73; O2SAT 95
[2024-10-23 07:49] LABS: HEMATOCRIT 28.9 % (36.0-45.00); HEMOGLOBIN 9.6 g/dL (12.0-15.00); MEAN CELL VOLUME 92.4 fL (80.00-100.00); MEAN CORPUSCULAR HEMOGLOBIN 30.8 pg (27.00-32.0); MEAN CORPUSCULAR HGB CONC 33.3 g/dl (32.0-36.0); RED BLOOD COUNT 3.12 M/uL (4.00-6.00); RED CELL DISTRIBUTION WIDTH 18.7 % (11.5-14.5)
[2024-10-23 07:52] LABS: PLATELET COUNT 54 K/uL (150-450)
[2024-10-23 07:56] LABS: INR 1.19; PARTIAL THROMBOPLASTIN TIME 31.7 SECONDS (22.0-34.0); PROTHROMBIN TIME 12.8 SECONDS (9.0-11.5)
[2024-10-23] MEDS ORDERED: METHIMAZOLE 10 MG TABLET PO SCH (09:00)
[2024-10-23 09:09] VITALS: BP 155/84; O2SAT 96
[2024-10-23] MEDS ORDERED: POLYMYXIN B SULFATE 1,667 U/ML ML IV SCH (11:00)
[2024-10-23 17:52] VITALS: BP 130/60; O2SAT 97
[2024-10-24] MEDS ORDERED: ACETAMINOPHEN 500 MG GEL..CAP PO PRN (00:45)
[2024-10-24 01:52] VITALS: BP 164/76
[2024-10-24 06:35] LABS: HEMATOCRIT 30.3 % (36.0-45.00); HEMOGLOBIN 9.8 g/dL (12.0-15.00); MEAN CELL VOLUME 93.8 fL (80.00-100.00); MEAN CORPUSCULAR HEMOGLOBIN 30.4 pg (27.00-32.0); MEAN CORPUSCULAR HGB CONC 32.4 g/dl (32.0-36.0); RED BLOOD COUNT 3.23 M/uL (4.00-6.00); RED CELL DISTRIBUTION WIDTH 18.6 % (11.5-14.5)
[2024-10-24 06:51] LABS: PLATELET COUNT 87 K/uL (150-450)
[2024-10-24 07:20] VITALS: BP 132/75; O2SAT 95
[2024-10-24] MEDS ORDERED: CEFIDEROCOL SULFATE TOSYLATE 1 GM VIAL IV STA (12:03)
[2024-10-24] MEDS ORDERED: MINOCYCLINE HCL 100 MG CAPSULE PO STA (12:03)
[2024-10-24 17:54] VITALS: BP 154/78; O2SAT 100
[2024-10-24] MEDS ORDERED: HEPARIN SODIUM,PORCINE 5,000 UNITS/ML VIAL ONE (18:07)
[2024-10-24] MEDS ORDERED: MINOCYCLINE HCL 100 MG CAPSULE PO SCH (21:00)
[2024-10-24] MEDS ORDERED: CEFIDEROCOL SULFATE TOSYLATE 1 GM VIAL IV SCH (21:00)
[2024-10-25 01:06] VITALS: BP 112/80; O2SAT 97
[2024-10-25 06:51] LABS: HEMATOCRIT 27.3 % (36.0-45.00); MEAN CELL VOLUME 93.6 fL (80.00-100.00); MEAN CORPUSCULAR HEMOGLOBIN 30.6 pg (27.00-32.0); MEAN CORPUSCULAR HGB CONC 32.8 g/dl (32.0-36.0); RED BLOOD COUNT 2.92 M/uL (4.00-6.00); RED CELL DISTRIBUTION WIDTH 18.7 % (11.5-14.5)
[2024-10-25 07:06] LABS: PLATELET COUNT 69 K/uL (150-450)
[2024-10-25 07:19] LABS: ALBUMIN 2.1 gm/dL (3.4-5.0); BILIRUBIN TOTAL 0.75 mg/dL (0.3-1.2); CALCIUM 7.8 mg/dL (8.5-10.1); CREATININE SERUM 2.55 mg/dL (0.55-1.02); GFR 19.14; GLOBULINA 3.9 G/DL (2.4-3.5); MAGNESIUM 1.7 mg/dL (1.8-2.4); PHOSPHOROUS 3.1 mg/dL (2.5-4.9); POTASSIUM 4.14 mEq/L (3.5-5.1)
[2024-10-25 09:23] VITALS: BP 153/86; O2SAT 98
[2024-10-25] MEDS ORDERED: VITAMIN B COMPLEX 1 EACH PO SCH (10:00)
[2024-10-25] MEDS ORDERED: SOD FERRIC GLUC COMPLX/SUCROSE 62.5 MG/5 ML AMPUL IV SCH (12:00)
[2024-10-25 17:22] VITALS: BP 134/77; O2SAT 100
[2024-10-26 01:15] VITALS: BP 165/76; O2SAT 98
[2024-10-26] MEDS ORDERED: VITAMIN B COMPLEX 1 EACH PO SCH (09:00)
[2024-10-26 09:20] VITALS: BP 182/89; O2SAT 99
[2024-10-26 17:00] VITALS: BP 156/85; O2SAT 98
[2024-10-26] MEDS ORDERED: AMPICILLIN SODIUM/SULBACTAM NA 3,000 MG in 0.9 % SODIUM CHLORIDE 100 ML IV SCH (17:00)
[2024-10-26] MEDS ORDERED: HEPARIN SODIUM,PORCINE 5,000 UNITS/ML VIAL ONE (18:24)
[2024-10-27 01:30] VITALS: BP 160/85; O2SAT 98
[2024-10-27 05:47] LABS: D DIMER 5.42 MG/L; FIBRINOGEN 365 mg/dL (187.0-446.0); INR 1.15; PARTIAL THROMBOPLASTIN TIME 32.3 SECONDS (22.0-34.0); PROTHROMBIN TIME 12.4 SECONDS (9.0-11.5)
[2024-10-27 05:51] LABS: ALBUMIN 2.1 gm/dL (3.4-5.0); BILIRUBIN TOTAL 0.88 mg/dL (0.3-1.2); CREATININE SERUM 2.39 mg/dL (0.55-1.02); GFR 20.62; GLOBULINA 4.2 G/DL (2.4-3.5); MAGNESIUM 1.8 mg/dL (1.8-2.4); POTASSIUM 4.4 mEq/L (3.5-5.1); TOTAL PROTEIN 6.3 gm/dL (6.4-8.2)
[2024-10-27 06:01] LABS: COL EPI 196 SECONDS (82-175)
[2024-10-27 06:25] LABS: HEMATOCRIT 30.6 % (36.0-45.00); HEMOGLOBIN 9.8 g/dL (12.0-15.00); MEAN CELL VOLUME 95.3 fL (80.00-100.00); MEAN CORPUSCULAR HEMOGLOBIN 30.4 pg (27.00-32.0); PLATELET COUNT 89 K/uL (150-450); RED BLOOD COUNT 3.22 M/uL (4.00-6.00); RED CELL DISTRIBUTION WIDTH 18.9 % (11.5-14.5)
[2024-10-27 08:00] VITALS: BP 153/88; O2SAT 99
[2024-10-27 16:13] VITALS: BP 149/77
[2024-10-28 01:06] VITALS: BP 140/85; O2SAT 95
[2024-10-28 08:21] VITALS: BP 139/76; O2SAT 99
[2024-10-28 16:33] VITALS: BP 186/86
[2024-10-29 02:51] VITALS: BP 163/83; O2SAT 96
[2024-10-29 08:00] VITALS: BP 144/77; O2SAT 100
[2024-10-29 17:19] VITALS: BP 144/77
[2024-10-29 17:54] VITALS: BP 144/77
[2024-10-30 01:41] VITALS: BP 136/88; O2SAT 97
[2024-10-30 09:52] VITALS: BP 162/89; O2SAT 98
[2024-10-30 17:06] VITALS: BP 146/72
[2024-10-31 01:14] VITALS: BP 122/79
[2024-10-31 09:40] VITALS: BP 148/82; O2SAT 99
[2024-10-31 11:22] LABS: BASO % 0.1 % (0.1-1.2); EOS # 0.05 (0.04-0.54); EOS % 0.3 % (0.7-7.0); HEMATOCRIT 32.3 % (34.1-44.9); HEMOGLOBIN 10.4 g/dL (11.2-15.7); LYMPH # 1.67 (1.18-3.74); LYMPH % 9.8 % (19.3-53.1); MEAN CORPUSCULAR HEMOGLOBIN 29.5 pg (25.6-32.2); MONO # 1.49 (0.24-0.82); MONO % 8.7 % (4.7-12.5); NEUT # 13.59 (1.56-6.13); NEUT % 79.8 % (34.0-71.1); PLATELET COUNT 180 K/uL (163-369); RED BLOOD COUNT 3.53 M/uL (3.93-5.22); RED CELL DISTRIBUTION WIDTH 17.2 % (11.6-14.4)
[2024-10-31 11:24] LABS: INR 1.18; PARTIAL THROMBOPLASTIN TIME 30.2 SECONDS (22.0-34.0); PROTHROMBIN TIME 12.7 SECONDS (9.0-11.5)
[2024-10-31 11:55] LABS: ALBUMIN 2.1 gm/dL (3.4-5.0); BILIRUBIN TOTAL 0.96 mg/dL (0.3-1.2); CALCIUM 8.1 mg/dL (8.5-10.1); GLOBULINA 4.6 G/DL (2.4-3.5); MAGNESIUM 1.8 mg/dL (1.8-2.4); PHOSPHOROUS 6.4 mg/dL (2.5-4.9); TOTAL PROTEIN 6.7 gm/dL (6.4-8.2)
[2024-10-31 12:34] LABS: GFR 10.25
[2024-10-31 12:36] LABS: CREATININE SERUM 4.38 mg/dL (0.55-1.02); POTASSIUM 6.39 mEq/L (3.5-5.1)
[2024-10-31] MEDS ORDERED: FAMOTIDINE/PF 20 MG/2 ML VIAL IV PUSH SCH (13:35)
[2024-10-31] MEDS ORDERED: IPRATROPIUM/ALBUTEROL SULFATE 3 ML AMPUL.NEB IH SCH (17:00)
[2024-10-31] MEDS ORDERED: LIDOCAINE HCL 1% 10ML VIAL ONE (17:16)
[2024-10-31] MEDS ORDERED: LIDOCAINE HCL 1% 10ML VIAL IJ ONE (17:30)
[2024-10-31 18:30] VITALS: O2SAT 98
[2024-11-01 01:31] VITALS: BP 168/96; O2SAT 99
[2024-11-01 09:51] VITALS: BP 164/84; O2SAT 97
[2024-11-01 17:20] VITALS: BP 154/87; O2SAT 99
[2024-11-01 19:29] LABS: PH,URINE 7.5 (5.0-8.0); URINE APPEARANCE Cloudy; URINE BILIRRUBIN Negative (NEGATIVE); URINE BLOOD Trace; URINE COLOR Yellow; URINE KETONE Negative (NEGATIVE); URINE LEUKOCYTE Small; URINE NITRATE Negative; URINE PROTEIN >=1000 (NEGATIVE); URINE UROBILINOGEN 0.2 E.U./dl
[2024-11-01 19:33] LABS: URINE BACTERIA 74.6 uL (0.0-1933); URINE CAST 1.47 uL (0.0-1.40); URINE RBC 16.6 uL (0.0-20.8); URINE WBC 909.5 uL (0.0-23.2)
[2024-11-01 19:45] LABS: URINE EPITHELIAL CELLS 0.4 uL (0.0-38.8); URINE GLUCOSE 250 MG/DL (NEGATIVE)
[2024-11-01] MEDS ORDERED: FAMOtidine 20 MG TABLET PO SCH (21:00)
[2024-11-02 00:37] VITALS: BP 147/87; O2SAT 96
[2024-11-02 06:10] LABS: ALBUMIN 1.9 gm/dL (3.4-5.0); BILIRUBIN TOTAL 0.88 mg/dL (0.3-1.2); CALCIUM 7.7 mg/dL (8.5-10.1); MAGNESIUM 1.7 mg/dL (1.8-2.4); PHOSPHOROUS 6.8 mg/dL (2.5-4.9); TOTAL PROTEIN 5.9 gm/dL (6.4-8.2)
[2024-11-02 06:53] LABS: BASO % 0.2 % (0.1-1.2); EOS # 0.02 (0.04-0.54); EOS % 0.1 % (0.7-7.0); HEMATOCRIT 29.6 % (34.1-44.9); HEMOGLOBIN 9.6 g/dL (11.2-15.7); LYMPH % 3.8 % (19.3-53.1); MEAN CORPUSCULAR HEMOGLOBIN 30.1 pg (25.6-32.2); MONO # 0.67 (0.24-0.82); MONO % 4.2 % (4.7-12.5); NEUT # 14.39 (1.56-6.13); NEUT % 90.8 % (34.0-71.1); RED BLOOD COUNT 3.19 M/uL (3.93-5.22); RED CELL DISTRIBUTION WIDTH 17.2 % (11.6-14.4)
[2024-11-02 07:14] LABS: GFR 11.42
[2024-11-02 07:15] LABS: CREATININE SERUM 3.99 mg/dL (0.55-1.02)
[2024-11-02 07:16] LABS: POTASSIUM 6.27 mEq/L (3.5-5.1)
[2024-11-02 07:32] LABS: PLATELET COUNT 112 K/uL (163-369)
[2024-11-02 10:01] VITALS: BP 166/87; O2SAT 97
[2024-11-02] MEDS ORDERED: SODIUM POLYSTYRENE SULFONATE 30G/8 TSP PO SCH ×2 (13:00→17:00)
[2024-11-02 16:59] VITALS: BP 150/80; O2SAT 94
[2024-11-02] MEDS ORDERED: CALCIUM GLUCONATE 100 MG/ML VIAL IV ONE (22:30)
[2024-11-03 00:43] VITALS: BP 170/85; O2SAT 94
[2024-11-03 08:10] VITALS: BP 167/90; O2SAT 97
[2024-11-03 08:31] LABS: ALBUMIN 1.8 gm/dL (3.4-5.0); CALCIUM 7.9 mg/dL (8.5-10.1); PHOSPHOROUS 7.7 mg/dL (2.5-4.9)
[2024-11-03 08:56] LABS: GFR 9.54
[2024-11-03 08:58] LABS: CREATININE SERUM 4.66 mg/dL (0.55-1.02)
[2024-11-03 08:59] LABS: POTASSIUM 6.53 mEq/L (3.5-5.1)
[2024-11-03] MEDS ORDERED: PREDNISONE 10 MG TABLET PO SCH (09:00)
[2024-11-03] MEDS ORDERED: SODIUM POLYSTYRENE SULFONATE 30G/8 TSP PO SCH ×2 (12:00→17:00)
[2024-11-03] MEDS ORDERED: CALCIUM GLUCONATE 100 MG/ML VIAL IV NR (13:00)
[2024-11-03] MEDS ORDERED: LACTULOSE 20 G/30 ML BLIST.PACK PO NR (13:00)
[2024-11-03] MEDS ORDERED: SOD FERRIC GLUC COMPLX/SUCROSE 62.5 MG/5 ML AMPUL IV NR (14:30)
[2024-11-03 14:52] LABS: ALBUMIN 2.2 gm/dL (3.4-5.0); BILIRUBIN TOTAL 0.9 mg/dL (0.3-1.2); CALCIUM 8.5 mg/dL (8.5-10.1); GLOBULINA 4.5 G/DL (2.4-3.5); TOTAL PROTEIN 6.7 gm/dL (6.4-8.2)
[2024-11-03 14:59] LABS: GFR 9.09
[2024-11-03 15:00] LABS: CREATININE SERUM 4.86 mg/dL (0.55-1.02); POTASSIUM 6.33 mEq/L (3.5-5.1)
[2024-11-03 15:10] LABS: FREE TRIODOTIRONINE 0.87 pg/ml (2.18-3.98); T4 TOTAL 3.07 UG/DL (4.8-13.9)
[2024-11-03] MEDS ORDERED: LIDOCAINE HCL 1% 20 ML VIAL IJ ONE (16:56)
[2024-11-03] MEDS ORDERED: HEPARIN SODIUM,PORCINE/PF 100 UNIT/ML SYRINGE IV ONE (16:56)
[2024-11-03] MEDS ORDERED: PREDNISONE 5 MG TABLET PO SCH (17:00)
[2024-11-03 17:48] VITALS: BP 167/89; O2SAT 95
[2024-11-03] MEDS ORDERED: FAMOTIDINE/PF 20 MG/2 ML VIAL ONE (20:33)
[2024-11-03] MEDS ORDERED: SOD FERRIC GLUC COMPLX/SUCROSE 62.5 MG/5 ML AMPUL IV SCH (21:00)
[2024-11-04] VITALS: BP 151/85; O2SAT 94
[2024-11-04] MEDS ORDERED: SODIUM POLYSTYRENE SULFONATE 30G/8 TSP PO SCH (02:00)
[2024-11-04 06:58] LABS: BASO % 0.1 % (0.1-1.2); HEMATOCRIT 32.7 % (34.1-44.9); HEMOGLOBIN 10.4 g/dL (11.2-15.7); LYMPH # 0.74 (1.18-3.74); MEAN CORPUSCULAR HEMOGLOBIN 29.4 pg (25.6-32.2); MONO # 1.26 (0.24-0.82); MONO % 6.8 % (4.7-12.5); NEUT # 16.32 (1.56-6.13); NEUT % 88.2 % (34.0-71.1); RED BLOOD COUNT 3.54 M/uL (3.93-5.22)
[2024-11-04 07:14] LABS: PLATELET COUNT 130 K/uL (163-369)
[2024-11-04 07:28] LABS: BILIRUBIN TOTAL 0.9 mg/dL (0.3-1.2); GLOBULINA 4.3 G/DL (2.4-3.5); TOTAL PROTEIN 6.3 gm/dL (6.4-8.2)
[2024-11-04 08:10] VITALS: BP 159/89; O2SAT 97
[2024-11-04 09:00] LABS: GFR 8.9
[2024-11-04 09:01] LABS: PHOSPHOROUS 8.5 mg/dL (2.5-4.9)
[2024-11-04 09:02] LABS: CREATININE SERUM 4.95 mg/dL (0.55-1.02); POTASSIUM 6.37 mEq/L (3.5-5.1)
[2024-11-04] MEDS ORDERED: HEPARIN SODIUM,PORCINE 5,000 UNITS/ML VIAL IV NR (15:00)
[2024-11-04 16:36] VITALS: BP 146/82
[2024-11-04] MEDS ORDERED: PROMETHAZINE HCL 25 MG/ML AMPUL IV PRN (20:45)
[2024-11-05 01:42] VITALS: BP 188/100
[2024-11-05 07:54] LABS: ALBUMIN 1.9 gm/dL (3.4-5.0); BILIRUBIN TOTAL 0.82 mg/dL (0.3-1.2); CALCIUM 7.3 mg/dL (8.5-10.1); CREATININE SERUM 3.12 mg/dL (0.55-1.02); GFR 15.16; GLOBULINA 3.9 G/DL (2.4-3.5); MAGNESIUM 1.5 mg/dL (1.8-2.4); PHOSPHOROUS 5.9 mg/dL (2.5-4.9); POTASSIUM 4.07 mEq/L (3.5-5.1); TOTAL PROTEIN 5.8 gm/dL (6.4-8.2)
[2024-11-05 08:24] LABS: BASO % 0.2 % (0.1-1.2); EOS # 0.05 (0.04-0.54); EOS % 0.3 % (0.7-7.0); HEMATOCRIT 29.2 % (34.1-44.9); LYMPH # 1.22 (1.18-3.74); LYMPH % 6.8 % (19.3-53.1); MEAN CORPUSCULAR HEMOGLOBIN 30.1 pg (25.6-32.2); MONO # 1.03 (0.24-0.82); MONO % 5.8 % (4.7-12.5); NEUT # 15.43 (1.56-6.13); NEUT % 86.3 % (34.0-71.1); RED BLOOD COUNT 3.12 M/uL (3.93-5.22); RED CELL DISTRIBUTION WIDTH 18.6 % (11.6-14.4)
[2024-11-05 08:26] LABS: HEMOGLOBIN 9.4 g/dL (11.2-15.7); PLATELET COUNT 87 K/uL (163-369)
[2024-11-05 08:48] VITALS: BP 155/77; O2SAT 96
[2024-11-05] MEDS ORDERED: MAGNESIUM SULFATE IN WATER 50 ML IV NR (12:20)
[2024-11-05 13:35] VITALS: BP 144/77; O2SAT 99
[2024-11-05] MEDS ORDERED: ONDANSETRON HCL 4 MG in 0.9 % SODIUM CHLORIDE 50 ML IV PRN (14:00)
[2024-11-05] MEDS ORDERED: ZOLPIDEM TARTRATE 10 MG TABLET PO SCH (21:00)
[2024-11-06 02:13] VITALS: BP 148/86; O2SAT 99
[2024-11-06 08:51] VITALS: BP 166/85; O2SAT 96
[2024-11-06 13:27] VITALS: BP 168/82
[2024-11-06 14:28] LABS: ABG PH 7.365 (7.35-7.45); ABG PO2 73.8 mmHg (80-100); ABG pCO2 34.9 mmHg (35-45); BICARBONATE 19.5 mmol/l (23-25); SaO2 93.8 %; Tco2 20.6 mmol/l
[2024-11-06 15:10] LABS: allen test SATISFACTORY; mode ROOM AIR; o2 21 %; puncture site RADIAL RIGHT
[2024-11-06 16:17] VITALS: BP 148/81
[2024-11-06] MEDS ORDERED: AMLODIPINE BESYLATE 5 MG TABLET PO SCH (21:00)
[2024-11-07 01:12] VITALS: BP 159/94; O2SAT 95
[2024-11-07 06:44] LABS: BASO % 0.1 % (0.1-1.2); EOS # 0.01 (0.04-0.54); EOS % 0.1 % (0.7-7.0); HEMATOCRIT 32.4 % (34.1-44.9); HEMOGLOBIN 10.5 g/dL (11.2-15.7); LYMPH # 0.45 (1.18-3.74); LYMPH % 4.1 % (19.3-53.1); MEAN CORPUSCULAR HEMOGLOBIN 30.1 pg (25.6-32.2); MONO % 5.4 % (4.7-12.5); NEUT # 9.91 (1.56-6.13); NEUT % 89.7 % (34.0-71.1); RED BLOOD COUNT 3.49 M/uL (3.93-5.22); RED CELL DISTRIBUTION WIDTH 19.2 % (11.6-14.4)
[2024-11-07 07:03] LABS: PLATELET COUNT 104 K/uL (163-369)
[2024-11-07 07:52] VITALS: BP 165/83
[2024-11-07 07:55] LABS: ALBUMIN 1.9 gm/dL (3.4-5.0); BILIRUBIN TOTAL 0.8 mg/dL (0.3-1.2); CALCIUM 7.8 mg/dL (8.5-10.1); GFR 9.91; GLOBULINA 4.3 G/DL (2.4-3.5); MAGNESIUM 2.3 mg/dL (1.8-2.4); PHOSPHOROUS 7.2 mg/dL (2.5-4.9); POTASSIUM 5.71 mEq/L (3.5-5.1); TOTAL PROTEIN 6.2 gm/dL (6.4-8.2)
[2024-11-07 08:21] LABS: CREATININE SERUM 4.51 mg/dL (0.55-1.02)
[2024-11-07] MEDS ORDERED: SODIUM POLYSTYRENE SULFONATE 30G/8 TSP PO SCH (21:00)
[2024-11-08 03:24] LABS: BASO % 0.1 % (0.1-1.2); EOS % 0.2 % (0.7-7.0); HEMATOCRIT 28.7 % (34.1-44.9); HEMOGLOBIN 9.2 g/dL (11.2-15.7); LYMPH # 0.95 (1.18-3.74); MEAN CORPUSCULAR HEMOGLOBIN 29.6 pg (25.6-32.2); MONO # 0.95 (0.24-0.82); NEUT # 11.55 (1.56-6.13); PLATELET COUNT 79 K/uL (163-369); RED BLOOD COUNT 3.11 M/uL (3.93-5.22)
[2024-11-08 03:25] LABS: EOS # 0.03 (0.04-0.54)
[2024-11-08 08:15] VITALS: BP 160/85
[2024-11-08] MEDS ORDERED: IRON FUM,PS/FOLIC ACID/VITC/B3 1 CAP CAPSULE PO NR (12:00)
[2024-11-08] MEDS ORDERED: SOD FERRIC GLUC COMPLX/SUCROSE 62.5 MG/5 ML AMPUL IV SCH (12:00)
[2024-11-08 16:00] VITALS: BP 168/86; O2SAT 97
[2024-11-08] MEDS ORDERED: ONDANSETRON HCL 2 MG/ML VIAL ONE (17:00)
[2024-11-09 00:43] VITALS: BP 155/87; O2SAT 100
[2024-11-09 08:00] VITALS: BP 173/96; O2SAT 97
[2024-11-09] MEDS ORDERED: IRON FUM,PS/FOLIC ACID/VITC/B3 1 CAP CAPSULE PO SCH (09:00)
[2024-11-09 15:59] LABS: BASO % 0.1 % (0.1-1.2); EOS # 0.05 (0.04-0.54); EOS % 0.4 % (0.7-7.0); HEMATOCRIT 29.6 % (34.1-44.9); HEMOGLOBIN 9.4 g/dL (11.2-15.7); LYMPH # 0.36 (1.18-3.74); LYMPH % 2.8 % (19.3-53.1); MEAN CORPUSCULAR HEMOGLOBIN 29.6 pg (25.6-32.2); MONO # 0.41 (0.24-0.82); MONO % 3.1 % (4.7-12.5); NEUT # 12.12 (1.56-6.13); NEUT % 92.5 % (34.0-71.1); RED BLOOD COUNT 3.18 M/uL (3.93-5.22); RED CELL DISTRIBUTION WIDTH 19.7 % (11.6-14.4)
[2024-11-09 16:09] LABS: PLATELET COUNT 92 K/uL (163-369)
[2024-11-09] MEDS ORDERED: HEPARIN SODIUM,PORCINE 5,000 UNITS/ML VIAL ONE (16:17)
[2024-11-09 16:36] LABS: ALBUMIN 1.8 gm/dL (3.4-5.0); BILIRUBIN TOTAL 0.5 mg/dL (0.3-1.2); CALCIUM 7.6 mg/dL (8.5-10.1); GFR 10.04; GLOBULINA 3.5 G/DL (2.4-3.5); PHOSPHOROUS 5.3 mg/dL (2.5-4.9); POTASSIUM 5.06 mEq/L (3.5-5.1); TOTAL PROTEIN 5.3 gm/dL (6.4-8.2)
[2024-11-09 16:56] LABS: CREATININE SERUM 4.46 mg/dL (0.55-1.02)
[2024-11-09 16:57] VITALS: BP 181/97; O2SAT 97
[2024-11-09] MEDS ORDERED: NIFEDIPINE 30 MG TAB.SA.OSM PO SCH (17:00)
[2024-11-10 00:35] VITALS: BP 176/94
[2024-11-10 08:00] VITALS: BP 163/87; O2SAT 97
[2024-11-10 11:32] LABS: BASO % 0.2 % (0.1-1.2); EOS # 0.13 (0.04-0.54); EOS % 1.1 % (0.7-7.0); HEMATOCRIT 31.7 % (34.1-44.9); LYMPH # 1.42 (1.18-3.74); MEAN CORPUSCULAR HEMOGLOBIN 29.5 pg (25.6-32.2); MONO # 0.99 (0.24-0.82); MONO % 8.3 % (4.7-12.5); NEUT # 9.18 (1.56-6.13); NEUT % 77.2 % (34.0-71.1); RED BLOOD COUNT 3.39 M/uL (3.93-5.22); RED CELL DISTRIBUTION WIDTH 19.9 % (11.6-14.4)
[2024-11-10 11:45] LABS: PLATELET COUNT 78 K/uL (163-369)
[2024-11-10] MEDS ORDERED: NIFEDIPINE 30 MG TAB.SA.OSM PO SCH (14:33)
[2024-11-11 02:05] VITALS: BP 151/76
[2024-11-11] MEDS ORDERED: PREDNISONE 5 MG TABLET PO SCH (09:00)
[2024-11-11 09:09] VITALS: BP 168/88; O2SAT 95
[2024-11-11] MEDS ORDERED: CETIRIZINE1 MG/1 ML PO (09:42)
[2024-11-11] MEDS ORDERED: IPRAT-ALBUT 0.5-3 ML IH (09:42)
[2024-11-11] MEDS ORDERED: RETACRIT10000 UNIT SUBCUTANEO (09:42)
[2024-11-11] MEDS ORDERED: ISOSORBIDE MONO30 MG PO (09:44)
[2024-11-11] MEDS ORDERED: INTEGRA F CAPS1 EACH PO (09:44)
[2024-11-11] MEDS ORDERED: METOPROLOL TART50 MG PO (09:45)
[2024-11-11] MEDS ORDERED: HYDRALAZINE HCL50 MG PO (09:46)
[2024-11-11] MEDS ORDERED: Procardia Xl 30MG TA PO (09:46)
[2024-11-11] MEDS ORDERED: ZOLPIDEM TARTRA10 MG PO (09:46)
[2024-11-11] MEDS ORDERED: PHOSLO667 M1 PO (09:47)
[2024-11-11] MEDS ORDERED: FAMOTIDINE20 MG PO (09:47)
[2024-11-11] MEDS ORDERED: FUROSEMIDE40 MG PO (09:47)
[2024-11-11] MEDS ORDERED: PANTOPRAZOLE SO40 MG PO (09:47)
[2024-11-11] MEDS ORDERED: GERI-TUSSI100 MG/5 M PO (09:47)
[2024-11-11] MEDS ORDERED: METHIMAZOLE10 MG PO (09:47)
[2024-11-11] MEDS ORDERED: FLONASE16 GM NASAL (09:47)
[2024-11-11] MEDS ORDERED: PROTEINEX-18 LI30 ML PO (09:48)
[2024-11-11] MEDS ORDERED: Neurin-Sl Tablet Sl SL (09:48)
[2024-11-11] MEDS ORDERED: CALCITRIOL0.25 MCG PO (09:48)
[2024-11-11] MEDS ORDERED: PREDNISONE 5MG PO ×2 (09:48)
[2024-11-11 16:36] VITALS: BP 140/110; O2SAT 95
[2024-11-11] MEDS ORDERED: HEPARIN SODIUM,PORCINE 5,000 UNITS/ML VIAL ONE (17:13)
== END 2024-11-11 20:06 | disposition home or self-care (01) | DRG 177 ==
LOC: ER 04:40 → ICU 16:16 → MEDJ 16:16 → MEDI 16:16 → ICU 16:37 → MEDI 10-02 14:51
PROVIDERS: General Practice; Internal Medicine; Internal Medicine Endocrinology, Diabetes & Metabolism; Internal Medicine Hematology & Oncology; Internal Medicine Infectious Disease; Radiology Vascular & Interventional Radiology; ADMIT Internal Medicine; ATTEND Internal Medicine
PROC: BB24ZZZ Computerized Tomography (CT Scan) of Bilateral Lungs (ICD-10-PCS; 2024-09-26)
PROC: 30233N1 Transfusion of Nonautologous Red Blood Cells into Peripheral Vein, Percutaneous Approach (ICD-10-PCS; 2024-09-26)
PROC: 5A1D70Z Performance of Urinary Filtration, Intermittent, Less than 6 Hours Per Day (ICD-10-PCS; 2024-09-26)
PROC: 0W993ZZ Drainage of Right Pleural Cavity, Percutaneous Approach (ICD-10-PCS; principal; 2024-09-27)
PROC: B246ZZZ Ultrasonography of Right and Left Heart (ICD-10-PCS; 2024-09-27)
PROC: 0W9B30Z Drainage of Left Pleural Cavity with Drainage Device, Percutaneous Approach (ICD-10-PCS; 2024-09-28)
PROC: 5A1D70Z Performance of Urinary Filtration, Intermittent, Less than 6 Hours Per Day (ICD-10-PCS; 2024-09-28)
PROC: 5A1D70Z Performance of Urinary Filtration, Intermittent, Less than 6 Hours Per Day (ICD-10-PCS; 2024-09-30)
PROC: 4A12X4Z Monitoring of Cardiac Electrical Activity, External Approach (ICD-10-PCS; 2024-10-02)
PROC: BB24ZZZ Computerized Tomography (CT Scan) of Bilateral Lungs (ICD-10-PCS; 2024-10-03)
PROC: 5A1D70Z Performance of Urinary Filtration, Intermittent, Less than 6 Hours Per Day (ICD-10-PCS; 2024-10-03)
PROC: 0W9B30Z Drainage of Left Pleural Cavity with Drainage Device, Percutaneous Approach (ICD-10-PCS; 2024-10-04)
PROC: 5A1D70Z Performance of Urinary Filtration, Intermittent, Less than 6 Hours Per Day (ICD-10-PCS; 2024-10-05)
PROC: 5A1D70Z Performance of Urinary Filtration, Intermittent, Less than 6 Hours Per Day (ICD-10-PCS; 2024-10-07)
PROC: 5A1D70Z Performance of Urinary Filtration, Intermittent, Less than 6 Hours Per Day (ICD-10-PCS; 2024-10-10)
PROC: 5A1D70Z Performance of Urinary Filtration, Intermittent, Less than 6 Hours Per Day (ICD-10-PCS; 2024-10-12)
PROC: 02HV33Z Insertion of Infusion Device into Superior Vena Cava, Percutaneous Approach (ICD-10-PCS; 2024-10-14)
PROC: B548ZZA Ultrasonography of Superior Vena Cava, Guidance (ICD-10-PCS; 2024-10-14)
PROC: 5A1D70Z Performance of Urinary Filtration, Intermittent, Less than 6 Hours Per Day (ICD-10-PCS; 2024-10-14)
PROC: BW21ZZZ Computerized Tomography (CT Scan) of Abdomen and Pelvis (ICD-10-PCS; 2024-10-17)
PROC: 0WPBX0Z Removal of Drainage Device from Left Pleural Cavity, External Approach (ICD-10-PCS; 2024-10-17)
PROC: 5A1D70Z Performance of Urinary Filtration, Intermittent, Less than 6 Hours Per Day (ICD-10-PCS; 2024-10-17)
PROC: 5A1D70Z Performance of Urinary Filtration, Intermittent, Less than 6 Hours Per Day (ICD-10-PCS; 2024-10-19)
PROC: 3E0F7GC Introduction of Other Therapeutic Substance into Respiratory Tract, Via Natural or Artificial Opening (ICD-10-PCS; 2024-10-21)
PROC: 5A1D70Z Performance of Urinary Filtration, Intermittent, Less than 6 Hours Per Day (ICD-10-PCS; 2024-10-21)
PROC: 5A1D70Z Performance of Urinary Filtration, Intermittent, Less than 6 Hours Per Day (ICD-10-PCS; 2024-10-24)
PROC: 5A1D70Z Performance of Urinary Filtration, Intermittent, Less than 6 Hours Per Day (ICD-10-PCS; 2024-10-26)
PROC: 5A1D70Z Performance of Urinary Filtration, Intermittent, Less than 6 Hours Per Day (ICD-10-PCS; 2024-10-28)
PROC: B246ZZZ Ultrasonography of Right and Left Heart (ICD-10-PCS; 2024-10-31)
PROC: 5A1D70Z Performance of Urinary Filtration, Intermittent, Less than 6 Hours Per Day (ICD-10-PCS; 2024-10-31)
PROC: B54NZZZ Ultrasonography of Left Upper Extremity Veins (ICD-10-PCS; 2024-10-31)
PROC: B54CZZZ Ultrasonography of Left Lower Extremity Veins (ICD-10-PCS; 2024-10-31)
PROC: 05HM33Z Insertion of Infusion Device into Right Internal Jugular Vein, Percutaneous Approach (ICD-10-PCS; 2024-11-03)
PROC: B513YZA Fluoroscopy of Right Jugular Veins using Other Contrast, Guidance (ICD-10-PCS; 2024-11-03)
PROC: B543ZZA Ultrasonography of Right Jugular Veins, Guidance (ICD-10-PCS; 2024-11-03)
PROC: 5A1D70Z Performance of Urinary Filtration, Intermittent, Less than 6 Hours Per Day (ICD-10-PCS; 2024-11-04)
PROC: 5A1D70Z Performance of Urinary Filtration, Intermittent, Less than 6 Hours Per Day (ICD-10-PCS; 2024-11-07)
PROC: 5A1D70Z Performance of Urinary Filtration, Intermittent, Less than 6 Hours Per Day (ICD-10-PCS; 2024-11-09)
PROC: 5A1D70Z Performance of Urinary Filtration, Intermittent, Less than 6 Hours Per Day (ICD-10-PCS; 2024-11-11)
DX: J86.9 Pyothorax without fistula (principal); A41.54 Sepsis due to Acinetobacter baumannii; T80.211A Bloodstream infection due to central venous catheter, initial encounter; I50.33 Acute on chronic diastolic (congestive) heart failure; N18.6 End stage renal disease; J90 Pleural effusion, not elsewhere classified; I31.39 Other pericardial effusion (noninflammatory); R64 Cachexia; E46 Unspecified protein-calorie malnutrition; Z68.1 Body mass index [BMI] 19.9 or less, adult; N39.0 Urinary tract infection, site not specified; I13.2 Hypertensive heart and chronic kidney disease with heart failure and with stage 5 chronic kidney disease, or end stage renal disease; N17.9 Acute kidney failure, unspecified; E27.3 Drug-induced adrenocortical insufficiency; Z16.13 Resistance to carbapenem; I82.622 Acute embolism and thrombosis of deep veins of left upper extremity; J94.8 Other specified pleural conditions; E87.70 Fluid overload, unspecified; D51.3 Other dietary vitamin B12 deficiency anemia; D63.1 Anemia in chronic kidney disease; D64.89 Other specified anemias; D69.59 Other secondary thrombocytopenia; I80.8 Phlebitis and thrombophlebitis of other sites; I27.20 Pulmonary hypertension, unspecified; M06.80 Other specified rheumatoid arthritis, unspecified site; E05.90 Thyrotoxicosis, unspecified without thyrotoxic crisis or storm; F43.20 Adjustment disorder, unspecified; Z74.01 Bed confinement status; Z99.2 Dependence on renal dialysis; Z93.3 Colostomy status; Z79.52 Long term (current) use of systemic steroids; Z22 Carrier of infectious disease; Y82.8 Other medical devices associated with adverse incidents; Y92.230 Patient room in hospital as the place of occurrence of the external cause

== ENCOUNTER 2024-11-15 09:08 | Inpatient (IN) | payer OTHER ==
[~2024-11-15] VITALS: Ht 157.5 cm; Wt 51.7 kg
[2024-11-15] VITALS (8 sets, daily range): BP systolic 137–170; BP diastolic 86–99; O2SAT 100
[~2024-11-15 09:08] MED LIST changes: +CALCITRIOL0.25 MCG PO; +CETIRIZINE1 MG/1 ML PO; +FLONASE16 GM NASAL; +FUROSEMIDE40 MG PO; +GERI-TUSSI100 MG/5 M PO; +HYDRALAZINE HCL50 MG PO; +IPRAT-ALBUT 0.5-3 ML IH; +ISOSORBIDE MONO30 MG PO; +METOPROLOL TART50 MG PO; +PANTOPRAZOLE SO40 MG PO; +PHOSLO667 M1 PO; +PROTEINEX-18 LI30 ML PO; +Procardia Xl 30MG TA PO; +RETACRIT10000 UNIT SUBCUTANEO; +ZOLPIDEM TARTRA10 MG PO
[2024-11-15] MEDS ORDERED: OMEPRAZOLE20 MG (09:51)
[2024-11-15] MEDS ORDERED: TOPROL XL25 M1 (09:52)
[2024-11-15] MEDS ORDERED: INDUR (09:52)
[2024-11-15] MEDS ORDERED: LEVALBUTEROL HCL 0.63 MG/3 ML SOLUTION IH STA (10:24)
[2024-11-15 11:24] LABS: BASO % 0.4 % (0.1-1.2); EOS # 0.56 (0.04-0.54); EOS % 3.6 % (0.7-7.0); HEMATOCRIT 38.4 % (34.1-44.9); HEMOGLOBIN 11.9 g/dL (11.2-15.7); LYMPH # 1.88 (1.18-3.74); MEAN CORPUSCULAR HEMOGLOBIN 30.4 pg (25.6-32.2); MONO # 1.58 (0.24-0.82); MONO % 10.1 % (4.7-12.5); NEUT # 11.46 (1.56-6.13); NEUT % 73.4 % (34.0-71.1); PLATELET COUNT 147 K/uL (163-369); RED BLOOD COUNT 3.92 M/uL (3.93-5.22); RED CELL DISTRIBUTION WIDTH 22.5 % (11.6-14.4)
[2024-11-15 12:06] LABS: ABG PO2 64.7 mmHg (80-100); ABG pCO2 32.7 mmHg (35-45); BASE EXCESS -5.7 mmol/l; BICARBONATE 18.5 mmol/l (23-25); SaO2 91.2 %; Tco2 19.5 mmol/l
[2024-11-15 12:07] LABS: allen test NO SATISFACTORY; mode NASAL CANNULA; o2 32 %; puncture site RADIAL RIGHT
[2024-11-15 12:08] LABS: ALBUMIN 2.3 gm/dL (3.4-5.0); BILIRUBIN TOTAL 0.61 mg/dL (0.3-1.2); CALCIUM 8.2 mg/dL (8.5-10.1); GFR 6.94; POTASSIUM 5.72 mEq/L (3.5-5.1); TOTAL PROTEIN 7.2 gm/dL (6.4-8.2)
[2024-11-15 12:36] LABS: BILIRUBIN,CONJUGATED 0.12 mg/dL (0.0-0.2); BILIRUBIN,UNCONJUGATED 0.49 mg/dL (0.0-0.6); CREATININE SERUM 6.14 mg/dL (0.55-1.02)
[2024-11-15 12:46] LABS: PH,URINE 7.5 (5.0-8.0); URINE APPEARANCE Turbid; URINE BILIRRUBIN Negative (NEGATIVE); URINE BLOOD Small; URINE COLOR Yellow; URINE KETONE Trace (NEGATIVE); URINE LEUKOCYTE Moderate; URINE NITRATE Negative; URINE PROTEIN >=1000 (NEGATIVE); URINE UROBILINOGEN 0.2 E.U./dl
[2024-11-15 12:50] LABS: URINE BACTERIA 799.2 uL (0.0-1933); URINE CAST 8.69 uL (0.0-1.40); URINE RBC 59.8 uL (0.0-20.8)
[2024-11-15 12:53] LABS: ABG PH 7.335 (7.35-7.45); ABG PO2 401.2 mmHg (80-100); ABG pCO2 33.7 mmHg (35-45); BASE EXCESS -7.2 mmol/l; BICARBONATE 17.6 mmol/l (23-25); SaO2 99.9 %; Tco2 18.6 mmol/l
[2024-11-15 12:54] LABS: allen test NO SATISFACTORY; mode BPAP; o2 100 %; puncture site RADIAL RIGHT
[2024-11-15 12:59] LABS: INR 1.08; PARTIAL THROMBOPLASTIN TIME 26.6 SECONDS (22.0-34.0); PROTHROMBIN TIME 11.7 SECONDS (9.0-11.5)
[2024-11-15 13:15] LABS: URINE GLUCOSE 250 MG/DL (NEGATIVE)
[2024-11-15] MEDS ORDERED: MIDAZOLAM HCL/PF 5 MG/ML VIAL IV STA (13:39)
[2024-11-15] MEDS ORDERED: PROPOFOL 10,000 MCG/ML VIAL ONE ×2 (14:40→19:04)
[2024-11-15] MEDS ORDERED: PROPOFOL 10,000 MCG/ML VIAL IV PUSH STA (15:13)
[2024-11-15] MEDS ORDERED: SODIUM CHLORIDE 0.45 % 1,000 ML IV SCH (16:45)
[2024-11-15] MEDS ORDERED: PANTOPRAZOLE SODIUM 40 MG in 0.9 % SODIUM CHLORIDE 8 ML IV PUSH SCH (17:00)
[2024-11-15] MEDS ORDERED: NITROGLYCERIN IN 5 % DEXTROSE 250 ML IV SCH (17:00)
[2024-11-15] MEDS ORDERED: METHIMAZOLE 10 MG TABLET PO SCH (17:02)
[2024-11-15] MEDS ORDERED: METHYLPREDNISOLONE SOD SUCC 125 MG VIAL IV STA (17:02)
[2024-11-15] MEDS ORDERED: ENOXAPARIN SODIUM 30 MG/0.3 ML SYRINGE SUBCUTANEO SCH (17:03)
[2024-11-15] MEDS ORDERED: CEFTRIAXONE SODIUM 2,000 MG in DEXTROSE 5 % IN WATER 100 ML IV SCH (17:03)
[2024-11-15] MEDS ORDERED: INSULIN LISPRO 1,000 UNIT/10 ML UNITS SUBCUTANEO PRN (17:15)
[2024-11-15] MEDS ORDERED: PROPOFOL 100 ML IV SCH ×2 (17:15→17:45)
[2024-11-15] MEDS ORDERED: DEXTROSE 50 % IN WATER 0.5 G/ML DISP.SYRIN IV PRN (17:15)
[2024-11-15] MEDS ORDERED: hydrALAZINE HCL 20 MG VIAL IV PRN (17:15)
[2024-11-15] MEDS ORDERED: HEPARIN SODIUM,PORCINE 5,000 UNITS/ML VIAL ONE (18:24)
[2024-11-15] MEDS ORDERED: METHYLPREDNISOLONE SOD SUCC 125 MG VIAL ONE (19:23)
[2024-11-15] MEDS ORDERED: CEFTRIAXONE SODIUM 2,000 MG VIAL ONE (19:23)
[2024-11-15] MEDS ORDERED: NITROGLYCERIN IN 5 % DEXTROSE 50 MG/250 ML BOTTLE IV ONE (19:44)
[2024-11-15 20:07] LABS: CKMB 9.8 NG/ML (0.5-3.6)
[2024-11-16] VITALS (15 sets, daily range): BP systolic 117–163; BP diastolic 76–96; O2SAT 100
[2024-11-16] MEDS ORDERED: CHLORHEXIDINE GLUCONATE 15ML BRUSH KIT MM SCH (01:00)
[2024-11-16 04:57] LABS: PH,URINE 7.5 (5.0-8.0); URINE APPEARANCE Cloudy; URINE BILIRRUBIN Negative (NEGATIVE); URINE BLOOD Small; URINE COLOR Yellow; URINE KETONE 15 (NEGATIVE); URINE LEUKOCYTE Moderate; URINE NITRATE Negative; URINE PROTEIN >=1000 (NEGATIVE); URINE UROBILINOGEN 0.2 E.U./dl
[2024-11-16 04:58] LABS: ERYTHROCYTE SEDIMENTATION RATE 65 mm/hr (0-30)
[2024-11-16 05:00] LABS: URINE BACTERIA 438.1 uL (0.0-1933); URINE RBC 121.4 uL (0.0-20.8); URINE WBC 59.3 uL (0.0-23.2)
[2024-11-16 05:01] LABS: BASO % 0.1 % (0.1-1.2); HEMATOCRIT 33.8 % (34.1-44.9); HEMOGLOBIN 10.8 g/dL (11.2-15.7); LYMPH # 0.16 (1.18-3.74); LYMPH % 1.3 % (19.3-53.1); MEAN CORPUSCULAR HEMOGLOBIN 31.1 pg (25.6-32.2); MONO # 0.09 (0.24-0.82); MONO % 0.7 % (4.7-12.5); NEUT # 11.97 (1.56-6.13); NEUT % 97.4 % (34.0-71.1); RED BLOOD COUNT 3.47 M/uL (3.93-5.22); RED CELL DISTRIBUTION WIDTH 21.6 % (11.6-14.4)
[2024-11-16 05:04] LABS: PLATELET COUNT 89 K/uL (163-369)
[2024-11-16 05:25] LABS: URINE GLUCOSE 250 MG/DL (NEGATIVE); URINE YEAST NEGATIVE /hpf
[2024-11-16 05:27] LABS: CKMB 7.7 NG/ML (0.5-3.6)
[2024-11-16 05:47] LABS: ALBUMIN 1.8 gm/dL (3.4-5.0); ALKALINE PHOSPHATASE 104 U/L (50-136); ALT/SGPT 14 U/L (12-78); ANION GAP 19 (10.0-20.0); AST/SGOT 19 U/L (15-37); BILIRUBIN TOTAL 0.49 mg/dL (0.3-1.2); BLOOD UREA NITROGEN 36 mg/dL (7-18); BUN CREA RATIO 10 (7.0-25.0); CALCIUM 6.7 mg/dL (8.5-10.1); CARBON DIOXIDE 17 mEq/L (21-32); CHLORIDE 102 mmol/L (98-107); CREATININE SERUM 3.54 mg/dL (0.55-1.02); GFR 13.11; GLOBULINA 3.5 G/DL (2.4-3.5); GLUCOSE FASTING 92 mg/dL (65-100); OSMOLALITY SERUM 274 MOSM/KG (275-295); PHOSPHOROUS 4.9 mg/dL (2.5-4.9); POTASSIUM 4.84 mEq/L (3.5-5.1); SODIUM 133 mmol/L (136-145); TOTAL PROTEIN 5.3 gm/dL (6.4-8.2)
[2024-11-16 05:48] LABS: C-REACTIVE PROTEIN 7.88 MG/DL (0.00-0.29)
[2024-11-16 05:50] LABS: TSH < 0.005 uIU/mL (0.358-3.74)
[2024-11-16] MEDS ORDERED: NITROGLYCERIN IN 5 % DEXTROSE 250 ML IV SCH (07:45)
[2024-11-16 08:35] LABS: ABG PH 7.354 (7.35-7.45); ABG PO2 222.3 mmHg (80-100); ABG pCO2 33.8 mmHg (35-45); BASE EXCESS -6.1 mmol/l; BICARBONATE 18.4 mmol/l (23-25); SaO2 99.7 %; Tco2 19.4 mmol/l
[2024-11-16 08:47] LABS: allen test NO SATISFACTORY; mode MECHANI VENTILATOR; o2 100 %; puncture site RADIAL RIGHT
[2024-11-16] MEDS ORDERED: POLYVINYL ALCOHOL 15 ML DROPS OP SCH (09:00)
[2024-11-16] MEDS ORDERED: CHLORHEXIDINE GLUCONATE 120 ML BOTTLE TOP ONE (09:09)
[2024-11-16 15:14] LABS: CKMB 8.3 NG/ML (0.5-3.6)
[2024-11-16] MEDS ORDERED: MAGNESIUM SULFATE/D5W 100 ML IV NR (15:15)
[2024-11-16] MEDS ORDERED: hydrALAZINE HCL 20 MG VIAL IV PRN (17:30)
[2024-11-16] MEDS ORDERED: VANCOMYCIN HCL 500 MG VIAL IV SCH (19:30)
[2024-11-16] MEDS ORDERED: VANCOMYCIN HCL 1,000 MG VIAL IV NR (19:30)
[2024-11-16] MEDS ORDERED: ANIDULAFUNGIN 100 MG VIAL IV NR (19:45)
[2024-11-16] MEDS ORDERED: MEROPENEM 500 MG/VIAL VIAL IV SCH (21:00)
[2024-11-16 21:06] LABS: BASO % 0.1 % (0.1-1.2); HEMATOCRIT 30.2 % (34.1-44.9); HEMOGLOBIN 9.5 g/dL (11.2-15.7); LYMPH # 0.63 (1.18-3.74); LYMPH % 5.8 % (19.3-53.1); MEAN CORPUSCULAR HEMOGLOBIN 30.7 pg (25.6-32.2); MONO # 0.86 (0.24-0.82); MONO % 7.9 % (4.7-12.5); NEUT # 9.37 (1.56-6.13); NEUT % 85.7 % (34.0-71.1); RED BLOOD COUNT 3.09 M/uL (3.93-5.22); RED CELL DISTRIBUTION WIDTH 21.7 % (11.6-14.4)
[2024-11-16 21:11] LABS: PLATELET COUNT 99 K/uL (163-369)
[2024-11-17] VITALS (15 sets, daily range): BP systolic 92–144; BP diastolic 68–92; O2SAT 100
[2024-11-17 06:57] LABS: ALBUMIN 1.9 gm/dL (3.4-5.0); BASO % 0.2 % (0.1-1.2); BILIRUBIN TOTAL 0.36 mg/dL (0.3-1.2); CALCIUM 7.7 mg/dL (8.5-10.1); EOS # 0.02 (0.04-0.54); EOS % 0.2 % (0.7-7.0); GLOBULINA 3.5 G/DL (2.4-3.5); HEMATOCRIT 30.8 % (34.1-44.9); HEMOGLOBIN 9.7 g/dL (11.2-15.7); LYMPH # 1.12 (1.18-3.74); LYMPH % 10.8 % (19.3-53.1); MAGNESIUM 2.3 mg/dL (1.8-2.4); MEAN CORPUSCULAR HEMOGLOBIN 30.9 pg (25.6-32.2); MONO # 0.83 (0.24-0.82); NEUT # 8.26 (1.56-6.13); PHOSPHOROUS 8.4 mg/dL (2.5-4.9); RED BLOOD COUNT 3.14 M/uL (3.93-5.22); RED CELL DISTRIBUTION WIDTH 21.5 % (11.6-14.4); TOTAL PROTEIN 5.4 gm/dL (6.4-8.2)
[2024-11-17 07:03] LABS: GFR 9.94
[2024-11-17 07:04] LABS: CREATININE SERUM 4.5 mg/dL (0.55-1.02); POTASSIUM 5.96 mEq/L (3.5-5.1)
[2024-11-17 07:40] LABS: FREE TRIODOTIRONINE 0.76 pg/ml (2.18-3.98); T4 TOTAL 4.75 UG/DL (4.8-13.9)
[2024-11-17 07:46] LABS: PLATELET COUNT 94 K/uL (163-369)
[2024-11-17 08:55] LABS: ABG PH 7.369 (7.35-7.45); ABG PO2 151.8 mmHg (80-100); ABG pCO2 29.6 mmHg (35-45); BASE EXCESS -7.1 mmol/l; BICARBONATE 16.7 mmol/l (23-25); SaO2 99.2 %; Tco2 17.6 mmol/l
[2024-11-17 10:18] LABS: allen test SATISFACTORY; mode MECHANI VENTILATOR; o2 50 %; puncture site RADIAL RIGHT
[2024-11-17] MEDS ORDERED: HEPARIN SODIUM,PORCINE 5,000 UNITS/ML VIAL IV NR (19:15)
[2024-11-17] MEDS ORDERED: ANIDULAFUNGIN 100 MG VIAL IV SCH (21:00)
[2024-11-18] VITALS (8 sets, daily range): BP systolic 126–144; BP diastolic 77–92; O2SAT 98–100
[2024-11-18 07:27] LABS: BASO % 0.2 % (0.1-1.2); EOS # 0.18 (0.04-0.54); EOS % 1.6 % (0.7-7.0); HEMATOCRIT 32.5 % (34.1-44.9); HEMOGLOBIN 10.4 g/dL (11.2-15.7); LYMPH # 0.73 (1.18-3.74); LYMPH % 6.5 % (19.3-53.1); MEAN CORPUSCULAR HEMOGLOBIN 31.4 pg (25.6-32.2); MONO # 0.57 (0.24-0.82); MONO % 5.1 % (4.7-12.5); NEUT # 9.59 (1.56-6.13); RED BLOOD COUNT 3.31 M/uL (3.93-5.22); RED CELL DISTRIBUTION WIDTH 20.9 % (11.6-14.4)
[2024-11-18 07:34] LABS: PLATELET COUNT 65 K/uL (163-369)
[2024-11-18 08:05] LABS: ALBUMIN 1.8 gm/dL (3.4-5.0); CALCIUM 7.6 mg/dL (8.5-10.1); CREATININE SERUM 2.77 mg/dL (0.55-1.02); GFR 17.39; PHOSPHOROUS 5.7 mg/dL (2.5-4.9); POTASSIUM 4.13 mEq/L (3.5-5.1)
[2024-11-18 08:45] LABS: ABG PH 7.361 (7.35-7.45); ABG PO2 130.3 mmHg (80-100); ABG pCO2 33.6 mmHg (35-45); BASE EXCESS -5.8 mmol/l; BICARBONATE 18.6 mmol/l (23-25); SaO2 98.7 %; Tco2 19.6 mmol/l; o2 40 %
[2024-11-18 08:46] LABS: allen test NO SATISFACTORY; mode MECHANI VENTILATOR; puncture site RADIAL RIGHT
[2024-11-18 10:02] LABS: ABG PH 7.341 (7.35-7.45); ABG PO2 101.8 mmHg (80-100); ABG pCO2 35.5 mmHg (35-45); BASE EXCESS -6.1 mmol/l; BICARBONATE 18.8 mmol/l (23-25); SaO2 97.2 %; Tco2 19.8 mmol/l
[2024-11-18 10:03] LABS: allen test NO SATISFACTORY; mode NASAL CANNULA; o2 36 %; puncture site RADIAL RIGHT
[2024-11-18] MEDS ORDERED: MEROPENEM/VABORBACTAM 2 GM VIAL IV SCH (21:00)
[2024-11-18] MEDS ORDERED: DEXTROSE 50 % IN WATER 0.5 G/ML VIAL IV ONE (23:31)
[2024-11-19] MEDS ORDERED: DEXTROSE 50 % IN WATER 0.5 G/ML VIAL IV ONE (02:47)
[2024-11-19 04:09] VITALS: BP 145/84; O2SAT 100
[2024-11-19 07:33] VITALS: BP 149/86; O2SAT 99
[2024-11-19] MEDS ORDERED: Dextrose ORAL GEL 37.5GM GEL PO ONE (07:48)
[2024-11-19] MEDS ORDERED: DEXTROSE 10 % IN WATER 1,000 ML IV SCH (08:45)
[2024-11-19] MEDS ORDERED: CHLORHEXIDINE GLUCONATE 120 ML BOTTLE TOP ONE (10:37)
[2024-11-19 12:15] VITALS: BP 167/98; O2SAT 100
[2024-11-19] MEDS ORDERED: SIMETHICONE 125 MG CAPSULE PO SCH (13:00)
[2024-11-19 14:00] VITALS: BP 157/86
[2024-11-19 15:15] VITALS: BP 156/57; O2SAT 100
[2024-11-19] MEDS ORDERED: CARVEDILOL 6.25 MG TABLET PO SCH ×2 (17:00→21:00)
[2024-11-19] MEDS ORDERED: VANCOMYCIN HCL 500 MG VIAL ONE (17:39)
[2024-11-19] MEDS ORDERED: HEPARIN SODIUM,PORCINE 5,000 UNITS/ML VIAL ONE (18:10)
[2024-11-19] MEDS ORDERED: HEPARIN SODIUM,PORCINE 5,000 UNITS/ML VIAL IJ ONE (18:45)
[2024-11-19 20:00] VITALS: BP 152/90; O2SAT 100
[2024-11-19] MEDS ORDERED: VANCOMYCIN HCL 500 MG VIAL IV SCH (21:00)
[2024-11-20] VITALS (7 sets, daily range): BP systolic 117–148; BP diastolic 73–93; O2SAT 95–100
[2024-11-20] MEDS ORDERED: CARVEDILOL 6.25 MG TABLET PO SCH (21:00)
[2024-11-21 04:29] VITALS: BP 155/92; O2SAT 100
[2024-11-21 07:41] VITALS: BP 136/81; O2SAT 100
[2024-11-21] MEDS ORDERED: CARVEDILOL 12.5 MG TABLET PO SCH (09:00)
[2024-11-21 11:56] VITALS: BP 117/77; O2SAT 100
[2024-11-21 15:56] VITALS: BP 140/83; O2SAT 100
[2024-11-21] MEDS ORDERED: FLUCONAZOLE IN NACL,ISO-OSM 200 MG/100 ML PIGGYBAG IV NR (17:00)
[2024-11-21] MEDS ORDERED: CLOTRIMAZOLE/BETAMETHASONE DIP 15 GM TUBE TOP SCH (21:36)
[2024-11-21] MEDS ORDERED: KETOROLAC TROMETHAMINE 30 MG VIAL IV PRN (21:45)
[2024-11-21 22:11] VITALS: BP 133/80
[2024-11-22 01:30] VITALS: BP 147/82; O2SAT 98
[2024-11-22] MEDS ORDERED: PANTOPRAZOLE SODIUM 40 MG TABLET.DR PO SCH (09:00)
[2024-11-22] MEDS ORDERED: FLUCONAZOLE IN NACL,ISO-OSM 50 ML IV SCH (09:00)
[2024-11-22 09:26] LABS: BASO % 0.6 % (0.1-1.2); EOS # 0.48 (0.04-0.54); HEMATOCRIT 27.9 % (34.1-44.9); HEMOGLOBIN 9.1 g/dL (11.2-15.7); LYMPH # 0.94 (1.18-3.74); LYMPH % 13.7 % (19.3-53.1); MEAN CORPUSCULAR HEMOGLOBIN 31.5 pg (25.6-32.2); MONO # 0.74 (0.24-0.82); MONO % 10.8 % (4.7-12.5); NEUT # 4.61 (1.56-6.13); RED BLOOD COUNT 2.89 M/uL (3.93-5.22); RED CELL DISTRIBUTION WIDTH 18.1 % (11.6-14.4)
[2024-11-22 09:30] VITALS: BP 154/82; O2SAT 97
[2024-11-22 09:40] LABS: PLATELET COUNT 59 K/uL (163-369)
[2024-11-22 13:25] LABS: ALBUMIN 1.5 gm/dL (3.4-5.0); BILIRUBIN TOTAL 0.43 mg/dL (0.3-1.2); CALCIUM 7.7 mg/dL (8.5-10.1); GFR 10.94; GLOBULINA 3.4 G/DL (2.4-3.5); PHOSPHOROUS 6.7 mg/dL (2.5-4.9); POTASSIUM 4.63 mEq/L (3.5-5.1); TOTAL PROTEIN 4.9 gm/dL (6.4-8.2)
[2024-11-22 13:31] LABS: CREATININE SERUM 4.14 mg/dL (0.55-1.02)
[2024-11-22] MEDS ORDERED: HEPARIN SODIUM,PORCINE 5,000 UNITS/ML VIAL IJ NR (16:15)
[2024-11-22] MEDS ORDERED: CLOTRIMAZOLE/BETAMETHASONE DIP 15 GM TUBE TOP SCH (17:00)
[2024-11-22] MEDS ORDERED: FLUCONAZOLE IN NACL,ISO-OSM 2 MG/ML ML IV SCH (17:00)
[2024-11-22 17:08] VITALS: BP 134/80
[2024-11-23 02:53] VITALS: BP 145/79; O2SAT 100
[2024-11-23 08:09] VITALS: BP 147/81
[2024-11-23] MEDS ORDERED: EPOETIN ALFA-EPBX 10,000 UNIT/ML VIAL (Retacrit) SUBCUTANEO SCH (09:00)
[2024-11-23 17:04] VITALS: BP 149/77; O2SAT 100
[2024-11-24 02:22] VITALS: BP 144/82; O2SAT 97
[2024-11-24 05:03] LABS: BASO % 0.8 % (0.1-1.2); EOS # 0.41 (0.04-0.54); EOS % 6.5 % (0.7-7.0); MONO # 0.74 (0.24-0.82); MONO % 11.7 % (4.7-12.5); NEUT # 3.86 (1.56-6.13); NEUT % 61.2 % (34.0-71.1); RED BLOOD COUNT 2.77 M/uL (3.93-5.22); RED CELL DISTRIBUTION WIDTH 17.4 % (11.6-14.4)
[2024-11-24 05:33] LABS: HEMATOCRIT 26.2 % (34.1-44.9)
[2024-11-24 05:34] LABS: HEMOGLOBIN 8.6 g/dL (11.2-15.7)
[2024-11-24 05:45] LABS: ALBUMIN 1.5 gm/dL (3.4-5.0); BILIRUBIN TOTAL 0.5 mg/dL (0.3-1.2); CALCIUM 7.5 mg/dL (8.5-10.1); CREATININE SERUM 3.78 mg/dL (0.55-1.02); GFR 12.15; GLOBULINA 3.6 G/DL (2.4-3.5); MAGNESIUM 1.7 mg/dL (1.8-2.4); PHOSPHOROUS 4.3 mg/dL (2.5-4.9); POTASSIUM 4.18 mEq/L (3.5-5.1); TOTAL PROTEIN 5.1 gm/dL (6.4-8.2)
[2024-11-24 06:09] LABS: FREE TRIODOTIRONINE 1.35 pg/ml (2.18-3.98); T4 FREE 1.08 NG/ML (0.76-1.46); T4 TOTAL 5.6 UG/DL (4.8-13.9)
[2024-11-24 06:26] LABS: TSH 0.012 uIU/mL (0.358-3.74)
[2024-11-24 07:51] LABS: PLATELET COUNT 64 K/uL (163-369)
[2024-11-24 08:41] VITALS: BP 164/87
[2024-11-24] MEDS ORDERED: COSYNTROPIN 0.25 MG VIAL IV ONE (12:00)
[2024-11-24] MEDS ORDERED: HEPARIN SODIUM,PORCINE 5,000 UNITS/ML VIAL ONE (15:59)
[2024-11-24] MEDS ORDERED: AMINO ACIDS/PROTEIN HYDROLYS 30 ML BLIST.PACK PO SCH (17:00)
[2024-11-24 17:39] VITALS: BP 159/85; O2SAT 98
[2024-11-25 00:52] VITALS: BP 139/81; O2SAT 98
[2024-11-25 09:48] VITALS: BP 147/85
[2024-11-25 18:32] VITALS: BP 164/88; O2SAT 97
[2024-11-26 01:18] VITALS: BP 156/85; O2SAT 99
[2024-11-26 07:48] LABS: BASO % 0.8 % (0.1-1.2); EOS # 0.37 (0.04-0.54); EOS % 4.9 % (0.7-7.0); HEMATOCRIT 27.7 % (34.1-44.9); LYMPH # 1.18 (1.18-3.74); LYMPH % 15.5 % (19.3-53.1); MEAN CORPUSCULAR HEMOGLOBIN 31.5 pg (25.6-32.2); MONO # 0.63 (0.24-0.82); MONO % 8.3 % (4.7-12.5); NEUT # 5.32 (1.56-6.13); NEUT % 69.8 % (34.0-71.1); RED BLOOD COUNT 2.86 M/uL (3.93-5.22); RED CELL DISTRIBUTION WIDTH 17.2 % (11.6-14.4)
[2024-11-26 07:55] LABS: PLATELET COUNT 83 K/uL (163-369)
[2024-11-26 08:04] LABS: ALBUMIN 1.5 gm/dL (3.4-5.0); BILIRUBIN TOTAL 0.42 mg/dL (0.3-1.2); CALCIUM 7.7 mg/dL (8.5-10.1); CREATININE SERUM 3.75 mg/dL (0.55-1.02); GFR 12.26; GLOBULINA 3.8 G/DL (2.4-3.5); MAGNESIUM 1.6 mg/dL (1.8-2.4); PHOSPHOROUS 3.3 mg/dL (2.5-4.9); POTASSIUM 3.84 mEq/L (3.5-5.1); TOTAL PROTEIN 5.3 gm/dL (6.4-8.2)
[2024-11-26 08:08] LABS: C-REACTIVE PROTEIN 4.85 MG/DL (0.00-0.29)
[2024-11-26 10:07] VITALS: BP 154/83; O2SAT 97
[2024-11-26 16:33] VITALS: BP 145/73; O2SAT 100
[2024-11-26] MEDS ORDERED: SODIUM CHLORIDE NASAL SCH (21:00)
[2024-11-26 21:50] LABS: BASO % 1.1 % (0.1-1.2); EOS % 3.9 % (0.7-7.0); HEMATOCRIT 36.1 % (34.1-44.9); HEMOGLOBIN 12.3 g/dL (11.2-15.7); LYMPH # 0.92 (1.18-3.74); LYMPH % 12.1 % (19.3-53.1); MEAN CORPUSCULAR HEMOGLOBIN 30.6 pg (25.6-32.2); MONO # 0.78 (0.24-0.82); MONO % 10.3 % (4.7-12.5); NEUT # 5.44 (1.56-6.13); NEUT % 71.5 % (34.0-71.1); PLATELET COUNT 61 K/uL (163-369); RED BLOOD COUNT 4.02 M/uL (3.93-5.22)
[2024-11-27 01:19] VITALS: BP 148/80; O2SAT 98
[2024-11-27 09:52] VITALS: BP 154/79; O2SAT 96
[2024-11-27 17:28] VITALS: BP 144/78; O2SAT 100
[2024-11-28 00:16] VITALS: BP 154/83; O2SAT 96
[2024-11-28 06:21] LABS: BASO % 1.4 % (0.1-1.2); HEMATOCRIT 35.2 % (34.1-44.9); HEMOGLOBIN 11.7 g/dL (11.2-15.7); LYMPH # 1.14 (1.18-3.74); LYMPH % 14.4 % (19.3-53.1); MEAN CORPUSCULAR HEMOGLOBIN 30.8 pg (25.6-32.2); MONO # 0.96 (0.24-0.82); NEUT # 5.24 (1.56-6.13); NEUT % 66.1 % (34.0-71.1); RED CELL DISTRIBUTION WIDTH 16.7 % (11.6-14.4)
[2024-11-28 06:39] LABS: MONO % 12.1 % (4.7-12.5); PLATELET COUNT 105 K/uL (163-369)
[2024-11-28 07:14] LABS: ALBUMIN 1.4 gm/dL (3.4-5.0); BILIRUBIN TOTAL 0.5 mg/dL (0.3-1.2); CALCIUM 7.8 mg/dL (8.5-10.1); CREATININE SERUM 3.89 mg/dL (0.55-1.02); GFR 11.75; POTASSIUM 4.13 mEq/L (3.5-5.1); TOTAL PROTEIN 5.4 gm/dL (6.4-8.2)
[2024-11-28 08:26] VITALS: BP 156/88
[2024-11-28 18:12] VITALS: BP 160/82
== END 2024-11-28 19:23 | disposition home or self-care (01) | DRG 208 ==
LOC: ER → ICU 17:21 → ICU-2 17:21 → ICU 21:27 → MEDJ 11-21 17:45
PROVIDERS: General Practice; Internal Medicine; Internal Medicine Endocrinology, Diabetes & Metabolism; Internal Medicine Infectious Disease; Internal Medicine Nephrology; ADMIT Internal Medicine; ATTEND Internal Medicine
PROC: 5A1945Z Respiratory Ventilation, 24-96 Consecutive Hours (ICD-10-PCS; principal; 2024-11-15)
PROC: 5A1D70Z Performance of Urinary Filtration, Intermittent, Less than 6 Hours Per Day (ICD-10-PCS; 2024-11-15)
PROC: 0BH18EZ Insertion of Endotracheal Airway into Trachea, Via Natural or Artificial Opening Endoscopic (ICD-10-PCS; 2024-11-15)
PROC: BB24ZZZ Computerized Tomography (CT Scan) of Bilateral Lungs (ICD-10-PCS; 2024-11-16)
PROC: BW2FZZZ Computerized Tomography (CT Scan) of Neck (ICD-10-PCS; 2024-11-16)
PROC: B54PZZZ Ultrasonography of Bilateral Upper Extremity Veins (ICD-10-PCS; 2024-11-16)
PROC: B246ZZZ Ultrasonography of Right and Left Heart (ICD-10-PCS; 2024-11-16)
PROC: B34KZZZ Ultrasonography of Bilateral Upper Extremity Arteries (ICD-10-PCS; 2024-11-16)
PROC: 5A1D70Z Performance of Urinary Filtration, Intermittent, Less than 6 Hours Per Day (ICD-10-PCS; 2024-11-17)
PROC: 5A1D70Z Performance of Urinary Filtration, Intermittent, Less than 6 Hours Per Day (ICD-10-PCS; 2024-11-19)
PROC: BW2FZZZ Computerized Tomography (CT Scan) of Neck (ICD-10-PCS; 2024-11-21)
PROC: 4A12X4Z Monitoring of Cardiac Electrical Activity, External Approach (ICD-10-PCS; 2024-11-21)
PROC: BW4FZZZ Ultrasonography of Neck (ICD-10-PCS; 2024-11-22)
PROC: 30233N1 Transfusion of Nonautologous Red Blood Cells into Peripheral Vein, Percutaneous Approach (ICD-10-PCS; 2024-11-26)
PROC: 5A1D70Z Performance of Urinary Filtration, Intermittent, Less than 6 Hours Per Day (ICD-10-PCS; 2024-11-26)
DX: J96.90 Respiratory failure, unspecified, unspecified whether with hypoxia or hypercapnia (principal); A41.9 Sepsis, unspecified organism; J18.9 Pneumonia, unspecified organism; N18.6 End stage renal disease; J81.1 Chronic pulmonary edema; I32 Pericarditis in diseases classified elsewhere; J90 Pleural effusion, not elsewhere classified; Z99.2 Dependence on renal dialysis; E05.90 Thyrotoxicosis, unspecified without thyrotoxic crisis or storm; D69.6 Thrombocytopenia, unspecified; D72.828 Other elevated white blood cell count; E11.22 Type 2 diabetes mellitus with diabetic chronic kidney disease; Z79.4 Long term (current) use of insulin; I27.20 Pulmonary hypertension, unspecified; R00.0 Tachycardia, unspecified; B96.1 Klebsiella pneumoniae [K. pneumoniae] as the cause of diseases classified elsewhere

== ENCOUNTER 2025-03-20 06:21 | Inpatient (IN) | payer OTHER ==
[~2025-03-20] VITALS: Ht 149.9 cm; Wt 38.6 kg
[~2025-03-20 06:21] MED LIST changes: +INDUR; +OMEPRAZOLE20 MG; +TOPROL XL25 M1
[2025-03-20] MEDS ORDERED: NITROGLYCERIN IN 5 % DEXTROSE 50 MG/250 ML BOTTLE IV ONE (06:37)
[2025-03-20] MEDS ORDERED: NITROGLYCERIN 250 ML IV SCH (06:45)
[2025-03-20 07:04] LABS: BASO % 0.6 % (0.1-1.2); EOS # 0.17 (0.04-0.54); EOS % 2.1 % (0.7-7.0); LYMPH # 1.25 (1.18-3.74); LYMPH % 15.4 % (19.3-53.1); MEAN PLATELET VOLUME 10.00 fl (9.4-12.4); MONO # 0.84 (0.24-0.82); MONO % 10.3 % (4.7-12.5); NEUT # 5.79 (1.56-6.13); NEUT % 71.2 % (34.0-71.1); RED CELL DISTRIBUTION WIDTH 14.3 % (11.6-14.4)
[2025-03-20] MEDS ORDERED: NIFEDIPINE20 MG PO (07:33)
[2025-03-20] MEDS ORDERED: TOPROL XL25 M1 PO (07:33)
--- NOTE | 2025-03-20 07:34 | NUR ---
SE RECIBE PTE EN LA UNIDAD DE CRITICO KEKE DE EMERGENCIA EN COMPANIA DE AMBULANCIA SE UBICA EN CAMA #1 CON BARANDAS ELEVADAS EN POSICION SEMI GUTIERREZ CONECTADA A MONITOR CARDIACO Y OXIMETRIA CONTINUA. SE CANALIZA VENA X2 EN EXTREMIDADES SUPERIOR CON DRIP DE TRIDIL BAJANDO A 2MLS/HR. ABDOMEN SE ENCUENTRA DEPRESIBLE AL TACTO. EXTREMIDADES INFERIOR RASHID DE EDEMA Y ERITEMA. SE MANTIENE BAJO OBSERVACION POR CAMBIOS SIGNIFICATIVOS
[2025-03-20 07:46] LABS: INR 1.15
[2025-03-20 08:01] LABS: ALT/SGPT 19.0 U/L (12-78); AST/SGOT 18.0 U/L (15-37); BILIRUBIN TOTAL 0.39 mg/dL (0.3-1.2); BUN CREA RATIO 16.0 (7.0-25.0); GFR 9.18; GLOBULINA 5.4 G/DL (2.4-3.5); GLUCOSE FASTING 70.0 mg/dL (65-100); OSMOLALITY SERUM 294.0 MOSM/KG (275-295)
[2025-03-20 08:18] LABS: CREATININE SERUM 4.82 mg/dL (0.55-1.02)
[2025-03-20 08:54] LABS: ABG PH 7.431 (7.35-7.45); ABG PO2 67.2 mmHg (80-100); BICARBONATE 23.6 mmol/l (23-25)
[2025-03-20 08:55] LABS: o2 21 %
[2025-03-20 09:48] LABS: COVID-19 AG NEGATIVE (NEGATIVE)
[2025-03-20] MEDS ORDERED: CALCIUM GLUCONATE 100 MG/ML VIAL IV ONE (13:45)
[2025-03-20] MEDS ORDERED: NITROGLYCERIN IN 5 % DEXTROSE 250 ML IV SCH (13:45)
[2025-03-20] MEDS ORDERED: ENOXAPARIN SODIUM 30 MG/0.3 ML SYRINGE SUBCUTANEO SCH ×2 (13:48→14:03)
[2025-03-20] MEDS ORDERED: PANTOPRAZOLE SODIUM 40 MG in 0.9 % SODIUM CHLORIDE 8 ML IV PUSH SCH (13:49)
[2025-03-20 14:05] VITALS: BP 106/62
[2025-03-20] MEDS ORDERED: CALCIUM GLUCONATE 100 MG/ML VIAL ONE (14:11)
[2025-03-20 15:00] VITALS: BP 113/68; O2SAT 100
[2025-03-20 22:50] VITALS: O2SAT 96
[2025-03-21] VITALS (9 sets, daily range): BP systolic 150–156; BP diastolic 76–94; O2SAT 97–100
[2025-03-21 06:44] LABS: BASO % 0.7 % (0.1-1.2); EOS # 0.21 (0.04-0.54); EOS % 2.5 % (0.7-7.0); LYMPH # 1.49 (1.18-3.74); LYMPH % 18.1 % (19.3-53.1); MEAN PLATELET VOLUME 10.90 fl (9.4-12.4); MONO # 0.93 (0.24-0.82); MONO % 11.3 % (4.7-12.5); NEUT # 5.52 (1.56-6.13); NEUT % 67.0 % (34.0-71.1); RED CELL DISTRIBUTION WIDTH 14.6 % (11.6-14.4)
[2025-03-21] MEDS ORDERED: NITROGLYCERIN IN 5 % DEXTROSE 250 ML IV SCH ×2 (09:30→15:00)
[2025-03-21] MEDS ORDERED: BUSPIRONE HCL 15 MG TABLET PO SCH (13:53)
[2025-03-21 15:43] LABS: ALT/SGPT 22.0 U/L (12-78); AST/SGOT 23.0 U/L (15-37); BILIRUBIN TOTAL 0.52 mg/dL (0.3-1.2); BUN CREA RATIO 13.0 (7.0-25.0); CREATININE SERUM 2.12 mg/dL (0.55-1.02); GFR 23.68; GLOBULINA 5.3 G/DL (2.4-3.5); GLUCOSE FASTING 81.0 mg/dL (65-100); OSMOLALITY SERUM 274.0 MOSM/KG (275-295)
[2025-03-21] MEDS ORDERED: NIFEDIPINE 30 MG TAB.SA.OSM PO SCH (17:00)
[2025-03-21] MEDS ORDERED: METOPROLOL SUCCINATE 50 MG TAB.SR.24H PO SCH (17:00)
[2025-03-21] MEDS ORDERED: METHIMAZOLE 10 MG TABLET PO SCH (17:00)
[2025-03-21] MEDS ORDERED: PREDNISONE 5 MG TABLET PO SCH (17:00)
[2025-03-22] VITALS (8 sets, daily range): BP systolic 115–166; BP diastolic 65–88; O2SAT 98–100
[2025-03-22 06:24] LABS: BASO % 0.6 % (0.1-1.2); EOS # 0.04 (0.04-0.54); EOS % 0.6 % (0.7-7.0); LYMPH # 1.05 (1.18-3.74); LYMPH % 16.3 % (19.3-53.1); MEAN PLATELET VOLUME 11.00 fl (9.4-12.4); MONO # 0.65 (0.24-0.82); MONO % 10.1 % (4.7-12.5); NEUT # 4.62 (1.56-6.13); NEUT % 71.9 % (34.0-71.1); RED CELL DISTRIBUTION WIDTH 14.3 % (11.6-14.4)
[2025-03-22] MEDS ORDERED: AMINO ACIDS/PROTEIN HYDROLYS 30 ML BLIST.PACK PO SCH (13:23)
[2025-03-22] MEDS ORDERED: DIPHENHYDRAMINE HCL 50 MG in DEXTROSE 5 % IN WATER 50 ML IV PRN (13:45)
[2025-03-22] MEDS ORDERED: METHIMAZOLE 10 MG TABLET PO SCH (17:00)
[2025-03-22 17:11] LABS: BASO % 0.3 % (0.1-1.2); EOS # 0.25 (0.04-0.54); EOS % 3.9 % (0.7-7.0); LYMPH # 1.30 (1.18-3.74); LYMPH % 20.4 % (19.3-53.1); MEAN PLATELET VOLUME 10.70 fl (9.4-12.4); MONO # 0.71 (0.24-0.82); MONO % 11.1 % (4.7-12.5); NEUT # 4.09 (1.56-6.13); NEUT % 64.1 % (34.0-71.1); RED CELL DISTRIBUTION WIDTH 14.6 % (11.6-14.4)
[2025-03-22 18:36] LABS: T4 TOTAL 13.63 UG/DL (4.8-13.9)
[2025-03-22 18:44] LABS: FREE TRIODOTIRONINE 15.93 pg/ml (2.18-3.98); T4 FREE 6.63 NG/ML (0.76-1.46)
[2025-03-23] VITALS (7 sets, daily range): BP systolic 142–150; BP diastolic 77–86; O2SAT 93–100
[2025-03-23 05:51] LABS: ALT/SGPT 24.0 U/L (12-78); AST/SGOT 21.0 U/L (15-37); BILIRUBIN TOTAL 0.58 mg/dL (0.3-1.2); BUN CREA RATIO 17.0 (7.0-25.0); CREATININE SERUM 2.25 mg/dL (0.55-1.02); GFR 22.11; GLOBULINA 6.0 G/DL (2.4-3.5); GLUCOSE FASTING 146.0 mg/dL (65-100); OSMOLALITY SERUM 282.0 MOSM/KG (275-295)
[2025-03-23] MEDS ORDERED: PANTOPRAZOLE SODIUM 40 MG TABLET.DR PO SCH (09:00)
[2025-03-23] MEDS ORDERED: METHIMAZOLE 10 MG TABLET PO SCH (09:00)
[2025-03-23] MEDS ORDERED: ACETAMINOPHEN 500 MG GEL..CAP PO PRN (12:15)
== END 2025-03-23 17:56 | disposition home or self-care (01) | DRG 683 ==
LOC: ER 06:21 → MEDJ 13:39 → SEC-K 13:39 → MEDI 17:43 → SURH 19:45 → SEC-K 19:47 → MEDJ 19:48
PROVIDERS: General Practice; Internal Medicine; Internal Medicine Endocrinology, Diabetes & Metabolism; ADMIT Internal Medicine; ATTEND Internal Medicine
PROC: B246ZZZ Ultrasonography of Right and Left Heart (ICD-10-PCS; principal; 2025-03-20)
PROC: 4A12X4Z Monitoring of Cardiac Electrical Activity, External Approach (ICD-10-PCS; 2025-03-20)
PROC: 30233N1 Transfusion of Nonautologous Red Blood Cells into Peripheral Vein, Percutaneous Approach (ICD-10-PCS; 2025-03-22)
PROC: 5A1D70Z Performance of Urinary Filtration, Intermittent, Less than 6 Hours Per Day (ICD-10-PCS; 2025-03-22)
DX: N18.6 End stage renal disease (principal); I13.2 Hypertensive heart and chronic kidney disease with heart failure and with stage 5 chronic kidney disease, or end stage renal disease; J90 Pleural effusion, not elsewhere classified; R06.03 Acute respiratory distress; Z99.2 Dependence on renal dialysis; I50.9 Heart failure, unspecified; E03.9 Hypothyroidism, unspecified; E87.5 Hyperkalemia; D64.9 Anemia, unspecified; D63.1 Anemia in chronic kidney disease; E05.90 Thyrotoxicosis, unspecified without thyrotoxic crisis or storm

== ENCOUNTER 2025-04-13 11:16 | Inpatient (IN) | payer OTHER ==
[~2025-04-13] VITALS: Ht 152.4 cm; Wt 43.1 kg
[~2025-04-13 11:16] MED LIST changes: +NIFEDIPINE20 MG PO; +TOPROL XL25 M1 PO
[2025-04-13] MEDS ORDERED: METHYLPREDNISOLONE SOD SUCC 125 MG VIAL IV ONE (11:45)
[2025-04-13] MEDS ORDERED: ACETAMINOPHEN 500 MG GEL..CAP PO ONE (11:45)
[2025-04-13] MEDS ORDERED: LEVALBUTEROL HCL 1.25 MG/3 ML SOLUTION IH SCH (11:45)
[2025-04-13] MEDS ORDERED: IPRATROPIUM BROMIDE 0.5 MG/2.5 ML AMPUL.NEB IH SCH (11:45)
[2025-04-13] MEDS ORDERED: 0.9 % SODIUM CHLORIDE 500 ML IV ONE (12:00)
--- NOTE | 2025-04-13 12:57 | NUR ---
PTE ALERTA Y ORIENTADA X3, SE KHAI S/V. PTE LLEGA A ER EN AMBULANCIA Y REFIERE QUE PRESENTA DIFICULTAD RESPIRATORIA. PTE CON NONREBREATING MASK AL MOMENTO SATURACION 100%. PTE AL MOMENTO NO REFIERE DOLOR DE PECHO. SE REALIZA EKG Y SE PRESENTA A DR. ESCOBAR QUIEN ORDENA QUE SE UBIQUE PTE EN CRITICO. SE UBICA PTE EN AREA DE CRITICO Y SE COLOCA EN MONITOR CARDIACO. PTE SE REALIZA LAB Y SE ADMINISTRAN TX JENNIFER ORDEN MEDICA BAJO MEDIDAS ASEPTICAS. SE ORIENTA PTE QUIEJ REFIERE ENTENDER Y ACEPTAR. PTE REHUSA CHANEL. SE COMUNICA A SECRETARIA HIMANSHU CRISOSTOMO SOBRE PLACA PENDIENTE. SE NOTIFICA A PERSONAL DE TERAPIA RESPIRATORIA SOBRE TX PENDIENTES, HILLMAN REFIERE ENTENDER Y ACEPTAR. SE MANTIENE A PTE BAJO OBSERVACION.
[2025-04-13 13:09] LABS: ALT/SGPT 20.0 U/L (12-78); AST/SGOT 18.0 U/L (15-37); BILIRUBIN TOTAL 0.52 mg/dL (0.3-1.2); BUN CREA RATIO 13.0 (7.0-25.0); CREATININE SERUM 3.08 mg/dL (0.55-1.02); GFR 15.39; GLOBULINA 4.9 G/DL (2.4-3.5); GLUCOSE FASTING 71.0 mg/dL (65-100); OSMOLALITY SERUM 277.0 MOSM/KG (275-295)
[2025-04-13 13:09] LABS: COVID-19 AG NEGATIVE (NEGATIVE)
[2025-04-13 13:22] LABS: INR 1.09
[2025-04-13 13:52] LABS: D DIMER 3.19 MG/L
--- NOTE | 2025-04-13 15:00 | NUR ---
SE RECIBE PACIENTE ALERTA Y ORIENTADA X 3 ESFERAS EN CAMA CON BARANDAS ELEVADAS POR SEGURIDAD. CONECTADA A MONITOR CARDIACO, OXIMETRIA DE PULSO Y ASISTIDA POR UN VENTUY MASK AL 35%. RECIBIENDO IV'S 0.9NSS BAJANDO A 60ML/HR POR VENOPUNCION EN BRAZO SUSHMA AREA RASHID DE EDEMA Y ERITEMA. PACIENTE REHUSO INSERCION DE SONDA URINARIA. SE ORIENTA SOBRE MILLICENT DE MUESTRA DE U/A, REFIERE ENTENDER. SE ORIENTA A PACIENTE SOBRE TRATAMIENTO MEDICO, REFIERE ENTENDER. SE ADMINISTRA TRIDIL 50MG/250ML BAJANDO A 3ML/HR Y MEDICAMENTOS JENNIFER ORDEN MEDICA. SE BHARAT A PACIENTE EN CAMA CON BARANDAS ELEVADAS POR SEGURIDAD Y SE MANTIENE EN OBSERVACION POR CAMBIOS.
[2025-04-13 15:09] LABS: BASO % 0.2 % (0.1-1.2); EOS # 0.03 (0.04-0.54); EOS % 0.3 % (0.7-7.0); LYMPH # 0.45 (1.18-3.74); LYMPH % 5.0 % (19.3-53.1); MEAN PLATELET VOLUME 10.20 fl (9.4-12.4); MONO # 0.15 (0.24-0.82); MONO % 1.7 % (4.7-12.5); NEUT # 8.40 (1.56-6.13); NEUT % 92.5 % (34.0-71.1); RED CELL DISTRIBUTION WIDTH 16.0 % (11.6-14.4)
[2025-04-13] MEDS ORDERED: DILTIAZEM HCL 50 MG/10 ML VIAL IV ONE (15:15)
[2025-04-13] MEDS ORDERED: NITROGLYCERIN IN 5 % DEXTROSE 250 ML IV SCH (15:15)
[2025-04-13 15:19] LABS: ERYTHROCYTE SEDIMENTATION RATE > 130 mm/hr (0-30)
--- NOTE | 2025-04-13 17:30 | NUR ---
SE REALIZA REQUISION PARA DOS UNIDADES DE PRBC FRACCIONADAS, SE COLECTAN MUESTRAS DE LABORATORIO, SE COMPLETA DOCUMENTO DE REQUISION Y SE LLEVA AL LABORATORIO. SE ENTREGA A LAI LA CUAL NOTIFICA A AN DE [place] DE ABEBE DE [employer] LA CUAL INDICA QUE PACIENTE YA TIENE EXPEDIENTE PREVIO POR LO CUAL NO HAY QUE COLECTAR MUESTRA DE TIPO Y MARILYN. PACIENTE Y MEDICO FIRMAN CONSENTIMIENTO DE TRANSFUSION DE ABEBE, SE ANEJA AL EXPEDIENTE MEDICO.
[2025-04-13 20:00] VITALS: BP 155/83; O2SAT 100
[2025-04-13] MEDS ORDERED: ENOXAPARIN SODIUM 30 MG/0.3 ML SYRINGE SUBCUTANEO SCH (20:23)
[2025-04-13] MEDS ORDERED: PANTOPRAZOLE SODIUM 40 MG in 0.9 % SODIUM CHLORIDE 8 ML IV PUSH SCH (20:24)
[2025-04-13] MEDS ORDERED: METOPROLOL TARTRATE 50 MG TABLET PO SCH (20:29)
[2025-04-13] MEDS ORDERED: BUSPIRONE HCL 15 MG TABLET PO SCH (20:29)
[2025-04-13] MEDS ORDERED: ACETAMINOPHEN 325 MG TABLET PO PRN (20:30)
[2025-04-13 21:50] VITALS: BP 153/80; O2SAT 99
[2025-04-13 23:00] VITALS: BP 151/93; O2SAT 100
[2025-04-14] VITALS (21 sets, daily range): BP systolic 130–173; BP diastolic 88–103; O2SAT 96–100
[2025-04-14] MEDS ORDERED: ACETAMINOPHEN 500 MG GEL..CAP PO PRN (06:45)
[2025-04-14] MEDS ORDERED: BUSPIRONE HCL 15 MG TABLET PO SCH (09:00)
[2025-04-14] MEDS ORDERED: NITROGLYCERIN IN 5 % DEXTROSE 250 ML IV SCH (12:15)
[2025-04-14] MEDS ORDERED: AMINO ACIDS/PROTEIN HYDROLYS 30 ML BLIST.PACK PO SCH (17:00)
[2025-04-14 19:22] LABS: BASO % 0.1 % (0.1-1.2); EOS # 0.02 (0.04-0.54); EOS % 0.2 % (0.7-7.0); LYMPH # 1.35 (1.18-3.74); LYMPH % 10.2 % (19.3-53.1); MEAN PLATELET VOLUME 10.20 fl (9.4-12.4); MONO # 0.65 (0.24-0.82); MONO % 4.9 % (4.7-12.5); NEUT # 11.18 (1.56-6.13); NEUT % 84.3 % (34.0-71.1); RED CELL DISTRIBUTION WIDTH 16.3 % (11.6-14.4)
[2025-04-14] MEDS ORDERED: hydrALAZINE HCL 20 MG VIAL IV PRN (21:30)
[2025-04-15] VITALS (20 sets, daily range): BP systolic 119–163; BP diastolic 70–97; O2SAT 97–100
[2025-04-16] VITALS (14 sets, daily range): BP systolic 119–159; BP diastolic 71–83; O2SAT 96–100
[2025-04-16] MEDS ORDERED: CLONAZEPAM 0.5 MG TABLET PO SCH ×2 (21:00)
[2025-04-17] VITALS (7 sets, daily range): BP systolic 119–162; BP diastolic 57–106; O2SAT 96–100
[2025-04-17] MEDS ORDERED: METOPROLOL TARTRATE 50 MG TABLET PO SCH (09:00)
[2025-04-17] MEDS ORDERED: METOLAZONE 5 MG TABLET PO SCH (09:00)
[2025-04-17 11:42] LABS: BASO % 0.5 % (0.1-1.2); EOS # 0.38 (0.04-0.54); EOS % 7.0 % (0.7-7.0); LYMPH # 0.87 (1.18-3.74); LYMPH % 15.9 % (19.3-53.1); MEAN PLATELET VOLUME 10.10 fl (9.4-12.4); MONO # 0.67 (0.24-0.82); NEUT # 3.49 (1.56-6.13); NEUT % 63.9 % (34.0-71.1); RED CELL DISTRIBUTION WIDTH 16.8 % (11.6-14.4)
[2025-04-17 11:49] LABS: MONO % 12.3 % (4.7-12.5)
[2025-04-17 12:02] LABS: INR 1.18
[2025-04-17 12:19] LABS: ALT/SGPT 25.0 U/L (12-78); AST/SGOT 24.0 U/L (15-37); BILIRUBIN TOTAL 0.49 mg/dL (0.3-1.2); BUN CREA RATIO 15.0 (7.0-25.0); CREATININE SERUM 2.02 mg/dL (0.55-1.02); GFR 25.04; GLOBULINA 4.5 G/DL (2.4-3.5); GLUCOSE FASTING 116.0 mg/dL (65-100); OSMOLALITY SERUM 275.0 MOSM/KG (275-295)
[2025-04-18] VITALS (7 sets, daily range): BP systolic 130–150; BP diastolic 70–89; O2SAT 96–100
[2025-04-19 01:00] VITALS: O2SAT 99
[2025-04-19 02:43] VITALS: BP 118/70; O2SAT 97
[2025-04-19 05:49] VITALS: O2SAT 90
[2025-04-19 08:42] VITALS: BP 139/73; O2SAT 91
[2025-04-19 09:42] VITALS: O2SAT 93
== END 2025-04-19 13:29 | disposition home or self-care (01) | DRG 291 ==
LOC: ER 11:16 → EDBD 11:18 → ICU-2 20:58 → ICU 20:58 → MEDJ 04-17 17:58
PROVIDERS: General Practice; Internal Medicine; ADMIT Internal Medicine; ATTEND Internal Medicine
PROC: B24BYZZ Ultrasonography of Heart with Aorta using Other Contrast (ICD-10-PCS; principal; 2025-04-13)
PROC: 30243N1 Transfusion of Nonautologous Red Blood Cells into Central Vein, Percutaneous Approach (ICD-10-PCS; 2025-04-13)
PROC: 5A1D70Z Performance of Urinary Filtration, Intermittent, Less than 6 Hours Per Day (ICD-10-PCS; 2025-04-14)
PROC: 4A12X4Z Monitoring of Cardiac Electrical Activity, External Approach (ICD-10-PCS; 2025-04-17)
PROC: 5A1D70Z Performance of Urinary Filtration, Intermittent, Less than 6 Hours Per Day (ICD-10-PCS; 2025-04-17)
PROC: 5A1D70Z Performance of Urinary Filtration, Intermittent, Less than 6 Hours Per Day (ICD-10-PCS; 2025-04-19)
DX: I50.9 Heart failure, unspecified (principal); N18.6 End stage renal disease; J90 Pleural effusion, not elsewhere classified; D64.9 Anemia, unspecified; R06.02 Shortness of breath; E03.9 Hypothyroidism, unspecified; I50.30 Unspecified diastolic (congestive) heart failure

== ENCOUNTER 2025-05-23 14:02 | Inpatient (IN) | payer OTHER ==
[~2025-05-23] VITALS: Ht 157.5 cm; Wt 38.6 kg
[2025-05-23] MEDS ORDERED: RAYOS1 MG PO (14:14)
[2025-05-23] MEDS ORDERED: KAPSPARGO SPRIN25 MG PO (14:14)
--- NOTE | 2025-05-23 14:15 | NUR ---
SE RECIBE PTE ALERTA Y ORIENTADA X3 QUIEN REFIERE VENIR POR SOB. SE MIDEN S/V Y SE UBICA EN EMELIA 13 CON BARANDAS ELEVADAS Y NIVEL MAS BAJO DE LA MISMA.
[2025-05-23] MEDS ORDERED: IPRATROPIUM BROMIDE 0.5 MG/2.5 ML AMPUL.NEB IH SCH ×2 (16:15→22:07)
[2025-05-23] MEDS ORDERED: ALBUTEROL SULFATE 3 ML/2.5 MG AMPUL.NEB IH SCH (16:15)
[2025-05-23] MEDS ORDERED: IPRATROPIUM BROMIDE 0.5 MG/2.5 ML AMPUL.NEB IH ONE (16:31)
[2025-05-23] MEDS ORDERED: LEVALBUTEROL HCL 0.63 MG/3 ML SOLUTION IH ONE (16:32)
[2025-05-23 17:05] LABS: BASO % 0.5 % (0.1-1.2); EOS # 0.21 (0.04-0.54); EOS % 2.1 % (0.7-7.0); LYMPH # 1.65 (1.18-3.74); LYMPH % 16.8 % (19.3-53.1); MEAN PLATELET VOLUME 11.10 fl (9.4-12.4); MONO # 0.56 (0.24-0.82); MONO % 5.7 % (4.7-12.5); NEUT # 7.34 (1.56-6.13); NEUT % 74.6 % (34.0-71.1); RED CELL DISTRIBUTION WIDTH 17.0 % (11.6-14.4)
[2025-05-23 17:31] LABS: COVID-19 AG NEGATIVE (NEGATIVE)
--- NOTE | 2025-05-23 17:32 | NUR ---
SE EDUCA A PACIENTE SOBRE TRATAMIENTO MEDICO EL CUAL REFIERE ENTENDER, SE REALIZA MILLICENT DE MUESTRAS JENNIFER ORDEN MEDICA Y BAJO MEDIDAS ASEPTICAS. AL MOMENTO SE CONECTA PACIENTE A CANULA NASAL A 3LT.
[2025-05-23 17:55] LABS: ALT/SGPT 39.0 U/L (12-78); AST/SGOT 36.0 U/L (15-37); BILIRUBIN TOTAL 0.4 mg/dL (0.3-1.2); BUN CREA RATIO 18.0 (7.0-25.0); CREATININE SERUM 3.88 mg/dL (0.55-1.02); GFR 11.79; GLOBULINA 5.7 G/DL (2.4-3.5); GLUCOSE FASTING 70.0 mg/dL (65-100); OSMOLALITY SERUM 289.0 MOSM/KG (275-295)
[2025-05-23] MEDS ORDERED: NITROGLYCERIN IN 5 % DEXTROSE 250 ML IV SCH (18:45)
[2025-05-23] MEDS ORDERED: OSELTAMIVIR PHOSPHATE 75 MG CAPSULE PO ONE ×2 (19:00→21:00)
[2025-05-23] MEDS ORDERED: NITROGLYCERIN IN 5 % DEXTROSE 50 MG/250 ML BOTTLE IV ONE (21:00)
[2025-05-23] MEDS ORDERED: DOXYCYCLINE HYCLATE 100MG IV SCH (22:06)
[2025-05-23] MEDS ORDERED: SODIUM POLYSTYRENE SULFONATE 30G/8 TSP PO SCH (22:06)
[2025-05-23] MEDS ORDERED: CEFTRIAXONE SODIUM 2,000 MG in 0.9 % SODIUM CHLORIDE 100 ML IV SCH (22:06)
[2025-05-23] MEDS ORDERED: ATORVASTATIN CALCIUM 40 MG TABLET PO SCH (22:07)
[2025-05-23] MEDS ORDERED: FAMOTIDINE/PF 20 MG in 0.9 % SODIUM CHLORIDE 8 ML IV PUSH SCH (22:07)
[2025-05-23] MEDS ORDERED: ENOXAPARIN SODIUM 30 MG/0.3 ML SYRINGE SUBCUTANEO SCH (22:07)
[2025-05-23] MEDS ORDERED: ACETAMINOPHEN 500 MG GEL..CAP PO PRN (22:15)
[2025-05-23] MEDS ORDERED: ENOXAPARIN SODIUM 60 MG/0.6 ML SYRINGE SUBCUTANEO ONE (22:44)
[2025-05-23] MEDS ORDERED: CEFTRIAXONE SODIUM 2,000 MG VIAL ONE (22:45)
[2025-05-23] MEDS ORDERED: SODIUM POLYSTYRENE SULFONATE 15 G/4 TSP TSP ONE (22:45)
[2025-05-23] MEDS ORDERED: FAMOTIDINE/PF 20 MG/2 ML VIAL ONE (22:45)
[2025-05-23 23:35] VITALS: BP 177/87; O2SAT 100
[2025-05-23 23:35] LABS: INR 1.14
[2025-05-24] VITALS (15 sets, daily range): BP systolic 135–173; BP diastolic 73–100; O2SAT 99–100
[2025-05-24] MEDS ORDERED: PREDNISONE 5 MG TABLET PO SCH (09:00)
[2025-05-24] MEDS ORDERED: OSELTAMIVIR PHOSPHATE 30MG CAP PO SCH (09:00)
[2025-05-24] MEDS ORDERED: IPRATROPIUM BROMIDE 0.5 MG/2.5 ML AMPUL.NEB IH ONE ×3 (09:52→17:16)
[2025-05-24] MEDS ORDERED: CHLORHEXIDINE GLUCONATE 120 ML BOTTLE TOP ONE (12:08)
[2025-05-24] MEDS ORDERED: SODIUM POLYSTYRENE SULFONATE 15 G/4 TSP TSP ONE (16:31)
[2025-05-25] VITALS (13 sets, daily range): BP systolic 110–184; BP diastolic 60–92; O2SAT 27–100
[2025-05-25] MEDS ORDERED: IPRATROPIUM BROMIDE 0.5 MG/2.5 ML AMPUL.NEB IH ONE ×2 (00:46→08:31)
[2025-05-25] MEDS ORDERED: NIFEDIPINE 30 MG TAB.SA.OSM PO SCH (09:00)
[2025-05-25] MEDS ORDERED: OSELTAMIVIR PHOSPHATE 30MG CAP PO SCH (09:00)
[2025-05-25] MEDS ORDERED: OSELTAMIVIR PHOSPHATE 75 MG CAPSULE PO SCH (09:00)
[2025-05-26 00:29] VITALS: O2SAT 100
[2025-05-26 02:52] VITALS: BP 168/84; O2SAT 97
[2025-05-26 04:28] VITALS: O2SAT 100
[2025-05-26 07:52] LABS: BUN CREA RATIO 15.0 (7.0-25.0); CREATININE SERUM 3.81 mg/dL (0.55-1.02); GFR 12.04; GLUCOSE FASTING 56.0 mg/dL (65-100); OSMOLALITY SERUM 287.0 MOSM/KG (275-295)
[2025-05-26 09:04] VITALS: BP 191/100; O2SAT 99
[2025-05-26 12:53] VITALS: O2SAT 100
[2025-05-26] MEDS ORDERED: TAMIFLU45 MG PO (14:47)
== END 2025-05-26 16:14 | disposition home or self-care (01) | DRG 193 ==
LOC: ICU-2 → ER 14:02 → ICU-2 22:17 → MEDJ 05-25 16:14
PROVIDERS: General Practice; Internal Medicine Nephrology; ADMIT Internal Medicine; ATTEND Internal Medicine
PROC: B24BYZZ Ultrasonography of Heart with Aorta using Other Contrast (ICD-10-PCS; 2025-05-23)
PROC: BW24ZZZ Computerized Tomography (CT Scan) of Chest and Abdomen (ICD-10-PCS; 2025-05-25)
PROC: 4A12X4Z Monitoring of Cardiac Electrical Activity, External Approach (ICD-10-PCS; 2025-05-25)
PROC: 5A1D70Z Performance of Urinary Filtration, Intermittent, Less than 6 Hours Per Day (ICD-10-PCS; principal; 2025-05-26)
DX: J10.1 Influenza due to other identified influenza virus with other respiratory manifestations (principal); I21.A1 Myocardial infarction type 2; N18.6 End stage renal disease; I12.0 Hypertensive chronic kidney disease with stage 5 chronic kidney disease or end stage renal disease; J90 Pleural effusion, not elsewhere classified; J98.11 Atelectasis; E11.22 Type 2 diabetes mellitus with diabetic chronic kidney disease; Z79.4 Long term (current) use of insulin; Z99.2 Dependence on renal dialysis; I50.9 Heart failure, unspecified

== ENCOUNTER 2025-06-05 17:09 | Inpatient (IN) | payer OTHER ==
[~2025-06-05] VITALS: Ht 152.4 cm; Wt 38.6 kg
[~2025-06-05 17:09] MED LIST changes: +KAPSPARGO SPRIN25 MG PO; +RAYOS1 MG PO; +TAMIFLU45 MG PO
[2025-06-05 18:09] LABS: BASO % 0.4 % (0.1-1.2); EOS # 0.38 (0.04-0.54); EOS % 3.4 % (0.7-7.0); LYMPH # 1.05 (1.18-3.74); LYMPH % 9.4 % (19.3-53.1); MEAN PLATELET VOLUME 10.40 fl (9.4-12.4); MONO # 0.71 (0.24-0.82); MONO % 6.4 % (4.7-12.5); NEUT # 8.92 (1.56-6.13); NEUT % 80.0 % (34.0-71.1); RED CELL DISTRIBUTION WIDTH 16.2 % (11.6-14.4)
[2025-06-05 18:12] LABS: ERYTHROCYTE SEDIMENTATION RATE > 130 mm/hr (0-30)
[2025-06-05] MEDS ORDERED: PLAQUENIL (18:15)
[2025-06-05] MEDS ORDERED: NIFEDIPINE20 MG (18:16)
[2025-06-05] MEDS ORDERED: PREDNISONA (18:16)
[2025-06-05] MEDS ORDERED: METIMAZOL (18:17)
--- NOTE | 2025-06-05 18:17 | NUR ---
SE RECIBE PTE ALERTA Y ORIENTADA X3 EN AMBULANCIA EN COMPANIA DE PARAMEDICOS. LA MISAM REFIERE QUE EL SABADO NO PUEDO JASPREET REESE DIALISIS QUE LE TOCABA U HOY ESTABA SINTIENDO FALTA DE AIRE. SE OBSRVA CANULA A 4LT DE AMBULANCIA. PTE CON PATRICIA EN LADO DERECHO. SE OBSERVA EXTREMIDADES INFERIORES CON EDEMA. SE REALZIA EKG Y SE PRENSETA A GIBSON. BERLINGERI LA CUAL EVALUA Y FIRMA LE MISMO.
--- NOTE | 2025-06-05 18:19 | NUR ---
PTE EVALUADA POR LA DRA. VALDERRAMA. SE OIRNETA OSRBE TRATAMIENTO, VERBALIZA ENTENDER. SE CONECTA A MONTIR CARDIACO Y SATUROMETRO. SE CANALZIA Y SE CONECTAN MUESTRAS DE LAB JENNIFER ORDEN MEDICA BAJO MEDIDAS ASEPTICAS. SE NOTIFICAN ABG A NIA.
[2025-06-05 20:26] LABS: INR 1.09
[2025-06-05 20:37] LABS: ALT/SGPT 30.0 U/L (12-78); AST/SGOT 21.0 U/L (15-37); BILIRUBIN TOTAL 0.41 mg/dL (0.3-1.2); GLOBULINA 5.7 G/DL (2.4-3.5); GLUCOSE FASTING 96.0 mg/dL (65-100)
[2025-06-05 20:49] LABS: BUN CREA RATIO 18.0 (7.0-25.0); OSMOLALITY SERUM 299.0 MOSM/KG (275-295)
[2025-06-05 20:50] LABS: GFR 8.62
[2025-06-05 20:52] LABS: CREATININE SERUM 5.09 mg/dL (0.55-1.02)
[2025-06-05] MEDS ORDERED: SODIUM POLYSTYRENE SULFONATE 30G/8 TSP PO SCH (22:50)
[2025-06-05] MEDS ORDERED: ACETAMINOPHEN 500 MG GEL..CAP PO PRN (23:00)
[2025-06-05] MEDS ORDERED: NITROGLYCERIN IN 5 % DEXTROSE 250 ML IV SCH (23:00)
[2025-06-06] MEDS ORDERED: NITROGLYCERIN IN 5 % DEXTROSE 50 MG/250 ML BOTTLE IV ONE (00:45)
[2025-06-06] MEDS ORDERED: SODIUM POLYSTYRENE SULFONATE 15 G/4 TSP TSP ONE (00:46)
[2025-06-06 02:00] VITALS: BP 143/82; O2SAT 100
[2025-06-06 06:00] VITALS: BP 155/84; O2SAT 100
[2025-06-06 06:25] VITALS: BP 143/82
[2025-06-06 07:28] LABS: ALT/SGPT 25.0 U/L (12-78); AST/SGOT 22.0 U/L (15-37); BILIRUBIN TOTAL 0.46 mg/dL (0.3-1.2); GLOBULINA 4.9 G/DL (2.4-3.5); GLUCOSE FASTING 71.0 mg/dL (65-100)
[2025-06-06 07:34] VITALS: BP 162/92; O2SAT 99
[2025-06-06 07:37] LABS: OSMOLALITY SERUM 302.0 MOSM/KG (275-295); TSH < 0.005 uIU/mL (0.358-3.74)
[2025-06-06 07:38] LABS: BUN CREA RATIO 18.0 (7.0-25.0); GFR 8.02
[2025-06-06 07:39] LABS: CREATININE SERUM 5.4 mg/dL (0.55-1.02)
[2025-06-06] MEDS ORDERED: FAMOTIDINE/PF 20 MG in 0.9 % SODIUM CHLORIDE 8 ML IV PUSH SCH (09:00)
[2025-06-06] MEDS ORDERED: METOPROLOL SUCCINATE 25 MG TAB.SR.24H PO SCH (09:00)
[2025-06-06] MEDS ORDERED: PREDNISONE 1 MG TABLET PO SCH (09:00)
[2025-06-06] MEDS ORDERED: NIFEDIPINE 30 MG TAB.SA.OSM PO SCH (14:05)
[2025-06-06] MEDS ORDERED: hydrALAZINE HCL 20 MG VIAL IV PRN (14:15)
[2025-06-06] MEDS ORDERED: CEFTRIAXONE SODIUM 2,000 MG in DEXTROSE 5 % IN WATER 100 ML IV NR (19:00)
[2025-06-06 21:25] VITALS: O2SAT 100
[2025-06-07] VITALS (9 sets, daily range): BP systolic 136–176; BP diastolic 77–843; O2SAT 97–100
[2025-06-07 06:20] LABS: BASO % 0.5 % (0.1-1.2); EOS # 0.29 (0.04-0.54); EOS % 2.6 % (0.7-7.0); LYMPH # 1.03 (1.18-3.74); LYMPH % 9.3 % (19.3-53.1); MEAN PLATELET VOLUME 11.20 fl (9.4-12.4); MONO # 0.82 (0.24-0.82); MONO % 7.4 % (4.7-12.5); NEUT # 8.85 (1.56-6.13); NEUT % 79.9 % (34.0-71.1); RED CELL DISTRIBUTION WIDTH 15.6 % (11.6-14.4)
[2025-06-07 07:15] LABS: ALT/SGPT 24.0 U/L (12-78); AST/SGOT 19.0 U/L (15-37); BILIRUBIN TOTAL 0.47 mg/dL (0.3-1.2); GLOBULINA 5.4 G/DL (2.4-3.5); GLUCOSE FASTING 66.0 mg/dL (65-100)
[2025-06-07 07:39] LABS: BUN CREA RATIO 19.0 (7.0-25.0); GFR 7.27; OSMOLALITY SERUM 305.0 MOSM/KG (275-295)
[2025-06-07 07:45] LABS: CREATININE SERUM 5.88 mg/dL (0.55-1.02)
[2025-06-07] MEDS ORDERED: PREDNISONE 5 MG TABLET PO NR (10:00)
[2025-06-07] MEDS ORDERED: SOD FERRIC GLUC COMPLX/SUCROSE 62.5 MG in 0.9 % SODIUM CHLORIDE 50 ML IV SCH (12:00)
[2025-06-07] MEDS ORDERED: CITRIC ACID/SODIUM CITRATE 30 ML BLIST.PACK PO SCH (13:00)
[2025-06-07] MEDS ORDERED: CEFTRIAXONE SODIUM 2,000 MG VIAL ONE ×2 (16:12→17:37)
[2025-06-07] MEDS ORDERED: LACTOBACILLUS ACIDOPHILUS 1 CAP CAP PO SCH (17:00)
[2025-06-07] MEDS ORDERED: CEFTRIAXONE SODIUM 2,000 MG in DEXTROSE 5 % IN WATER 100 ML IV SCH (17:00)
[2025-06-07] MEDS ORDERED: FLUTICASONE PROPIONATE 50 MCG SPRAY NASAL SCH (18:00)
[2025-06-07] MEDS ORDERED: METHIMAZOLE 10 MG TABLET PO SCH (18:00)
[2025-06-07] MEDS ORDERED: CLONAZEPAM 0.5 MG TABLET PO SCH (21:00)
[2025-06-08 01:36] VITALS: O2SAT 100
[2025-06-08 03:03] VITALS: BP 117/73; O2SAT 98
[2025-06-08 05:44] VITALS: O2SAT 90
[2025-06-08 08:57] VITALS: BP 156/84; O2SAT 93
[2025-06-08] MEDS ORDERED: METOPROLOL TARTRATE 25 MG TABLET PO SCH (09:00)
[2025-06-08] MEDS ORDERED: PREDNISONE 5 MG TABLET PO SCH (09:00)
[2025-06-08 14:14] VITALS: O2SAT 92
== END 2025-06-08 15:57 | disposition home or self-care (01) | DRG 640 ==
LOC: ER 17:09 → EDBD 17:09 → ER 19:19 → SEC-K 22:50 → MEDJ 06-06 04:21 → SEC-K 06-06 04:37 → MEDI 06-06 15:32
PROVIDERS: General Practice; Physician Assistant Medical; ADMIT Internal Medicine; ATTEND Internal Medicine
PROC: B246ZZZ Ultrasonography of Right and Left Heart (ICD-10-PCS; 2025-06-05)
PROC: 4A12X4Z Monitoring of Cardiac Electrical Activity, External Approach (ICD-10-PCS; 2025-06-06)
PROC: 5A1D70Z Performance of Urinary Filtration, Intermittent, Less than 6 Hours Per Day (ICD-10-PCS; principal; 2025-06-07)
PROC: 8E0ZXY6 Isolation (ICD-10-PCS; 2025-06-07)
PROC: 5A1D70Z Performance of Urinary Filtration, Intermittent, Less than 6 Hours Per Day (ICD-10-PCS; 2025-06-08)
DX: E87.79 Other fluid overload (principal); N18.6 End stage renal disease; I12.0 Hypertensive chronic kidney disease with stage 5 chronic kidney disease or end stage renal disease; I38 Endocarditis, valve unspecified; E87.5 Hyperkalemia; D72.829 Elevated white blood cell count, unspecified; I27.20 Pulmonary hypertension, unspecified; E03.9 Hypothyroidism, unspecified; Z99.2 Dependence on renal dialysis; Z93.3 Colostomy status